=== PATIENT | male | born 1965 | race Caucasian/White ===

== ENCOUNTER 2023-08-02 02:05 | Emergency (ER) | payer SELFPAY ==
[2023-08-02 02:08] VITALS: BP 141/102
[2023-08-02 02:40] VITALS: BMI 22.5
[2023-08-02 03:00] VITALS: BP 137/89
[2023-08-02] MEDS: AUGMENTIN 875 MG/125 MG 1 TABLET PO (04:12)
[2023-08-02 04:24] LABS: % Basophils 1.2 % (0-2); % Eosinophils 0.8 % (0-6); % Immature Granulocytes 0.3 % (0-0.5); % Lymphocytes 28.8 % (20.5-51.1); % Monocytes 9.5 % (1.7-9.3); % Neutrophils 59.4 % (42.2-75.2); Absolute Basophils 0.1 10^3/uL (0-0.2); Absolute Eosinophils 0.1 10^3/uL (0-0.7); Absolute Lymphocytes 2.1 10^3/uL (1.2-3.4); Absolute Monocytes 0.7 10^3/uL (0.1-0.6); Absolute Neutrophils 4.3 10^3/uL (1.4-6.5); Hematocrit 41.4 % (39.0-52.0); Hemoglobin 15.1 g/dL (13.0-18.0); Mean Corp Hgb Conc. 36.5 g/dL (33.0-37.0); Mean Corpuscular Hgb 35.1 pg (27.0-31.0); Mean Corpuscular Volume 96.3 fL (80.0-94.0); Mean Platelet Volume 9.6 fL (7.4-10.4); Nucleated Red Blood Cells % 0 % (-); Platelet Count 239 10^3/uL (130-400); Red Cell Dist. Width 12.2 % (11.5-14.5); White Blood Cell Count 7.3 10^3/uL (4.8-10.8)
--- NOTE | 2023-08-02 04:27 | ED.SKININJ ---
HPI-Injury
General
Chief Complaint: Bite
Source: patient, previous hospital records (Previous ED visit November 2020 with complaints of chest pain, bilateral leg pain, cardiology consult during that ED visit. Patient offered admission but he declined.) and other (Limited records obtained via
telephone conversation with nursing supervisory civil engineer at [facility] regarding recent hospitalization there last week.)
Exam Limitations: none
Time Seen by Provider: 08/02/23 02:38
Nursing documentation reviewed up to this point in time: agreed with
Travel History
Have you had any contact with someone who has COVID-19?: No
Do you have any symptoms of coronavirus? Fever > 100 degrees, chills, cough, shortness of breath, sore throat, loss of taste or smell, muscle aches, or headache?: No
History of Present Illness-Injury
Initial Injury comments:
This is a 58-year-old gentleman who has longstanding history of daily alcohol use, history of coronary artery disease status post CABG 2 years ago, history of peripheral vascular disease status post right femoropopliteal bypass 1 year ago along with
history of left lower leg arterial stent 2 to 3 years ago.
He admits to chronic bilateral leg pain that has been ongoing for a number of years, pain worsens with ambulation generally able to walk approximately 50 yards and then needs to stop due to bilateral leg pain. He does admit to having 'good days and
bad days' but overall pain has been persistent for a number of years.
He follows with cardiology as well as vascular surgery at [facility] but admits to labs and follow-up more recently as he lost his healthcare coverage 3 to 4 months ago.
With worsening bilateral leg pain he presented to [facility] and was admitted for approximately 5 to 6 days last week being discharged on July 27.
During that hospitalization he underwent CT angiogram of the lower extremities, arterial ultrasound of lower extremities, echocardiogram. He was found to have acute occlusion of left femoral artery with distal reconstitution and was also noted to
have chronic right SFA occlusion with reconstitution distally along with patent femoral and popliteal bypass. Initially treated with IV heparin he was transition to low-dose aspirin and Plavix.
During that hospitalization he was evaluated by cardiology as well as neurosurgery and vascular surgery.
He was provided paperwork to help him obtain healthcare coverage. He has this paperwork at home but has not filed it as yet.
He was discharged on the with a prescription for low-dose aspirin, atorvastatin, Wellbutrin, Plavix, Cymbalta, folic acid, gabapentin, Toprol XL, multivitamin, thiamine and was also prescribed oxycodone IR 5 mg #15--4-day prescription.
Patient admits to moderate improvement in pain with oxycodone but pain has returned when oxycodone ran out.
He admits that he has not attempted to reach out to his primary care physician nor any of the specialists due to lack of healthcare coverage.
He denies chest pain, denies coughing or shortness of breath, denies fever nor chills. He does admit to mild chronic low back pain but denies increase in low back pain. No difficulty moving his bowels or bladder. He denies weakness nor numbness.
He plan to come to [facility] due to recurrent bilateral lower extremity pain and while he was lying in bed with his roommates dog, he states the dog suddenly became startled and inadvertently bit him on the right cheek. This happened
around 9 PM tonight. He admits to intermittent oozing of blood from right cheek bite wound, mild local pain but denies numbness, no dental injury.
Patient states he is up-to-date with Tdap having received this within the past year or 2.
The dog is reportedly up-to-date with immunizations including rabies vaccine.
Past History
Past History
ED Past Medical History: CAD, HTN, Hypercholesterolemia, Psychiatric and Other (Peripheral vascular disease, chronic bilateral leg pain/peripheral neuropathy, lumbar disc disease)
ED Past Surgical History: Cardiac (CABG 2021) and Other (Right femoropopliteal bypass, left lower extremity arterial stent)
Social History
Tobacco: Smoker
Alcohol: Daily
Drug: None
Personal: Single
Living: with roommate
Employment: Not employed
Family History
Family History: Other (Noncontributory)
Phy Exam
Physical Exam
Physical Exam:
GENERAL: 58-year-old gentleman appears somewhat older than stated age, bright and alert, easily communicative, pleasant, appears in no acute distress. Moderate odor of alcohol to the patient's breath.
EYE: pupils equal and reactive. anicteric
NECK: Supple, nontender, no meningismus, no significant adenopathy.
ENT: posterior pharynx is clear, oral mucosa is moist. TM clear b/l, nares patent. The right cheek has 3 very superficial minute abrasions along with a 2 cm superficial laceration just lateral to these abrasions. This laceration is superficial
dermal in depth. No active bleeding. There is minimal local tenderness to palpation. No erythema. No oozing. No hematoma. Teeth are intact. Full mandible range of motion without difficulty nor pain.
CARDIAC: Regular rate and rhythm. no murmur.
LUNGS: Clear breath sounds bilaterally, no acute respiratory distress, no wheezes/rales/rhonchi
ABDOMEN: Soft, nondistended, without focal tenderness, normoactive BS.
BACK: No midline bony tenderness. Straight leg raising is negative bilaterally.
NEUROLOGICAL: Alert and oriented x3, no focal neuro deficits. Gait is harris and steady.
SKIN: Warm and dry, normal color, skin intact. No rash.
MUSCULOSKELETAL: There is very minimal erythema to bilateral feet left greater than right foot both feet are warm to touch with palpable dorsalis pedis pulses bilaterally. Rapid distal capillary refill bilaterally. No C/C/E. peripheral pulses are
full and equal b/l. No appreciable tenderness to bilateral lower extremities. Full range of motion without difficulty.
PSYCH: Normal and appropriate interaction.
Course
Orders/Labs/Results
Orders:
Orders
08/02/23 03:59
Amoxicillin 875 mg/Clav 125 mg [Augmentin 875 mg/125 mg] 1 tablet PO NOW STA
08/02/23 04:12
Alcohol Urgent
Complete Blood Count/With Diff Urgent
Comprehensive Metabolic Panel Urgent
Lactic Acid Urgent
08/02/23 04:26
Gabapentin [Neurontin] 300 mg PO NOW STA
Oxycodone/Acetaminophen [Percocet 5/325] 1 tablet PO NOW STA
Abnormal Lab Results
08/02/23
04:12
RBC 4.30 L 10^6/uL
(4.70-6.10)
MCV 96.3 H fL
(80.0-94.0)
MCH 35.1 H pg
(27.0-31.0)
Absolute Monos (auto) 0.7 H 10^3/uL
(0.1-0.6)
Monocytes % 9.5 H %
(1.7-9.3)
Chloride 109 H mmol/L
(98-107)
Glucose 104 H mg/dl
(70-99)
08/02/23 04:12
08/02/23 04:12
Vital Signs
Initial and Last Documented VS:
Initial Vital Signs
Temp Pulse Resp BP Pulse Ox
98 F 124 24 141/102 98
08/02/23 02:08 08/02/23 02:08 08/02/23 02:08 08/02/23 02:08 08/02/23 02:08
Last Documented Vital Signs
Temp Pulse Resp BP Pulse Ox
98 F 104 18 137/89 98
08/02/23 02:08 08/02/23 03:00 08/02/23 03:00 08/02/23 03:00 08/02/23 02:08
MDM/Problems Addressed
Differential Diagnosis Includes:
Patient presents with longstanding history of bilateral leg pain, ongoing for many years with recent hospitalization for acute occlusive thrombus left femoral artery. Treated with IV heparin and discharged on aspirin and Plavix. He did not require
intervention.
He presents with persistent bilateral lower extremity pain that appears peripheral claudication in nature, worse with ambulation, improves with rest.
There also seems to be a neuropathic component to his leg pain, has history of chronic low back pain as well as chronic alcohol abuse. Recent evaluation with neurosurgeon during hospitalization with reported no specific recommendations other than
resumption of gabapentin.
Follow-up has been difficult for patient due to lapse in healthcare coverage.
He has been provided with paperwork to obtain medical assistance but admits that he has yet to file this paperwork.
Overall appears comfortable. Bilateral lower extremities are warm with palpable dorsalis pedis pulses bilaterally. Rapid capillary refill. There is no evidence of acute arterial ischemia. He does have minimal redness to toes of the left foot but
no definitive evidence of cellulitis. He has not had a fever.
Will check labs as well as lactic acid.
Patient requesting pain medication and although was prescribed a short course of oxycodone upon discharge last week we did discuss the hazards of narcotic pain medications along with daily alcohol consumption.
If labs are unremarkable I have agreed to write a small prescription for Percocet but patient has been cautioned that further prescriptions will not be provided by this ED.
He will ultimately require follow-up with his PCP as well as vascular surgeon and central office trouble shooter.
As far as the dog bite wound. Patient has a superficial laceration right cheek that does not require surgical repair. Wound has been thoroughly irrigated with normal saline solution. Will start a 1 week course of Augmentin for infection
prevention and wound will be dressed with bacitracin and a bandage.
Chronic conditions affecting care: HTN, CAD, PVD, Neurological disorder and Psychiatric illness
*Critical Care Note
Total Time (30-74mins, 75-104mins- exclusive of procedures): Not Applicable
Patient Management
Social determinants of health affecting care: Financial situation and Poor outpatient follow-up
ED Attending Note
-
Portions of this chart may have been created with voice recognition software.� Occasional wrong word or��sound alike� substitutions may have occurred due to the inherent limitations of voice recognition software.
Discharge Plan
Departure
Patient Disposition: Home (Routine Discharge)
Date of Disposition: 08/02/23
Time of Disposition: 05:06
Patient with high blood pressure during this ER visit?: No
Condition: Good
Discharge Problem:
acute on chronic b/l leg pain, chronic arterial peripheral vascular dis, Neuropathy involving both lower extremities, dog bite wound right face
Instructions: Animal Bites (DC), Peripheral Vascular (Arterial) Disease (DC), Peripheral Neuropathy (DC)
Prescriptions:
New
oxycodone-acetaminophen [Percocet] 5-325 mg Tablet
1 tab PO TIDPRN PRN (Reason: pain) Qty: 10 0RF
amoxicillin-pot clavulanate 875-125 mg tablet
1 tab PO BID Qty: 14 0RF
No Action
aspirin 81 MG tablet,delayed release (DR/EC)
81 mg PO DAILY
metoprolol succinate 50 MG tablet extended release 24 hr
50 mg PO BID Qty: 60 11RF
isosorbide mononitrate 30 MG tablet extended release 24 hr
30 mg PO DAILY Qty: 30 11RF
Referrals:
Kyra Bragg CRNP [Family Provider] - Call in 1-3 days for appt
Activity Restrictions/Additional Instructions:
I encourage you to follow-up with your vascular surgeon, central office trouble shooter as well as your primary care physician.
Continue current medications as prescribed upon discharge at [facility] last week.
Keep bite wound clean and apply bacitracin/antibiotic ointment once daily.
You have been prescribed Augmentin which is an antibiotic to be taken twice daily over the next week to help prevent infection from bite wound.
You have also been prescribed a few Percocet for leg pain. All further pain medication prescriptions must be provided by your primary care physician versus specialists.
Interventions
Interventions:
*Risk Screen - Suicide Last Done: 08/02/23 02:40
*General Assessment Last Done: 08/02/23 02:40
*Neglect/Abuse Screening Last Done: 08/02/23 02:40
ED- Fall Risk Assessment Last Done: 08/02/23 02:42
*ED COVID-19 Vaccine History Last Done: 08/02/23 02:40
ED-Musculoskeletal Assessment Last Done: 08/02/23 02:42
ED-Peripheral Vascular Assessment Last Done: 08/02/23 02:42
ED-Skin Assessment Last Done: 08/02/23 02:42
[2023-08-02] MEDS: NEURONTIN 300 MG PO (04:32)
[2023-08-02] MEDS: PERCOCET 5/325 1 TABLET PO (04:32)
[2023-08-02 04:40] LABS: Lactic Acid 1.4 mmol/L (0.7-2.0)
[2023-08-02 04:42] LABS: ALT (SGPT) 44 U/L (0-50); AST (SGOT) 44 U/L (17-59); Albumin 4.5 g/dl (3.5-5.0); Alcohol 233 mg/dl; Alkaline Phosphatase 63 U/L (38-126); Blood Urea Nitrogen 13 mg/dl (9-20); Calcium 9.1 mg/dl (8.4-10.2); Carbon Dioxide 25 mmol/L (22-30); Chloride 109 mmol/L (98-107); Estimated Creatinine Clearance 86 ml/min; Glucose 104 mg/dl (70-99); Potassium 3.8 mmol/L (3.5-5.1); Sodium 144 mmol/L (135-145); Total Bilirubin 0.4 mg/dl (0.2-1.3); Total Protein 7.3 g/dl (6.3-8.2); eGFR > 60.00
[2023-08-02 05:52] VITALS: BP 140/87
== END 2023-08-02 05:54 | disposition home or self-care (01) ==
LOC: EMR 02:05
PROVIDERS: EMERGENCY PHYSICIAN Emergency Medicine; FAMILY PHYSICIAN Nurse Practitioner Primary Care
DX: S01.411A Laceration without foreign body of right cheek and temporomandibular area, initial encounter (principal); W54.0XXA Bitten by dog, initial encounter; G62.9 Polyneuropathy, unspecified; M79.605 Pain in left leg; M79.604 Pain in right leg; I73.9 Peripheral vascular disease, unspecified; I10 Essential (primary) hypertension; I25.10 Atherosclerotic heart disease of native coronary artery without angina pectoris; F10.10 Alcohol abuse, uncomplicated; M54.50 Low back pain, unspecified; E78.00 Pure hypercholesterolemia, unspecified; G89.29 Other chronic pain; F17.200 Nicotine dependence, unspecified, uncomplicated; Z95.1 Presence of aortocoronary bypass graft; Z95.5 Presence of coronary angioplasty implant and graft; Z79.02 Long term (current) use of antithrombotics/antiplatelets; Z79.82 Long term (current) use of aspirin
CPT/HCPCS: 99283; 80053; 82077; 83605; 85025

== ENCOUNTER 2023-12-25 10:34 | Inpatient (IN) | payer OTHER, SELFPAY ==
[2023-12-25] VITALS (16 sets, daily range): BP systolic 89–152; BP diastolic 65–93; BMI 22.7; BMI 22.8
--- NOTE | 2023-12-25 07:12 | EDRN ---
Dr. Hernandez currently at the pts bedside speaking with the pt and the pts sister
--- NOTE | 2023-12-25 07:20 | ED.GENMED ---
History of Present Illness
General
Chief Complaint: Musculo-Skeletal Complaint
Source: patient and family
Exam Limitations: none
Time Seen by Provider: 12/25/23 06:56
Travel History
Have you had any contact with someone who has COVID-19?: Yes
Comment: spouse
Do you have any symptoms of coronavirus? Fever > 100 degrees, chills, cough, shortness of breath, sore throat, loss of taste or smell, muscle aches, or headache?: No
History of Present Illness
History of Present Illness:
58-year-old male who presents with a left leg injury. 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 He went to get more would and fell down into a ditch and injured his leg. Patient states he had to crawl back into the
house. Today he had to crawl to the car. Patient states he cannot bear weight on the leg. No head injury. No neck pain. No back pain. No numbness or tingling. He does have long history of vascular disease. He does continue to smoke.
Past History
Past History
ED Past Medical History: CAD, HTN, Hypercholesterolemia, Psychiatric and Other (Peripheral vascular disease, chronic bilateral leg pain/peripheral neuropathy, lumbar disc disease)
ED Past Surgical History: Cardiac (CABG 2021) and Other (Right femoropopliteal bypass, left lower extremity arterial stent)
Social History
Tobacco: Smoker
Alcohol: Daily
Drug: None
Personal: Single
Living: with roommate
Employment: Not employed
Family History
Family History: Other (Noncontributory)
Phy Exam
Physical Exam
Physical Exam:
CONSTITUTIONAL Vital signs reviewed, Patient alert and oriented to person, place and time. Well-appearing
HEAD atraumatic, normocephalic.
EYES eyelids normal to inspection, Extraocular muscles intact, Conjunctiva normal, Sclera normal.
NECK normal range of motion, Trachea midline, no jugular venous distention.
RESP no respiratory distress
BACK No obvious deformities
UPPER EXTREMITY Gross Range of motion normal, gross motor strength normal
LOWER EXTREMITY swelling noted to the left lower extremity with deformity. Chronic venous stasis changes to bilateral lower extremities. Does have distal perfusion. Moderate tenderness and unable to range the ankle or knee due to pain
NEURO Speech normal, No focal motor deficits include, Mary coma scale 15, Memory normal, Cranial Nerves intact to screening exam.
SKIN Skin warm, dry, and normal in color.
PSYCHIATRIC Patient oriented to person place and time, Normal affect.
Course
Orders/Labs/Results
Orders:
Orders
12/25/23 06:46
CR Leg Tibia/fibula Left 2 Vw Urgent
Comment:
Reason For Exam: injury
12/25/23 07:20
HYDROmorphone [Dilaudid] 1 mg IV NOW STA
12/25/23 07:24
Complete Blood Count/With Diff Urgent
Comprehensive Metabolic Panel Urgent
Vital Signs
Initial and Last Documented VS:
Initial Vital Signs
Temp Pulse Resp BP Pulse Ox
98 F 74 16 116/88 95
12/25/23 06:35 12/25/23 06:35 12/25/23 06:35 12/25/23 06:35 12/25/23 06:35
Last Documented Vital Signs
Temp Pulse Resp BP Pulse Ox
98 F 74 16 116/88 95
12/25/23 06:35 12/25/23 06:35 12/25/23 06:35 12/25/23 06:35 12/25/23 06:35
MDM/Problems Addressed
MDM/Problems Addressed:
Acute displaced distal tibial fracture, proximal fibula fracture, distal fibula fracture, alcohol abuse, tobacco abuse
*Radiology
Radiology exam reviewed: preliminary read by ED provider (Displaced tibial fracture, proximal and distal fibular fracture)
*Pulse Oximetry
Patient hypoxic: no
*Critical Care Note
Total Time (30-74mins, 75-104mins- exclusive of procedures): 30 minutes
Data Reviewed
Source: patient and family
Further Testing Considered But Not Given:
Consider CT of the head but patient did not hit his head and no complaints.
Patient Management
Discussion with other providers: Hospitalist and Physician Asst (Discussed with orthopedics)
Escalation/DeEscalation of care consider admission/obs:
Case discussed with orthopedics who likely will need fracture repair today. Admit. pain control
ED Attending Note
-
Portions of this chart may have been created with voice recognition software.� Occasional wrong word or��sound alike� substitutions may have occurred due to the inherent limitations of voice recognition software.
Discharge Plan
Departure
Patient Disposition: Admit
Date of Disposition: 12/25/23
Time of Disposition: 07:43
Admit to: Med/Surg
Presentation/result/management discussed w/ accepting MD/DO: Hospitalist
Discharge Problem:
displaced tibial fracture, Closed fibular fracture
Prescriptions:
No Action
aspirin 81 MG tablet,delayed release (DR/EC)
81 mg PO DAILY
metoprolol succinate 50 MG tablet extended release 24 hr
50 mg PO BID Qty: 60 11RF
isosorbide mononitrate 30 MG tablet extended release 24 hr
30 mg PO DAILY Qty: 30 11RF
Referrals:
Kyra Bragg CRNP [Family Provider] -
Interventions
Interventions:
*Risk Screen - Suicide Last Done: 12/25/23 06:35
*General Assessment Last Done: 12/25/23 06:35
*Neglect/Abuse Screening Last Done: 12/25/23 06:35
ED- Fall Risk Assessment Last Done: 12/25/23 06:56
*ED COVID-19 Vaccine History Last Done: 12/25/23 06:56
ED-Musculoskeletal Assessment Last Done: 12/25/23 06:56
Discharge Date and Time
Print Language: TAJIK
[2023-12-25] MEDS: DILAUDID 1 MG IV ×2 (07:26→08:16)
[2023-12-25 07:35] LABS: % Basophils 0.5 % (0-2); % Eosinophils 0.1 % (0-6); % Immature Granulocytes 0.5 % (0-0.5); % Monocytes 4.2 % (1.7-9.3); % Neutrophils 84.7 % (42.2-75.2); Absolute Lymphocytes 0.8 10^3/uL (1.2-3.4); Absolute Monocytes 0.3 10^3/uL (0.1-0.6); Absolute Neutrophils 6.8 10^3/uL (1.4-6.5); Hematocrit 40.6 % (39.0-52.0); Hemoglobin 14.8 g/dL (13.0-18.0); Mean Corp Hgb Conc. 36.5 g/dL (33.0-37.0); Mean Corpuscular Hgb 33.7 pg (27.0-31.0); Mean Corpuscular Volume 92.5 fL (80.0-94.0); Mean Platelet Volume 9.4 fL (7.4-10.4); Nucleated Red Blood Cells % 0 % (-); Platelet Count 230 10^3/uL (130-400); Red Blood Cell Count 4.39 10^6/uL (4.70-6.10); Red Cell Dist. Width 11.8 % (11.5-14.5); White Blood Cell Count 8.1 10^3/uL (4.8-10.8)
[2023-12-25 07:49] LABS: ALT (SGPT) 74 U/L (0-50); AST (SGOT) 67 U/L (17-59); Albumin 4.4 g/dl (3.5-5.0); Alkaline Phosphatase 72 U/L (38-126); Blood Urea Nitrogen 15 mg/dl (9-20); Calcium 9.2 mg/dl (8.4-10.2); Carbon Dioxide 22 mmol/L (22-30); Chloride 101 mmol/L (98-107); Estimated Creatinine Clearance 83 ml/min; Glucose 146 mg/dl (70-99); Potassium 4.2 mmol/L (3.5-5.1); Sodium 135 mmol/L (135-145); Total Bilirubin 0.4 mg/dl (0.2-1.3); Total Protein 7.1 g/dl (6.3-8.2); eGFR > 60.00
[2023-12-25] MEDS: NSS 1000 IV ×3 (08:17→20:52)
--- NOTE | 2023-12-25 09:23 | EDRN ---
left leg posterior long leg splint placed by this RN and PCT Marjorie, splint was checked and assessed and approved by Dr. Hernandez
--- NOTE | 2023-12-25 10:09 | HPS.HSE ---
Family Physician
-
Family Physician: SUN Tolliver
Chief Complaint
-
Left leg pain
History of Present Illness
58-year-old male alcoholic, was drinking last night and fell into a trench about 1-1/2 feet deep. Injured his left leg. Came into the hospital today for evaluation.
Found to have a left tibial/fibular fracture and we were asked admit him to the hospital.
Medical History
Past Medical History
Past Medical History: Reports Other
Additional Past Medical History:
CAD
PAD
Alcoholism
Essential hypertension
Hyperlipidemia
Peripheral neuropathy
Past Surgical History: Reports Other
Additional Past Surgical History:
CABG
Left thumb surgery
Right lower extremity femoropopliteal bypass
Left lower extremity stenting
Social History
Tobacco: Smoker
Alcohol: Daily
Personal: Single
Family History
Family History: Not pertinent
Allergies / Home Medications
Allergies reflects when Allergies were last updated in [facility].
Home Medications with original date entered in [facility]
Allergy/Medication List:
Allergies
Allergy/AdvReac Type Severity Reaction Status Date / Time
No Known Allergies Allergy Verified 08/02/23 02:13
Home Medications
aspirin 81 mg tablet,delayed release 81 mg PO DAILY 12/03/20
isosorbide mononitrate 30 mg tablet,extended release 24 hr 30 mg PO DAILY Blood pressure #30 tabs 12/03/20
metoprolol succinate 50 mg tablet,extended release 24 hr 50 mg PO BID Blood pressure #60 tabs 12/03/20
Review of Systems
-
History Source: Patient
A 12 point ROS was completed and negative except as noted: Yes
Musculoskeletal: Reports Other (Left lower extremity pain)
Physical Exam
Vital Signs
Vital Signs
Temp Pulse Resp BP Pulse Ox
98.2 F 75 16 96/70 97
12/25/23 08:04 12/25/23 08:04 12/25/23 08:04 12/25/23 09:13 12/25/23 09:15
Physical Exam
General: Well Developed, Well Nourished, No Apparent Distress and Comfortable
HEENT: NormoCephalic, Anicteric and Moist mucous membranes
Respiratory: Clear
Cardiac: S1/S2 and Regular Rhythm
GI: Soft, Non Tender and Non Distended
Genito-urinary: Deferred by me
Musculoskeletal: No Clubbing, No Cyanosis and No Edema
Skin: Warm and Dry
Neuro: AO x 3
Hematologic/Lymphatic: No Lymphadenopathy
Psych: Calm
Laboratory Results
-
12/25/23 07:24
12/25/23 07:24
Laboratory Results
Total Bilirubin 0.4 mg/dl (0.2-1.3) 12/25/23 07:24
AST 67 U/L (17-59) H 12/25/23 07:24
ALT 74 U/L (0-50) H 12/25/23 07:24
Alkaline Phosphatase 72 U/L (38-126) 12/25/23 07:24
Impression/Plan
-
Acute traumatic left fibular/tubular fracture - due to fall and underlying osteoporosis. Admit to telemetry. Consult orthopedics. N.p.o. after midnight for surgical repair. Discussed with Dr. Jackson.
Check preoperative EKG.
Severe alcohol use disorder -Daily drinker. Drinks about 8 beers and 2 glasses of wine per day. Last drink was yesterday. High risk for alcohol withdrawal syndrome. Start phenobarbital and lorazepam as needed. Thiamine and folic acid. Follow
alcohol withdrawal protocol.
Osteoporosis -likely due to underlying alcoholism, tobacco dependence. Discussed with patient and sister to seek treatment as outpatient. Speak with primary care doctor. Highly recommend alcohol and tobacco cessation.
Hyperglycemia -glucose 146 this morning. Rule out diabetes. Check hemoglobin A1c.
CAD/CABG
PAD
Essential hypertension -currently hypotensive in the emergency room, likely due to hypovolemia. IV fluids ordered.
Hyperlipidemia
Peripheral neuropathy
Full code
Updated sister at the bedside.
--- NOTE | 2023-12-25 11:08 | EDRN ---
the pts sister is going home to bring the pts medication list in, the pt is unsure of prescription medications that he takes every day
--- NOTE | 2023-12-25 12:29 | EDRN ---
this RN called the receiving nurse and gave verbal report, paper report was also tubed up to the receiving unit
[2023-12-25 12:40] LABS: Glycohemoglobin (HgbA1c) 5.7 % (4.0-5.6)
[2023-12-25 13:21] LABS: INR 1.03; PT 13.4 Sec (11.4-14.6)
[2023-12-25 13:22] LABS: APTT 25.7 Sec (23.4-35.0)
[2023-12-25 13:26] LABS: Alcohol 13 mg/dl; GGTP 49 U/L (15-73); Magnesium 2.1 mg/dl (1.6-2.3); Phosphorus 3.9 mg/dl (2.5-4.5)
--- NOTE | 2023-12-25 13:27 | CON.ORTHO ---
Consultation
-
Date/Time Consultation Requested: 12/25/2023 0717
Date/Time Consultation Performed: 12/25/2023 1200
Requesting Provider: Wong Hernandez
Performing Provider: Diego Jackson
Reason for Consultation: Left leg injury
Consultation - Orthopedics
History
Orthopedic Surgery Note
CC: Left tibia and fibula fracture
HPI: 58-year-old male presents for evaluation of a left leg injury sustained yesterday. He was gathering firewood outside his home and stepped into a trench while it was dark outside. He felt sudden onset pain in his leg with inability to
weight-bear. He called back to his home and was brought to the emergency department. He denies numbness and tingling in the left foot. He denies pain in the other extremities. No head trauma. He reports smoking daily as well as consuming
alcohol daily.
PMH/PSH: CAD sp CABG, HL, PVD with h/o bypass, lumbar disk disease
Medications: reviewed. plavix
Family History: Family history was reviewed. Noncontributory
Social history: Active smoker, daily etoh
Exam
General appearance: Pleasant. No acute distress.
Head: Normocephalic/atraumatic
Nose: No lesions or discharge.
Skin: No obvious rashes or open wounds
Lungs: No audible wheezing, no cough or sputum production
Musculoskeletal:
LLE:
Long leg splint in place
Toes WWP
Fires EHL/FHL without pain
No pain with passive stretch of toes and ankle in dorsiflexion
Imaging:
Left tib-fib x-rays performed in the emergency department 12/25/2023 were reviewed by me. These show a spiral fracture of the midshaft of the tibia. There is displacement about 75% of the cortical width. There is a fracture of the distal fibula at
the level of the syndesmosis without signs of medial clear space widening. There is an oblique fracture of the proximal fibula as well.
Assessment and plan: 58-year-old male with a history of smoking presents after sustaining a left displaced tibia shaft fracture after a fall last night. No signs of compartment syndrome. I discussed treatment options with the patient including
operative and nonoperative treatment. We discussed that given the degree of displacement and the recovery process associated with nonoperative treatment a long-leg cast, shared decision was to proceed with left tibia shaft fracture ORIF with
intramedullary latasha. We discussed that the left distal fibula fracture be assessed at the time of surgery for stability and displacement once the tibia is out to length. Will also assess the soft tissue around the distal fibula. If necessary we
will also surgically fix the left distal fibula fracture with plate and screws. We discussed that he will be touchdown weightbearing for about 4 weeks. He will be placed in a cam walker. We discussed elevation and ice between now and surgery to
help reduce swelling. We discussed risks of surgery including possible infection, nonunion, hardware complication, DVT, need for further surgery, anterior knee pain. All questions were answered. We discussed the need for smoking cessation to help
reduce the risk of nonunion.
Plan for ORIF tomorrow 12/26/2023
NPO after midnight
Smoking cessation
Strict elevation and ice
q4 hours neurovascular checks
NWB LLE
Diego Jackson MD
> 75 minutes was spent reviewing the clinical information, evaluating the patient, and formulating clinical plan.
Allergies / Home Medications
Allergy/AdvReac Type Severity Reaction Status Date / Time
No Known Allergies Allergy Verified 08/02/23 02:13
�Medication �Instructions �Recorded
aspirin 81 mg tablet,delayed 81 mg PO DAILY 12/25/23
release
atorvastatin 40 mg tablet 40 mg PO DAILY 12/25/23
clopidogrel 75 mg tablet 75 mg PO DAILY 12/25/23
duloxetine 60 mg capsule,delayed 60 mg PO DAILY 12/25/23
release
gabapentin 800 mg tablet 1,600 mg PO DAILY 12/25/23
lorazepam 0.5 mg tablet 0.5 mg PO DAILY PRN anxiety 12/25/23
losartan 25 mg tablet 25 mg PO DAILY 12/25/23
magnesium oxide 400 mg (241.3 mg 400 mg PO DAILY 12/25/23
magnesium) tablet
metoprolol succinate 25 mg 50 mg PO DAILY 12/25/23
tablet,extended release 24 hr
Vital Signs / Lab Results
Temp Pulse Resp BP Pulse Ox
98 F 76 20 152/93 96
12/25/23 13:09 12/25/23 13:09 12/25/23 13:09 12/25/23 13:09 12/25/23 13:09
12/25/23 07:24
12/25/23 07:24
[2023-12-25] MEDS: NSS 500 IV (13:42)
[2023-12-25] MEDS: CYMBALTA DELAYED RELEASE 60 MG PO (13:44)
[2023-12-25] MEDS: LIPITOR 40 MG PO (13:44)
[2023-12-25] MEDS: DILAUDID 0.5 MG IV ×3 (13:45→22:53)
--- NOTE | 2023-12-25 13:54 | PTCARENOTE ---
Received patient awake and alert to floor at 1300, accompanied by sister . Dilaudid given for pain.
[2023-12-25] MEDS: PHENOBARBITAL 104 MG IV (14:04)
[2023-12-25] MEDS: NICODERM TRANSDERMAL 14 MG TRANSDERM (15:12)
[2023-12-25] MEDS: THIAMINE INJECTION 200 MG IV ×2 (15:14→22:52)
[2023-12-25] MEDS: HEPARIN 5000 UNITS SC (15:15)
[2023-12-25] MEDS: LOPRESSOR 12.5 MG PO ×2 (17:00→22:52)
[2023-12-25] MEDS: NEURONTIN 800 MG PO (20:35)
[2023-12-25] MEDS: PHENOBARBITAL 97.5 MG IV (20:38)
[2023-12-25 20:54] LABS: Amphetamines Negative (Negative); Barbiturates Positive (Negative); Benzodiazepines Negative (Negative); Buprenorphine Negative (Negative); Cocaine Negative (Negative); Marijuana Positive (Negative); Methadone Negative (Negative); Methamphetamines Negative (Negative); Opiates Positive (Negative); Phencyclidine Negative (Negative); Tricyclic Antidepressants Negative (Negative)
[2023-12-25 21:09] LABS: Fentanyl, Urine Negative (Negative)
[2023-12-26] VITALS (23 sets, daily range): BP systolic 75–128; BP diastolic 45–98
[2023-12-26 02:11] LABS: Urine Albumin Negative (Neg - Trace); Urine Bilirubin Negative (Negative); Urine Character Slightly Cloudy (Clear); Urine Color Yellow; Urine Glucose Negative (Negative); Urine Ketone Negative (Negative); Urine Leukocyte Negative (Negative); Urine Nitrite Negative (Negative); Urine Occult Blood Negative (Negative); Urine Urobilinogen Negative (Neg - 1+)
[2023-12-26] MEDS: DILAUDID 0.5 MG IV ×4 (03:12→22:09)
[2023-12-26] MEDS: TYLENOL 650 MG PO (03:54)
[2023-12-26] MEDS: LOPRESSOR 12.5 MG PO ×2 (05:43→17:13)
[2023-12-26 06:29] LABS: Hematocrit 36.9 % (39.0-52.0); Hemoglobin 13.2 g/dL (13.0-18.0)
[2023-12-26 07:11] LABS: ALT (SGPT) 53 U/L (0-50); AST (SGOT) 43 U/L (17-59); Albumin 3.5 g/dl (3.5-5.0); Alkaline Phosphatase 78 U/L (38-126); Blood Urea Nitrogen 10 mg/dl (9-20); Calcium 8.3 mg/dl (8.4-10.2); Carbon Dioxide 23 mmol/L (22-30); Chloride 102 mmol/L (98-107); Estimated Creatinine Clearance 99 ml/min; Glucose 105 mg/dl (70-99); Potassium 3.7 mmol/L (3.5-5.1); Sodium 132 mmol/L (135-145); Total Bilirubin 0.8 mg/dl (0.2-1.3); eGFR > 60.00
--- NOTE | 2023-12-26 07:23 | W.PN.HOSP.TC ---
Addendum entered and electronically signed by Vasyl Marion DO 12/26/23 15:07:
I spoke with orthopedic service, Dr. Jackson.
He recommends cefazolin for 24 hours for perioperative infection prophylaxis followed by Keflex 500 mg twice daily for 7 days due to patient's known history of heavy smoking and high risk for infection.
Original Note:
Today's Communication/Plan
-
OR today
Assessment / Plan
Assessment / Plan
Gen-AAOx3, NAD
HEENT-NC, AT, anicteric, clear oral mm
Neck-supple
CV-reg, no M, +S1/S2
Lungs-clear B/L
Abd-soft, NT, ND
Ext-no edema
Musculoskeletal-no cyanosis, clubbing, left lower extremity splint
Skin-warm and dry
Neuro-grossly non-focal
Psych-calm, cooperative
Acute traumatic left fibular/tubular fracture - due to fall and underlying osteoporosis. Preoperative EKG reviewed. Appears to be at acceptable risk for orthopedic surgery today. Currently NPO. Continue analgesics. Orthopedics requested holding
subcutaneous heparin preoperatively.
Severe alcohol use disorder -Daily drinker. Drinks about 8 beers and 2 glasses of wine per day. Last drink was 12/23. High risk for alcohol withdrawal syndrome. Continue phenobarbital taper and lorazepam as needed. Thiamine and folic acid.
Follow alcohol withdrawal protocol.
Hyponatremia -132. Check serum osmolarity.
Osteoporosis -likely due to underlying alcoholism, tobacco dependence. Discussed with patient and sister to seek treatment as outpatient. Speak with primary care doctor. Highly recommend alcohol and tobacco cessation.
Hyperglycemia - Hemoglobin A1c 5.7% consistent with impaired fasting glucose.
CAD/CABG -stable. Denies exertional chest pain or shortness of breath.
PAD -with previous right lower extremity femoropopliteal bypass, left lower extremity stenting. Recommend outpatient follow-up with vascular surgery as he still gets claudication.
Essential hypertension -stable.
Hyperlipidemia -on atorvastatin.
Peripheral neuropathy
Full code
Anticipated Discharge: > 48 hours
Subjective/Interval History
-
Date of Service: December 26, 2023
Patient seen and examined. Complaining of left leg pain.
Objective Data
-
Labs:
Laboratory Results
12/26/23
05:36
Hgb 13.2
Hct 36.9 L
Sodium 132 L
Potassium 3.7
Chloride 102
Carbon Dioxide 23
BUN 10
Creatinine 0.7
Glucose 105 H
Calcium 8.3 L
Total Bilirubin 0.8
AST 43
ALT 53 H
Alkaline Phosphatase 78
Vital Signs:
Vital Signs
Temp Pulse Resp BP Pulse Ox
98.3 F 91 18 127/77 100
12/26/23 03:06 12/26/23 05:43 12/26/23 03:06 12/26/23 05:43 12/26/23 03:06
I&O
12/25/23 12/26/23 12/27/23
06:59 06:59 06:59
Intake Total 2039 / 2039
Output Total 1200 / 1200
Balance 840 / 840
Review of Systems
-
History Source: Patient
All other systems: Reviewed and negative
--- NOTE | 2023-12-26 07:32 | W.PN.UPDATE ---
Update Note
Progress Note Update
Plan to proceed to the OR today for left tibial shaft fracture ORIF with intramedullary latasha with possible left distal fibula fracture ORIF under the direction of Dr. Jackson. The patient has been medically cleared to proceed with surgery. Consent
obtained and placed in patient's chart. Patient to remain NPO. Hemoglobin 13.2 this morning.
[2023-12-26] MEDS: NICODERM TRANSDERMAL 14 MG TRANSDERM (07:45)
[2023-12-26] MEDS: CYMBALTA DELAYED RELEASE 60 MG PO (07:47)
[2023-12-26] MEDS: ASPIR LOW (ENTERIC COATED) 81 MG PO (07:47)
[2023-12-26] MEDS: MAG-TAB SR 84 MG PO (07:47)
[2023-12-26] MEDS: FOLVITE 1 MG PO (07:47)
[2023-12-26] MEDS: LIPITOR 40 MG PO (07:47)
[2023-12-26] MEDS: NEURONTIN 800 MG PO ×2 (07:47→20:12)
[2023-12-26] MEDS: THIAMINE INJECTION 200 MG IV ×2 (07:48→15:17)
[2023-12-26] MEDS: PHENOBARBITAL 97.5 MG IV ×3 (07:48→22:03)
[2023-12-26 09:05] LABS: Osmolality Serum 276 mOsm/kg (275-300)
[2023-12-26] MEDS: LOPRESSOR PO (13:18)
--- NOTE | 2023-12-26 14:59 | OR.RPT ---
Operative Report
Operative Report
Orthopedic Surgery Operative Note
Date of Operation: 12/26/2023
Preoperative Diagnosis: Left displaced tibia shaft fracture and distal fibula fracture
Postoperative Diagnosis: Same
Operation Performed: Left tibia shaft fracture open reduction and internal fixation with intramedullary nail
Surgeon: Victor Manuel Jackson MD
Assistants: Tony Canseco PA-C who helped with retraction and positioning
Anesthesia: General
Complications: None
Estimated Blood Loss: 100mL
Implants:
[place] T2 tibial nail, 10mm x 315mm
5.0mm proximal and distal interlocking screws
Tourniquet Time: NA
Indications for Procedure:
58M with h/o smoking and etoh abuse who presented to the ED with left calf pain status post fall. Xrays showed a displaced tibia shaft fracture and proximal fibula fracture. He also had distal fibula fracture. We reviewed the natural history of the
problem and discussed the risks, benefits and alternatives of surgical and nonoperative treatment options. Shared decision was to proceed with surgical treatment. The patient understood the risks including, but not limited to, bleeding, infection,
failure to relieve pain, more pain than preop, damage to blood vessels and nerves, need for reoperation, mechanical failure of the implants, wound healing problems, stiffness, instability, blood clot, pulmonary embolism, myocardial infarction,
pneumonia, arrhythmia, CVA and . The patient accepted these risks and wished to proceed with surgery. All questions were answered and informed consent was obtained. He was advised that smoking can delay bone healing and increase risk of
nonunion.
Procedure in General:
The patient was identified in the preoperative holding area. The left limb was identified as the operative site and marked for safety. The patient was brought to the operating room and transferred to the operative table. General anesthesia was
performed. Ancef was administered prior to incision. All bony prominences were well padded. A bump was placed under the ipsilateral hip. The operative limb was prepped and draped in the usual sterile fashion.
The incision was marked 2 fingerbreadths above the superior aspect of the patella about 4 cm in length. The skin was incised and dissection was carried down to the quadriceps tendon. This was split in line with its fibers. The intra-articular
elastic guide was inserted into the joint with care to subluxate the patella medially or laterally to avoid iatrogenic injury. A guidepin was used to find the starting point on the medial aspect of the lateral tibial eminence in line with the
lateral cortex as well as the anterior cortex. Fluoroscopy was used to ensure no intra-articular penetration or disruption of the tibial tubercle. Guidewire was advanced and the opening reamer was used over the wire. Attention was turned to the
fracture. With a combination of traction and manipulation and point to point reduction clamp, the fracture was anatomically reduced. With the fracture reduced, ball-tipped guidewire was passed to the center of the distal tibia. The tibia was
sequentially reamed up to a 11 which had good cortical chatter. A 10mm diameter nail with 315mm length was selected. This was assembled the back table and passed down the diaphysis. Once in place, proximal interlocking screws were placed medial
to lateral through the jig. Distal interlocking screws were placed medial to lateral using perfect [place] technique. Final fluoroscopy shots confirmed anatomic reduction and appropriate screw length and hardware position. The ankle was stressed.
The fibula fracture had reduced once the tibia was reduced. The soft tissue around the ankle was quite edematous and tight. Given the stability of the ankle joint, the reduction of the distal fibula fracture with appropriate reduction of the tibia
shaft, given the soft tissue envelope and the patient's smoking and etoh history, decision was made not to ORIF the distal fibula. Instruments were available to do so.
The wound was irrigated copiously with saline. The deep tissue was closed with 0 PDS in running fashion about the knee. Skin was closed with 2-0 vicryl and 3-0 nylon in mattress pattern. Sterile dressings were applied. CAM boot was applied.
The patient awoke from anesthesia without any difficulties. The sponge and instrument counts were correct at the end of the case. I was present and participated in the entire procedure.
Post Operative Plan:
- Pain control
- PT/OT
- DVT prophylaxis: ASA 81mg daily x4 weeks
- WB Status: Touch down weight bearing LLE
- Compartment checks x24 hours
- The patient will follow up in 2 weeks for a xray check and wound check
Diego Jackson MD
[2023-12-26] MEDS: NSS 1000 IV (15:21)
--- NOTE | 2023-12-26 16:07 | PTCARENOTE ---
Received patient from OR awake alert and oriented. Left lower extremity with aquacel dressing on top of left thigh, small gauze bandage with tegaderm covering left knee. CAM boot intact to left lower leg. Patient denies pain states it is a 'little
achy' . Having lunch at present .
--- NOTE | 2023-12-26 16:19 | CM ---
construction engineering manager reviewed patient's chart and met with patient and patient states he lives with his mother and sister in a 2 story home, on 1st floor, patient was independent with adl's and ambulation. construction engineering manager was asked to offer patient
information, treatment and support for alcohol use but patient declined. Patient has a prescription plan and patient uses [facility] pharmacy.
Plan; Patient needs PT/OT evaluations and recommendations to assist with discharge planning for patient.
[2023-12-26] MEDS: ROXICODONE 10 MG PO (20:11)
[2023-12-26] MEDS: SENOKOT 17.1999999999999993 MG PO (20:12)
[2023-12-26] MEDS: COLACE 100 MG PO (20:12)
[2023-12-26] MEDS: ANCEF 5 IV (22:03)
[2023-12-27] VITALS (7 sets, daily range): BP systolic 94–122; BP diastolic 57–72; PULSE 83; O2SAT 98
[2023-12-27] MEDS: ANCEF 5 IV (03:33)
[2023-12-27] MEDS: NSS 1000 IV ×2 (03:33→15:47)
[2023-12-27] MEDS: DILAUDID 0.5 MG IV ×3 (03:34→20:05)
[2023-12-27] MEDS: LOPRESSOR 12.5 MG PO ×4 (05:26→23:00)
[2023-12-27 07:02] LABS: Hematocrit 30.1 % (39.0-52.0); Hemoglobin 10.7 g/dL (13.0-18.0)
[2023-12-27 07:57] LABS: ALT (SGPT) 31 U/L (0-50); AST (SGOT) 29 U/L (17-59); Alkaline Phosphatase 68 U/L (38-126); Blood Urea Nitrogen 13 mg/dl (9-20); Calcium 7.7 mg/dl (8.4-10.2); Carbon Dioxide 24 mmol/L (22-30); Chloride 101 mmol/L (98-107); Estimated Creatinine Clearance 77 ml/min; Glucose 110 mg/dl (70-99); Potassium 4.4 mmol/L (3.5-5.1); Sodium 131 mmol/L (135-145); Total Bilirubin 0.6 mg/dl (0.2-1.3); Total Protein 5.3 g/dl (6.3-8.2); eGFR > 60.00
--- NOTE | 2023-12-27 09:03 | W.PN.ORTHO ---
Today's Communication / Plan
-
58 yo M POD1 left tibia IM nail under the direction of Dr. Jackson
--TDWB to LLE. We appreciate the assistance of PT/OT.
--ASA 81 mg daily. Resume Plavix today.
--Pain control per primary. Ice and elevation for pain and edema control.
--Compartment checks x24 hours.
--Hgb 10.7 this AM. Continue to monitor.
--Maintain surgical dressings until 2 weeks post-op. OK to reinforce or change as needed.
--The patient will follow up in 2 weeks for a xray check and wound check.
--Case management consult for discharge planning.
Assessment
.
Distal Motor Intact: Yes
Dressing:
Clean, dry and intact.
Plan
.
Surgery / Date: L tibia IM nail, Renetta, 12/25
DVT Prophylaxis: Aspirin and Other (Plavix)
Activity:
Out of bed.
PT/OT
Subjective
.
.:
Mr. Guerrero is POD1 following his left tibia IM nail performed by Dr. Jackson. He is resting comfortably in bed this morning, and reports his symptoms are well controlled at present.
Vital Signs and Labs
.
Vital Signs and Labs:
Lab Results
12/27/23 06:12
12/27/23 06:12
Temp Pulse Resp BP Pulse Ox
99.0 F 83 16 104/62 99
12/27/23 08:00 12/27/23 08:00 12/27/23 08:00 12/27/23 08:00 12/27/23 08:00
PT 13.4 Sec (11.4-14.6) 12/25/23 13:01
INR 1.03 12/25/23 13:01
Physical Exam
-
Directed exam of the left lower extremity reveals surgical dressings in place. Bloody drainage on gauze/tegaderm dressing distally, otherwise clean, dry and intact. Generalized edema throughout the left lower extremity, but compartments soft and
nontender to touch. Patient able to wiggle toes, plantar and dorsiflex ankle. Neurovascularly intact distally.
--- NOTE | 2023-12-27 09:39 | W.PN.HOSP.TC ---
Today's Communication/Plan
-
PT/OT
Monitor for Alcohol withdrawal
Assessment / Plan
Assessment / Plan
Gen-AAOx3, NAD
HEENT-NC, AT, anicteric, clear oral mm
Neck-supple
CV-reg, no M, +S1/S2
Lungs-clear B/L
Abd-soft, NT, ND
Ext-no edema
Musculoskeletal-no cyanosis, clubbing, left lower extremity splint
Skin-warm and dry
Neuro-grossly non-focal
Psych-calm, cooperative
58-year-old male here with fall and left tib-fib fracture. Orthopedic surgery repaired on Wednesday. Multiple stable medical issues including alcoholism, CAD, PAD, hypertension, neuropathy.
Acute traumatic left fibular/tubular fracture status post left tibia shaft fracture open reduction and internal fixation with intramedullary nail
- due to fall and underlying osteoporosis.
- TDWB to LLE
- PT/OT
- ASA 81 mg daily. Resume Plavix today.
- Pain control per primary. Ice and elevation for pain and edema control.
- Compartment checks x24 hours.
- Continue to monitor Hgb
- Maintain surgical dressings until 2 weeks post-op. OK to reinforce or change as needed.
- The patient will follow up with orthopedics in 2 weeks for a xray check and wound check.
- Case management consult for discharge planning.
Severe alcohol use disorder -Daily drinker. Drinks about 8 beers and 2 glasses of wine per day. Last drink was 12/24/23 evening. High risk for alcohol withdrawal syndrome. Continue phenobarbital taper and lorazepam as needed. Thiamine and folic
acid. Follow alcohol withdrawal protocol.
Hyponatremia -132. Check urine osm and urine sodium, and serum osm.
Osteoporosis -likely due to underlying alcoholism, tobacco dependence. Discussed with patient and sister to seek treatment as outpatient. Speak with primary care doctor. Highly recommend alcohol and tobacco cessation.
Hyperglycemia - Hemoglobin A1c 5.7% consistent with impaired fasting glucose.
CAD/CABG -stable. Denies exertional chest pain or shortness of breath.
PAD -with previous right lower extremity femoropopliteal bypass, left lower extremity stenting. Recommend outpatient follow-up with vascular surgery as he still gets claudication.
Essential hypertension -stable.
Hyperlipidemia -on atorvastatin.
Peripheral neuropathy
Full code
Anticipated Discharge: 24 - 48 hours
Subjective/Interval History
-
Date of Service: December 27, 2023
Patient was seen and examined. No new symptoms or complaints except pain in his leg where he sustained trauma recently.
Objective Data
-
Labs:
Laboratory Results
12/27/23
06:12
Hgb 10.7 L
Hct 30.1 L
Sodium 131 L
Potassium 4.4
Chloride 101
Carbon Dioxide 24
BUN 13
Creatinine 0.9
Glucose 110 H
Calcium 7.7 L
Total Bilirubin 0.6
AST 29
ALT 31
Alkaline Phosphatase 68
Vital Signs:
Vital Signs
Temp Pulse Resp BP Pulse Ox
99.0 F 83 16 104/62 99
12/27/23 08:00 12/27/23 08:00 12/27/23 08:00 12/27/23 08:00 12/27/23 08:00
I&O
12/26/23 12/27/23 12/28/23
06:59 06:59 06:59
Intake Total 2040 / 2040 3105 / 3105
Output Total 1200 / 1200 1300 / 1300
Balance 840 / 840 1805 / 1805
[2023-12-27] MEDS: ROXICODONE 10 MG PO ×3 (09:43→22:33)
[2023-12-27] MEDS: NEURONTIN 800 MG PO ×2 (09:44→20:05)
[2023-12-27] MEDS: COLACE 100 MG PO ×2 (09:44→20:05)
[2023-12-27] MEDS: MAG-TAB SR 84 MG PO (09:45)
[2023-12-27] MEDS: CYMBALTA DELAYED RELEASE 60 MG PO (09:45)
[2023-12-27] MEDS: ASPIR LOW (ENTERIC COATED) 81 MG PO (09:45)
[2023-12-27] MEDS: SENOKOT 17.1999999999999993 MG PO ×2 (09:45→20:05)
[2023-12-27] MEDS: PLAVIX 75 MG PO (09:45)
[2023-12-27] MEDS: THIAMINE INJECTION 200 MG IV ×4 (09:46→23:01)
[2023-12-27] MEDS: LIPITOR 40 MG PO (09:46)
[2023-12-27] MEDS: FOLVITE 1 MG PO (09:46)
[2023-12-27] MEDS: PHENOBARBITAL 97.5 MG IV ×2 (09:47→15:48)
[2023-12-27] MEDS: NICODERM TRANSDERMAL 14 MG TRANSDERM (09:47)
--- NOTE | 2023-12-27 10:54 | CM ---
financial reporting manager met with patient this am and reviewed possible discharge options. financial reporting manager is waiting on PT/OT evaluations. Patient is agreeable to referrals to [facility], [facility] and [facility] if skilled rehab is recommended.
Plan; Possible skilled placement.
[2023-12-27] MEDS: LOPRESSOR PO (17:04)
[2023-12-27] MEDS: KEFLEX 500 MG PO (20:05)
[2023-12-27 20:57] LABS: Osmolality Serum 275 mOsm/kg (275-300)
[2023-12-27 22:13] LABS: Urine Sodium 142 mmol/L (30-90)
[2023-12-27 22:20] LABS: Osmolality Urine 544 mOsm/kg (300-900)
[2023-12-27] MEDS: LUMINAL 64.7999999999999972 MG PO (23:00)
[2023-12-28] VITALS (7 sets, daily range): BP systolic 124–145; BP diastolic 70–84; PULSE 100; O2SAT 97
[2023-12-28] MEDS: DILAUDID 0.5 MG IV
[2023-12-28] MEDS: ATIVAN 1 MG IV (00:47)
[2023-12-28] MEDS: ROXICODONE 5 MG PO ×3 (00:52→17:36)
[2023-12-28] MEDS: TYLENOL 650 MG PO (00:52)
--- NOTE | 2023-12-28 01:23 | PTCARENOTE ---
Patient c/o pain to L lower leg since beginning of shift, yet in no obvious distress. Given IV Dilaudid at 2005, patient able to fall asleep until awoken for 11pm vital signs. At this time patient states 10/10 pain. Dilaudid given again at 0000.
Patient continues to c/o excruciating pain, stating 'something must be wrong'. Pt diaphoretic, restless, thrashing in bed gripping L leg due to pain. MSAS 7. LATHE TENDER Lizeth Westfall notified. IV Ativan given as well as 5mg PO Oxy. When back to check on
patient a few minutes later, pt sitting on side of bed much calmer. Pt states pain now at a 5/10 and that he feels better. Pt states he thinks he may have had a panic attack but that he felt like he was going to . Presently, patient laying in bed
calmly, updated on use of PRN Ativan and pain meds for any further pain or withdraw symptoms.
[2023-12-28] MEDS: LOPRESSOR 12.5 MG PO ×4 (05:24→23:25)
--- NOTE | 2023-12-28 06:56 | W.PN.UPDATE ---
Update Note
Progress Note Update
Patient found sitting on the floor. I interviewed him at the bedside after he was returned to bed. He tried to stand up and he was unable to bear weight on L leg. He denies head trauma but did 'hit' his back but at this point he is comfortable. Left
leg looks stable. Encouraged him to call for assistance.
--- NOTE | 2023-12-28 07:52 | W.PN.ORTHO ---
Today's Communication / Plan
-
58 yo M POD2 left tibia IM nail under the direction of Dr. Jackson
--TDWB to LLE. We appreciate the assistance of PT/OT. Ambulate with assistance of a walker.
--ASA 81mg and Plavix have been resumed.
--Keflex 500mg BID x7 days postop.
--Pain control per primary. Ice and elevation for pain and edema control.
--Hgb pending this AM. Continue to monitor.
--Maintain surgical dressings until 2 weeks post-op. OK to reinforce or change as needed.
--The patient will follow up in 2 weeks for a xray check and wound check.
--Case management consult for discharge planning.
--Patient is orthopedically stable postoperatively. Orthopedics will sign off for now. Please reach out with any questions or concerns.
Assessment
.
Distal Motor Intact: Yes
Dressing:
Clean, dry and intact.
Plan
.
Surgery / Date: L tibia IM nail, Renetta, 12/25
DVT Prophylaxis: Aspirin and Other (Plavix)
Activity:
Out of bed.
PT/OT
Subjective
.
.:
Patient sitting up comfortably in bed this morning. He reports that his pain is well controlled. He states that he was able to get up to go to the bathroom yesterday with the assistance of a walker
Vital Signs and Labs
.
Vital Signs and Labs:
Temp Pulse Resp BP Pulse Ox
97.5 F 79 17 126/70 95
12/28/23 07:37 12/28/23 07:37 12/28/23 07:37 12/28/23 07:37 12/28/23 07:37
PT 13.4 Sec (11.4-14.6) 12/25/23 13:01
INR 1.03 12/25/23 13:01
Physical Exam
-
Directed exam of the left lower extremity reveals surgical dressings in place. Bloody drainage on gauze/tegaderm dressing distally, otherwise clean, dry and intact. Generalized edema throughout the left lower extremity, but compartments soft and
nontender to touch. Patient able to wiggle toes, plantar and dorsiflex ankle. Neurovascularly intact distally.
[2023-12-28] MEDS: MIRALAX 17 GRAMS PO (08:25)
[2023-12-28] MEDS: NICODERM TRANSDERMAL 14 MG TRANSDERM (08:25)
[2023-12-28] MEDS: KEFLEX 500 MG PO ×2 (08:25→19:53)
[2023-12-28] MEDS: COLACE 100 MG PO ×2 (08:26→19:53)
[2023-12-28] MEDS: FOLVITE 1 MG PO (08:26)
[2023-12-28] MEDS: LUMINAL 64.7999999999999972 MG PO ×3 (08:26→21:56)
[2023-12-28] MEDS: LIPITOR 40 MG PO (08:26)
[2023-12-28] MEDS: MAG-TAB SR 84 MG PO (08:26)
[2023-12-28] MEDS: CYMBALTA DELAYED RELEASE 60 MG PO (08:26)
[2023-12-28] MEDS: NEURONTIN 800 MG PO ×2 (08:26→19:52)
[2023-12-28] MEDS: PLAVIX 75 MG PO (08:26)
[2023-12-28] MEDS: SENOKOT 17.1999999999999993 MG PO ×2 (08:26→19:53)
[2023-12-28] MEDS: ASPIR LOW (ENTERIC COATED) 81 MG PO (08:26)
[2023-12-28] MEDS: THIAMINE INJECTION 200 MG IV (08:27)
[2023-12-28 08:51] LABS: % Basophils 0.8 % (0-2); % Eosinophils 1.3 % (0-6); % Immature Granulocytes 0.2 % (0-0.5); % Lymphocytes 27.3 % (20.5-51.1); % Monocytes 4.8 % (1.7-9.3); % Neutrophils 65.6 % (42.2-75.2); Absolute Basophils 0.1 10^3/uL (0-0.2); Absolute Eosinophils 0.1 10^3/uL (0-0.7); Absolute Lymphocytes 1.7 10^3/uL (1.2-3.4); Absolute Monocytes 0.3 10^3/uL (0.1-0.6); Absolute Neutrophils 4.1 10^3/uL (1.4-6.5); Hematocrit 30.2 % (39.0-52.0); Hemoglobin 10.3 g/dL (13.0-18.0); Mean Corp Hgb Conc. 34.1 g/dL (33.0-37.0); Mean Corpuscular Hgb 33.3 pg (27.0-31.0); Mean Corpuscular Volume 97.7 fL (80.0-94.0); Nucleated Red Blood Cells % 0 % (-); Red Blood Cell Count 3.09 10^6/uL (4.70-6.10); Red Cell Dist. Width 11.9 % (11.5-14.5); White Blood Cell Count 6.2 10^3/uL (4.8-10.8)
--- NOTE | 2023-12-28 09:25 | PN.CDI ---
CDI
- -
CDI:
Physician Documentation Request
Admit Date: 12/25/23 10:34
Dear Doctor Kendrick,
Please review the following and provide your response in the progress notes.
Clinical Indicators:
12/25 Operation Performed:
#Left tibia shaft fracture open reduction and internal fixation with intramedullary nail
#Estimated Blood Loss: 100mL
Laboratory Tests
12/25/23 12/26/23 12/27/23
07:24 05:36 06:12
Hgb 14.8 13.2 10.7 L
12/28/23
08:37
Hgb 10.3 L
Based on the above, please clarify, in the progress note, which of the following is the most likely condition evaluated , monitored and/or treated?
Acute blood loss anemia
Other(please specify)
Use of terms such as suspected, likely, concern for, or probable (associated with a specific diagnosis that is being evaluated, monitored, or treated as if it exists) are acceptable and can be coded in the inpatient setting, when documented at the
time of discharge.
Thank you,
Kayla Hill RN BSN CCDS
CDI Specialist
please contact via tiger text
Please use your independent medical judgment in providing your response.
--- NOTE | 2023-12-28 09:31 | PN.CDI ---
CDI
- -
CDI:
Physician Documentation Request
Admit Date: 12/25/23 10:34
Dear Doctor Kendrick,
Please review the following and provide your response in the progress notes.
Clinical Indicators:
PN, 12/26
#Monitor for Alcohol withdrawal
#Severe alcohol use disorder -Daily drinker.
#...Drinks about 8 beers and 2 glasses of wine per day. Last drink was 12/24/23 evening.
#High risk for alcohol withdrawal syndrome.
#...Continue phenobarbital taper and lorazepam as needed.
12/28/23 01:23 - Patient Care Note
#Patient c/o pain to L lower leg since beginning of shift, yet in no obvious distress.
#Given IV Dilaudid at 2005, patient able to fall asleep until awoken for 11pm vital signs.
#At this time patient states 10/10 pain. Dilaudid given again at 0000.
#Patient continues to c/o excruciating pain, stating 'something must be wrong'.
#Pt diaphoretic, restless, thrashing in bed gripping L leg due to pain. MSAS 7.
#MANAGER RN Lizeth Westfall notified. IV Ativan given as well as 5mg PO Oxy.
#Pt states he thinks he may have had a panic attack but that he felt like he was going to . #Presently, patient laying in bed calmly,
#...updated on use of PRN Ativan and pain meds for any further pain or withdraw symptoms.
Please provide further specificity as outlined below:
Alcohol use disorder with withdrawal
Alcohol dependence with withdrawal
Other(please specify)
Use of terms such as suspected, likely, concern for, or probable (associated with a specific diagnosis that is being evaluated, monitored, or treated as if it exists) are acceptable and can be coded in the inpatient setting, when documented at the
time of discharge.
Thank you,
Kayla Hill RN BSN CCDS
CDI Specialist
please contact via tiger text
Please use your independent medical judgment in providing your response.
[2023-12-28 10:01] LABS: ALT (SGPT) 25 U/L (0-50); AST (SGOT) 30 U/L (17-59); Alkaline Phosphatase 58 U/L (38-126); Blood Urea Nitrogen 11 mg/dl (9-20); Calcium 7.9 mg/dl (8.4-10.2); Carbon Dioxide 27 mmol/L (22-30); Chloride 101 mmol/L (98-107); Estimated Creatinine Clearance 77 ml/min; Glucose 136 mg/dl (70-99); Magnesium 1.7 mg/dl (1.6-2.3); Potassium 4.2 mmol/L (3.5-5.1); Sodium 131 mmol/L (135-145); Total Bilirubin 0.7 mg/dl (0.2-1.3); Total Protein 5.4 g/dl (6.3-8.2); eGFR > 60.00
--- NOTE | 2023-12-28 10:04 | CM ---
Chart reviewed and patient has been seen by physical therapy and recommendation is for home with visiting nurses, visiting nurse options reviewed with patient and he has selected [facility], [facility] liaison contacted.
Plan; Home with [facility].
--- NOTE | 2023-12-28 14:34 | W.PN.HOSP.TC ---
Today's Communication/Plan
-
High risk for alcohol withdrawal
Continue phenobarb taper and MSAS protocol
Ortho recommendations appreciated
Assessment / Plan
Assessment / Plan
Gen-AAOx3, NAD
HEENT-NC, AT, anicteric, clear oral mm
Neck-supple
CV-reg, no M, +S1/S2
Lungs-clear B/L
Abd-soft, NT, ND
Ext-no edema
Musculoskeletal-no cyanosis, clubbing, left lower extremity splint
Skin-warm and dry
Neuro-grossly non-focal
Psych-calm, cooperative
58-year-old male here with fall and left tib-fib fracture. Orthopedic surgery repaired on Wednesday. Multiple stable medical issues including alcoholism, CAD, PAD, hypertension, neuropathy.
Acute traumatic left fibular/tubular fracture status post left tibia shaft fracture open reduction and internal fixation with intramedullary nail
- due to fall and underlying osteoporosis.
- TDWB to LLE
- PT/OT
- ASA 81 mg daily. Continue Plavix.
- Pain control per primary. Ice and elevation for pain and edema control.
- Continue to monitor Hgb
- Maintain surgical dressings until 2 weeks post-op. OK to reinforce or change as needed.
- The patient will follow up with orthopedics in 2 weeks for a xray check and wound check.
- Case management consult for discharge planning.
Alcohol use disorder with withdrawal
Severe alcohol use disorder -Daily drinker. Drinks about 8 beers and 2 glasses of wine per day. Last drink was 12/24/23 evening. High risk for alcohol withdrawal syndrome. Continue phenobarbital taper and lorazepam as needed. Thiamine and folic
acid. Follow alcohol withdrawal protocol. Still with high MSAS score. Need to continue monitoring for alcohol withdrawal.
Acute blood loss anemia likely secondary to trauma and surgery -- continue to monitor CBC
Hyponatremia -132. Check urine osm and urine sodium, and serum osm.
Osteoporosis -likely due to underlying alcoholism, tobacco dependence. Discussed with patient and sister to seek treatment as outpatient. Speak with primary care doctor. Highly recommend alcohol and tobacco cessation.
Hyperglycemia - Hemoglobin A1c 5.7% consistent with impaired fasting glucose.
CAD/CABG -stable. Denies exertional chest pain or shortness of breath.
PAD -with previous right lower extremity femoropopliteal bypass, left lower extremity stenting. Recommend outpatient follow-up with vascular surgery as he still gets claudication.
Essential hypertension -stable.
Hyperlipidemia -on atorvastatin.
Peripheral neuropathy
Full code
Anticipated Discharge: > 48 hours
Subjective/Interval History
-
Date of Service: December 28, 2023
Patient was seen and examined. Overnight, he said he ended up on the floor on his back, but did not hurt himself. He denied any trauma from going down to the floor.
Objective Data
-
Labs:
Laboratory Results
12/28/23
08:37
WBC 6.2
Hgb 10.3 L
Hct 30.2 L
Plt Count
Sodium 131 L
Potassium 4.2
Chloride 101
Carbon Dioxide 27
BUN 11
Creatinine 0.9
Glucose 136 H
Calcium 7.9 L
Total Bilirubin 0.7
AST 30
ALT 25
Alkaline Phosphatase 58
Vital Signs:
Vital Signs
Temp Pulse Resp BP Pulse Ox
98.1 F 100 18 124/80 95
12/28/23 11:24 12/28/23 11:34 12/28/23 11:24 12/28/23 11:34 12/28/23 11:24
I&O
12/27/23 12/28/23 12/29/23
06:59 06:59 06:59
Intake Total 3105 / 3105 1100 / 1100
Output Total 1300 / 1300 625 / 625
Balance 1805 / 1805 475 / 475
[2023-12-28] MEDS: VITAMIN B1 100 MG PO (19:53)
[2023-12-29] MEDS: ROXICODONE 5 MG PO ×2 (02:45→07:56)
[2023-12-29 03:05] VITALS: BP 148/83
--- NOTE | 2023-12-29 03:49 | DOWNTIME ---
There was a [employer] Client Clam Treader Downtime on 12/29/2023 from 0100 to 12/29/2023 at 0337. Downtime documentation of patient's care, including medication administrations, has been reconciled in the electronic record per guidelines. Refer to the
patient's paper chart under the miscellaneous tab to see printed paper medication records and downtime forms.
[2023-12-29] MEDS: LOPRESSOR 12.5 MG PO ×4 (05:57→23:12)
[2023-12-29 07:19] LABS: % Basophils 0.7 % (0-2); % Eosinophils 1.2 % (0-6); % Immature Granulocytes 0.5 % (0-0.5); % Lymphocytes 24.7 % (20.5-51.1); % Monocytes 9.6 % (1.7-9.3); % Neutrophils 63.3 % (42.2-75.2); Absolute Eosinophils 0.1 10^3/uL (0-0.7); Absolute Lymphocytes 1.4 10^3/uL (1.2-3.4); Absolute Monocytes 0.6 10^3/uL (0.1-0.6); Absolute Neutrophils 3.7 10^3/uL (1.4-6.5); Hematocrit 31.1 % (39.0-52.0); Hemoglobin 10.9 g/dL (13.0-18.0); Mean Corpuscular Hgb 33.4 pg (27.0-31.0); Mean Corpuscular Volume 95.4 fL (80.0-94.0); Nucleated Red Blood Cells % 0 % (-); Red Blood Cell Count 3.26 10^6/uL (4.70-6.10); Red Cell Dist. Width 11.6 % (11.5-14.5); White Blood Cell Count 5.8 10^3/uL (4.8-10.8)
[2023-12-29 07:26] VITALS: BP 118/66
[2023-12-29] MEDS: SENOKOT 17.1999999999999993 MG PO ×2 (07:54→21:07)
[2023-12-29] MEDS: MIRALAX 17 GRAMS PO (07:54)
[2023-12-29] MEDS: FOLVITE 1 MG PO (07:55)
[2023-12-29] MEDS: COLACE 100 MG PO ×2 (07:55→21:07)
[2023-12-29] MEDS: CYMBALTA DELAYED RELEASE 60 MG PO (07:55)
[2023-12-29] MEDS: LIPITOR 40 MG PO (07:55)
[2023-12-29] MEDS: NICODERM TRANSDERMAL 14 MG TRANSDERM (07:55)
[2023-12-29] MEDS: MAG-TAB SR 84 MG PO (07:56)
[2023-12-29] MEDS: KEFLEX 500 MG PO ×2 (07:56→21:08)
[2023-12-29] MEDS: PLAVIX 75 MG PO (07:56)
[2023-12-29] MEDS: ASPIR LOW (ENTERIC COATED) 81 MG PO (07:57)
[2023-12-29] MEDS: VITAMIN B1 100 MG PO ×2 (07:57→21:07)
[2023-12-29] MEDS: LUMINAL 64.7999999999999972 MG PO (07:58)
[2023-12-29] MEDS: NEURONTIN 800 MG PO ×2 (07:58→21:08)
[2023-12-29 08:05] LABS: Mean Platelet Volume 10.3 fL (7.4-10.4); Platelet Count 164 10^3/uL (130-400)
[2023-12-29 08:07] LABS: ALT (SGPT) 24 U/L (0-50); AST (SGOT) 26 U/L (17-59); Albumin 3.4 g/dl (3.5-5.0); Alkaline Phosphatase 67 U/L (38-126); Blood Urea Nitrogen 11 mg/dl (9-20); Calcium 8.6 mg/dl (8.4-10.2); Carbon Dioxide 28 mmol/L (22-30); Chloride 97 mmol/L (98-107); Estimated Creatinine Clearance 77 ml/min; Glucose 91 mg/dl (70-99); Magnesium 1.7 mg/dl (1.6-2.3); Potassium 4.1 mmol/L (3.5-5.1); Sodium 132 mmol/L (135-145); Total Bilirubin 0.8 mg/dl (0.2-1.3); Total Protein 5.9 g/dl (6.3-8.2); eGFR > 60.00
[2023-12-29 11:32] VITALS: BP 124/76
[2023-12-29] MEDS: ROXICODONE 10 MG PO ×3 (12:13→21:15)
--- NOTE | 2023-12-29 12:38 | CM ---
Home with sister and mother, and [facility]
Plan; Home with [facility].
--- NOTE | 2023-12-29 12:51 | VNURNOTE ---
Home Health Liaison met with patient at 1130 to discuss [facility] nurse/therapy, visits, schedule and homebound status. Patient is agreeable and understands that visits at home will be 2-3 x per week to assess and teach medical management.
[facility] brochure provided with contact information. Patient is aware that [facility] will contact him for start of care in 1-2 days after discharge from .
[facility] referral completed in [facility].
--- NOTE | 2023-12-29 15:10 | WOUNDNOTE ---
WOC RN NOTE: Reviewed chart. Per ortho note, patient needs to keep surgical dressings in place for [address] Marks and suggested f/u with ortho for discharge instructions. TT [facility] liaison Jennifer Parra to give update on plan for
discharge instructions.
[2023-12-29 15:36] VITALS: BP 131/75
--- NOTE | 2023-12-29 15:49 | W.PN.HOSP.TC ---
Today's Communication/Plan
-
Complete phenobarb taper through tomorrow
Assessment / Plan
Assessment / Plan
Gen-AAOx3, NAD
HEENT-NC, AT, anicteric, clear oral mm
Neck-supple
CV-reg, no M, +S1/S2
Lungs-clear B/L
Abd-soft, NT, ND
Ext-no edema
Musculoskeletal-no cyanosis, clubbing, left lower extremity surgical wounds with bandages
Skin-warm and dry
Neuro-grossly non-focal
Psych-calm, cooperative
58-year-old male here with fall and left tib-fib fracture. Orthopedic surgery repaired on Wednesday. Multiple stable medical issues including alcoholism, CAD, PAD, hypertension, neuropathy.
Acute traumatic left fibular/tubular fracture status post left tibia shaft fracture open reduction and internal fixation with intramedullary nail
- due to fall and underlying osteoporosis.
- TDWB to LLE
- PT/OT
- ASA 81 mg daily. Continue Plavix.
- Pain control per primary. Ice and elevation for pain and edema control.
- Continue to monitor Hgb
- Maintain surgical dressings until 2 weeks post-op. OK to reinforce or change as needed.
- The patient will follow up with orthopedics in 2 weeks for a xray check and wound check.
- Case management consult for discharge planning.
Alcohol use disorder with withdrawal
Severe alcohol use disorder -Daily drinker. Drinks about 8 beers and 2 glasses of wine per day. Last drink was 12/24/23 evening. High risk for alcohol withdrawal syndrome. Continue phenobarbital taper and lorazepam as needed. Thiamine and folic
acid. Follow alcohol withdrawal protocol -- phenobarb taper to complete by tomorrow
Acute blood loss anemia likely secondary to trauma and surgery -- continue to monitor CBC
Hyponatremia -132. Check urine osm and urine sodium, and serum osm.
Osteoporosis -likely due to underlying alcoholism, tobacco dependence. Discussed with patient and sister to seek treatment as outpatient. Speak with primary care doctor. Highly recommend alcohol and tobacco cessation.
Hyperglycemia - Hemoglobin A1c 5.7% consistent with impaired fasting glucose.
CAD/CABG -stable. Denies exertional chest pain or shortness of breath.
PAD -with previous right lower extremity femoropopliteal bypass, left lower extremity stenting. Recommend outpatient follow-up with vascular surgery as he still gets claudication.
Essential hypertension -stable.
Hyperlipidemia -on atorvastatin.
Peripheral neuropathy
Patient will need a script for a rolling walker
Full code
Anticipated Discharge: Within 24 hours
Subjective/Interval History
-
Date of Service: December 29, 2023
Patient was seen and examined. He denied any new symptoms or complaints.
Objective Data
-
Labs:
Laboratory Results
12/29/23
06:33
WBC 5.8
Hgb 10.9 L
Hct 31.1 L
Plt Count 164 D
Sodium 132 L
Potassium 4.1
Chloride 97 L
Carbon Dioxide 28
BUN 11
Creatinine 0.9
Glucose 91
Calcium 8.6
Total Bilirubin 0.8
AST 26
ALT 24
Alkaline Phosphatase 67
Vital Signs:
Vital Signs
Temp Pulse Resp BP Pulse Ox
97.6 F 89 20 131/75 95
12/29/23 15:36 12/29/23 15:36 12/29/23 15:36 12/29/23 15:36 12/29/23 15:36
I&O
12/28/23 12/29/23 12/30/23
06:59 06:59 06:59
Intake Total 1100 / 1100 1080 / 1080
Output Total 625 / 625 3025 / 3025
Balance 475 / 475 -1945 / -1945
[2023-12-29] MEDS: LUMINAL 32.3999999999999986 MG PO ×2 (17:11→21:09)
[2023-12-29 19:55] VITALS: BP 117/61
[2023-12-29 22:57] VITALS: BP 120/66
[2023-12-30] MEDS: ROXICODONE 10 MG PO ×3 (01:18→09:50)
[2023-12-30 02:56] VITALS: BP 114/71
[2023-12-30] MEDS: LOPRESSOR PO (05:56)
[2023-12-30 06:06] LABS: % Basophils 0.7 % (0-2); % Eosinophils 1.4 % (0-6); % Immature Granulocytes 0.4 % (0-0.5); % Lymphocytes 23.4 % (20.5-51.1); % Monocytes 12.8 % (1.7-9.3); % Neutrophils 61.3 % (42.2-75.2); Absolute Eosinophils 0.1 10^3/uL (0-0.7); Absolute Lymphocytes 1.3 10^3/uL (1.2-3.4); Absolute Monocytes 0.7 10^3/uL (0.1-0.6); Absolute Neutrophils 3.5 10^3/uL (1.4-6.5); Hematocrit 31.2 % (39.0-52.0); Hemoglobin 11.1 g/dL (13.0-18.0); Mean Corp Hgb Conc. 35.6 g/dL (33.0-37.0); Mean Corpuscular Volume 92.9 fL (80.0-94.0); Mean Platelet Volume 10.2 fL (7.4-10.4); Nucleated Red Blood Cells % 0 % (-); Platelet Count 201 10^3/uL (130-400); Red Blood Cell Count 3.36 10^6/uL (4.70-6.10); Red Cell Dist. Width 11.7 % (11.5-14.5); White Blood Cell Count 5.6 10^3/uL (4.8-10.8)
[2023-12-30 06:34] LABS: ALT (SGPT) 22 U/L (0-50); AST (SGOT) 23 U/L (17-59); Albumin 3.6 g/dl (3.5-5.0); Alkaline Phosphatase 68 U/L (38-126); Blood Urea Nitrogen 15 mg/dl (9-20); Calcium 9.2 mg/dl (8.4-10.2); Carbon Dioxide 25 mmol/L (22-30); Chloride 96 mmol/L (98-107); Estimated Creatinine Clearance 86 ml/min; Glucose 90 mg/dl (70-99); Magnesium 1.7 mg/dl (1.6-2.3); Potassium 4.2 mmol/L (3.5-5.1); Sodium 131 mmol/L (135-145); Total Bilirubin 0.7 mg/dl (0.2-1.3); Total Protein 6.1 g/dl (6.3-8.2); eGFR > 60.00
[2023-12-30] MEDS: NICODERM TRANSDERMAL 14 MG TRANSDERM (07:52)
[2023-12-30] MEDS: MIRALAX 17 GRAMS PO (07:52)
[2023-12-30] MEDS: ASPIR LOW (ENTERIC COATED) 81 MG PO (07:53)
[2023-12-30] MEDS: VITAMIN B1 100 MG PO (07:53)
[2023-12-30] MEDS: MAG-TAB SR 84 MG PO (07:53)
[2023-12-30] MEDS: COLACE 100 MG PO (07:53)
[2023-12-30] MEDS: SENOKOT 17.1999999999999993 MG PO (07:53)
[2023-12-30] MEDS: PLAVIX 75 MG PO (07:54)
[2023-12-30] MEDS: NEURONTIN 800 MG PO (07:54)
[2023-12-30] MEDS: KEFLEX 500 MG PO (07:54)
[2023-12-30] MEDS: LIPITOR 40 MG PO (07:55)
[2023-12-30] MEDS: FOLVITE 1 MG PO (07:55)
[2023-12-30] MEDS: LUMINAL 32.3999999999999986 MG PO ×2 (07:55→16:15)
[2023-12-30] MEDS: CYMBALTA DELAYED RELEASE 60 MG PO (07:56)
[2023-12-30 07:58] VITALS: BP 117/62
[2023-12-30] MEDS: LOPRESSOR 12.5 MG PO (11:25)
--- NOTE | 2023-12-30 11:28 | W.PN.HOSP.TC ---
Addendum entered and electronically signed by Sung Marks MD 12/30/23 12:31:
Discharge today only after patient gets his 4 pm Phenobarbital dose.
Original Note:
Today's Communication/Plan
-
Discharge today
Assessment / Plan
Assessment / Plan
Gen-AAOx3, NAD
HEENT-NC, AT, anicteric, clear oral mm
Neck-supple
CV-reg, no M, +S1/S2
Lungs-clear B/L
Abd-soft, NT, ND
Ext-no edema
Musculoskeletal-no cyanosis, clubbing, left lower extremity surgical wounds with bandages C/D/I
Skin-warm and dry
Neuro-grossly non-focal
Psych-calm, cooperative
58-year-old male here with fall and left tib-fib fracture. Orthopedic surgery repaired on Wednesday. Multiple stable medical issues including alcoholism, CAD, PAD, hypertension, neuropathy.
Acute traumatic left fibular/tubular fracture status post left tibia shaft fracture open reduction and internal fixation with intramedullary nail
- due to fall and underlying osteoporosis.
- TDWB to LLE
- PT/OT
- ASA 81 mg daily. Continue Plavix.
- Keflex 500mg BID x7 days postop (8 more doses left)
- Pain control per primary. Ice and elevation for pain and edema control.
- Continue to monitor Hgb
- Maintain surgical dressings until 2 weeks post-op. OK to reinforce or change as needed.
- The patient will follow up with orthopedics in 2 weeks for a xray check and wound check.
- Case management consult for discharge planning.
Alcohol use disorder with withdrawal
Severe alcohol use disorder -Daily drinker. Drinks about 8 beers and 2 glasses of wine per day. Last drink was 12/24/23 evening. High risk for alcohol withdrawal syndrome. Continue phenobarbital taper and lorazepam as needed. Thiamine and folic
acid. Follow alcohol withdrawal protocol -- will discharge with 2 more doses of Phenobarbital 32.4 mg (one to be taken at 10 pm tonight and next one to be taken tomorrow at 8 am; discussed this today with clinical pharmacist)
Acute blood loss anemia likely secondary to trauma and surgery -- continue to monitor CBC
Hyponatremia - 132. Urine osm 544 and urine sodium 142, and serum osm 275. Possible SIADH, should get further evaluation/workup outpatient, e.g. Thyroid Functions Tests. Nephrology follow-up outpatient. PO FR 40 ounces daily on discharge.
Osteoporosis - likely due to underlying alcoholism, tobacco dependence. Discussed with patient and sister to seek treatment as outpatient. Speak with primary care doctor. Highly recommend alcohol and tobacco cessation.
Hyperglycemia - Hemoglobin A1c 5.7% consistent with impaired fasting glucose.
CAD/CABG -stable. Denies exertional chest pain or shortness of breath.
Peripheral Artery Disease - with previous right lower extremity femoropopliteal bypass, left lower extremity stenting. Recommend outpatient follow-up with vascular surgery as he still gets claudication.
Essential hypertension -stable.
Hyperlipidemia -on atorvastatin.
Peripheral neuropathy
Patient will need a script for a rolling walker
Full code
More than 30 minutes spent in discharge including
Final examination of the patient
Summarizing hospital stay
Instructions for continuing care to all relevant caregivers
Preparation of discharge records, prescriptions, and referral forms
Total time spent (in minutes): 37
Anticipated Discharge: Today
Subjective/Interval History
-
Date of Service: December 30, 2023
Patient was seen and examined. He denied any new significant symptoms or complaints.
Objective Data
-
Labs:
Laboratory Results
12/30/23
05:19
WBC 5.6
Hgb 11.1 L
Hct 31.2 L
Plt Count 201 D
Sodium 131 L
Potassium 4.2
Chloride 96 L
Carbon Dioxide 25
BUN 15
Creatinine 0.8
Glucose 90
Calcium 9.2
Total Bilirubin 0.7
AST 23
ALT 22
Alkaline Phosphatase 68
Vital Signs:
Vital Signs
Temp Pulse Resp BP Pulse Ox
98.4 F 79 18 117/62 95
12/30/23 07:58 12/30/23 07:58 12/30/23 07:58 12/30/23 07:58 12/30/23 07:58
I&O
12/29/23 12/30/23 12/31/23
06:59 06:59 06:59
Intake Total 1080 / 1080 480 / 480
Output Total 3025 / 3025 300 / 300
Balance -1944 / -1944 180 / 180
[2023-12-30 11:51] VITALS: BP 125/80
--- NOTE | 2023-12-30 12:51 | CM ---
Addendum entered by Osiris Mclean 12/30/23 13:01:
[facility] will provide home health services for PT; liaison notified and acknowledged via tiger text
Original Note:
Case Management Consult completed: Met with patient at the bedside to discuss discharge plan; and offered Alcohol Counseling with [facility]. Patient refused; and stated that he has had discussions regarding alcohol counseling with a [employer] from
[facility]; and plan to follow up with them
PT provided patient with Rolling Walker. Attending will provide script as requested
Plan: Discharge to home today after 4 PM; sister will provide transport home
--- NOTE | 2023-12-30 13:27 | W.DS.TRANS ---
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
-
Discharge Instructions:
Discharge Diagnosis/Procedures Acute traumatic left fibular/tubular fracture
status post left tibia shaft fracture open
reduction and internal fixation with
intramedullary nail
Alcohol use disorder with withdrawal
Severe alcohol use disorder
Acute blood loss anemia likely secondary to
trauma and surgery
Hyponatremia
Osteoporosis
Hyperglycemia
CAD/CABG
Peripheral Artery Disease
Essential hypertension
Hyperlipidemia
Peripheral neuropathy
Diet As tolerated,Low Fat,Low Cholesterol,Diabetic,
Carb Controlled
Additional Diets Restrict PO fluids to 40 ounces daily due to
your hyponatremia
Activity Other activity
Additional Activity TDWB (Touch-Down Weight-Bearing) to LLE
Driving Restrictions Not until seen by your Dr
Blood Work Need re-check of CBC, CMP and Magnesium with
your primary care provider's office within 1
week.
Other Services VN
Instructions: Alcohol use - when is drinking a problem?
Alcohol withdrawal
Alcohol Use Disorder (DC)
Phenobarbital
Stand-Alone Forms:
Changes to Home Medications: Yes
Discharge Medications:
DC Medications w/original date entered in [facility] [employer]
aspirin 81 mg tablet,delayed release 81 mg PO DAILY 12/25/23
atorvastatin 40 mg tablet 40 mg PO DAILY 12/25/23
clopidogrel 75 mg tablet 75 mg PO DAILY 12/25/23
duloxetine 60 mg capsule,delayed release 60 mg PO DAILY 12/25/23
lorazepam 0.5 mg tablet 0.5 mg PO DAILY PRN anxiety 12/25/23
losartan 25 mg tablet 25 mg PO DAILY 12/25/23
magnesium oxide 400 mg (241.3 mg magnesium) tablet 400 mg PO DAILY 12/25/23
metoprolol succinate 25 mg tablet,extended release 24 hr 50 mg PO DAILY 12/25/23
cephalexin 500 mg capsule 500 mg PO BID #8 caps 12/30/23
docusate sodium 100 mg capsule 100 mg PO BID #60 caps 12/30/23
folic acid 1 mg tablet 1 mg PO DAILY #30 tabs 12/30/23
gabapentin 800 mg tablet 800 mg PO BID #0 tabs 12/30/23
nicotine 14 mg/24 hr daily transdermal patch 14 mg transdermal DAILY #28 ea 12/30/23
phenobarbital 32.4 mg tablet 32.4 mg PO DIRECTED #2 tabs 12/30/23
polyethylene glycol 3350 17 gram oral powder packet (HealthyLax) 17 g PO DAILY #30 ea 12/30/23
sennosides 8.6 mg tablet (Senna Laxative) 17.2 mg (2 x 8.6 mg) PO BID #30 tabs 12/30/23
thiamine HCl (vitamin B1) 100 mg tablet 100 mg PO BID #60 tabs 12/30/23
Home Medication Changes
Cephalexin, Folic Acid, Thiamine, Nicotine Patch, Phenobarbital, Docusate, HealthyLax and Senna Laxative are all new medications.
Gabapentin changed from 1600 mg daily to 800 mg BID.
Lorazepam 0.5 mg daily prn for anxiety held (to minimize risk of over-sedation while taking phenobarbital).
Losartan held until outpatient follow-up.
Pending Results: No
Total time spent discharging patient (in min): 37
[2023-12-30 15:41] VITALS: BP 111/68
[2023-12-30] MEDS: ROXICODONE 5 MG PO (16:15)
--- NOTE | 2024-01-02 12:01 | W.DCSUMMARY ---
Discharge Summary
Discharge Data
Date of Admission: 12/25/23
Date of Discharge: 12/30/23
Total time spent discharging patient (in min): 37
-
Pending Results: No
Hospital Course
58-year-old male with history of significant alcohol use, was drinking the night prior to presentation, fell into a trench about 1-1/2 feet deep and injured his left leg, when he came into the emergency room, he was found to have a left
tibial/fibular fracture. Patient was placed on alcohol withdrawal protocol and phenobarbital taper given high risk for alcohol withdrawal. Orthopedics was consulted and Dr. Jackson (orthopedic surgeon) recommended cefazolin for 24 hours for
perioperative infection prophylaxis followed by Keflex 500 mg twice daily for 7 days due to patient's known history of heavy smoking and high risk for infection. On 12/26/23, patient had a left tibia shaft fracture open reduction and internal
fixation with intramedullary nail for his left displaced tibia shaft fracture and distal fibula fracture. Case was discussed with orthopedics who recommended Aspirin and his Plavix for post-op DVT prophylaxis. Patient was doing well and was soon
stable for discharge.
Discharge Plan
-
Patient Disposition: Home with Home Care
Discharge Diagnosis/Procedures: Acute traumatic left fibular/tubular fracture status post left tibia shaft fracture open reduction and internal fixation with intramedullary nail
Alcohol use disorder with withdrawal
Severe alcohol use disorder
Acute blood loss anemia likely secondary to trauma and surgery
Hyponatremia
Osteoporosis
Hyperglycemia
CAD/CABG
Peripheral Artery Disease
Essential hypertension
Hyperlipidemia
Peripheral neuropathy
Condition: Good
Diet: As tolerated, Low Fat, Low Cholesterol and Diabetic, Carb Controlled
Additional Diets: Restrict PO fluids to 40 ounces daily due to your hyponatremia
Activity: Other activity
Additional Activity: TDWB (Touch-Down Weight-Bearing) to LLE
Driving Restrictions: Not until seen by your Dr
Blood Work: Need re-check of CBC, CMP and Magnesium with your primary care provider's office within 1 week.
Other Services: VN
Activity Restrictions/Additional Instructions:
TDWB (Touch-Down Weight-Bearing) to LLE. Ice and elevation for pain and edema control.
As per Dr. Victor Manuel Jackson (orthopedic surgeon): Your boot should stay on at all times except for getting dressed. The Aquacel and dressings above the boot should stay on but can get wet with soap and water. Maintain surgical dressings until 2 weeks
post-op. OK to reinforce or change as needed. Call Dr. Jackson's outpatient office with any questions about your dressing.
Follow-up with orthopedics Dr. Jackson in 2 weeks for an x-ray check and wound check.
Instructions: Alcohol use - when is drinking a problem?, Alcohol withdrawal, Alcohol Use Disorder (DC), Phenobarbital
Referrals:
Kyra Bragg CRNP [Family Provider] - in less than 1 week (Needs CBC, CMP and Magnesium check)
Daquan Emmanuel MD [Active] - in three to four weeks (Peripheral Artery Disease, claudication, previous right lower extremity femoro-popliteal bypass, left lower extremity stenting)
Victor Manuel Jackson MD [Active] - in two weeks (Hospital orthopedic surgery follow-up for incision check and X-rays)
Ana Laura Meyers MD [Active] - in one to two weeks (Hyponatremia -- hospital follow-up)
Additional Discharge Medication Instructions: Cephalexin, Folic Acid, Thiamine, Nicotine Patch, Phenobarbital, Docusate, HealthyLax and Senna Laxative are all new medications.
Gabapentin changed from 1600 mg daily to 800 mg BID.
Lorazepam 0.5 mg daily prn for anxiety held (to minimize risk of over-sedation while taking phenobarbital).
Losartan held until outpatient follow-up.
Prescriptions:
New
docusate sodium 100 mg Capsule
100 mg PO BID Qty: 60 0RF
folic acid 1 mg Tablet
1 mg PO DAILY Qty: 30 0RF
cephalexin 500 mg Capsule
500 mg PO BID Qty: 8 0RF
phenobarbital 32.4 mg Tablet
32.4 mg PO DIRECTED Qty: 2 0RF
Rx Instructions:
1st dose at 10 pm on 12/30/23, and 2nd dose at 8 am on 12/31/23.
polyethylene glycol 3350 [HealthyLax] 17 gram Powder In Packet
17 g PO DAILY Qty: 30 0RF
nicotine 14 mg/24 hr Patch 24 Hour
14 mg transdermal DAILY Qty: 28 0RF
sennosides [Senna Laxative] 8.6 mg Tablet
17.2 mg PO BID Qty: 30 0RF
thiamine HCl (vitamin B1) 100 mg Tablet
100 mg PO BID Qty: 60 0RF
Continued
atorvastatin 40 mg Tablet
40 mg PO DAILY
clopidogrel 75 mg Tablet
75 mg PO DAILY
aspirin 81 mg Tablet,Delayed Release (Dr/Ec)
81 mg PO DAILY
magnesium oxide 400 mg (241.3 mg magnesium) Tablet
400 mg PO DAILY
Patient Comments:
12/25/2023, prescribed for pt. to take 1 tab BID but pt. takes 1 tab Daily.
metoprolol succinate 25 mg Tablet Extended Release 24 Hr
50 mg PO DAILY
Patient Comments:
12/25/2023, prescribed for pt. to take 1 tab TID but pt. takes 2 tabs Daily.
duloxetine 60 mg capsule,delayed release(DR/EC)
60 mg PO DAILY
Changed
gabapentin 800 mg Tablet
800 mg PO BID Qty: 0 0RF
Patient Comments:
12/25/2023, prescribed for pt. to take 1 tab TID but pt. takes 2 tabs Daily.
Held
lorazepam 0.5 mg Tablet
0.5 mg PO DAILY PRN (Reason: anxiety)
Hold Instructions: Resume on 01/01/24.
losartan 25 mg Tablet
25 mg PO DAILY
Hold Instructions: Resume on 01/04/24. Review your medication list with your primary care provider and resume this medication when your primary care provider says it is okay to resume it.
Discharge Orders:
Discharge Patient (As Directed); Ordered 12/30/23
Ordered By: Sung Marks
Discharge Date and Time
Discharge Date/Time: 12/30/23 17:05
Print Language: ROMANSH
== END 2023-12-30 17:05 | disposition home health service (06) | DRG 493 ==
LOC: 4 WEST ACU 10:34
PROVIDERS: Student in an Organized Health Care Education/Training Program; ADMITTING PHYSICIAN Hospitalist; ATTENDING PHYSICIAN Hospitalist; CONSULT PHYSICIAN Orthopaedic Surgery; EMERGENCY PHYSICIAN Emergency Medicine; FAMILY PHYSICIAN Nurse Practitioner Primary Care
PROC: HZ2ZZZZ Detoxification Services for Substance Abuse Treatment (ICD-10-PCS; 2023-12-25)
PROC: 0QSH06Z Reposition Left Tibia with Intramedullary Internal Fixation Device, Open Approach (ICD-10-PCS; 2023-12-26)
DX: M80.062A Age-related osteoporosis with current pathological fracture, left lower leg, initial encounter for fracture (principal); D62 Acute posthemorrhagic anemia; E87.1 Hypo-osmolality and hyponatremia; F10.239 Alcohol dependence with withdrawal, unspecified; S82.301A Unspecified fracture of lower end of right tibia, initial encounter for closed fracture; S82.831A Other fracture of upper and lower end of right fibula, initial encounter for closed fracture; I73.9 Peripheral vascular disease, unspecified; I10 Essential (primary) hypertension; I95.9 Hypotension, unspecified; E78.5 Hyperlipidemia, unspecified; W19.XXXA Unspecified fall, initial encounter; G62.9 Polyneuropathy, unspecified; G89.29 Other chronic pain; I25.10 Atherosclerotic heart disease of native coronary artery without angina pectoris; F17.200 Nicotine dependence, unspecified, uncomplicated; M51.9 Unspecified thoracic, thoracolumbar and lumbosacral intervertebral disc disorder; R73.9 Hyperglycemia, unspecified; Z95.1 Presence of aortocoronary bypass graft; Z79.02 Long term (current) use of antithrombotics/antiplatelets; Z79.82 Long term (current) use of aspirin; Z79.899 Other long term (current) drug therapy
CPT/HCPCS: 29505; 73590; 76000; 80053; 80306; 80307; 81003; 82010; 82077; 82977; 83036; 83735; 83930; 83935; 84100; 84300; 85014; 85018; 85025; 85610; 85730; 86850; 86900; 86901; 93005; 96361; 96374; 96376; 97116; 97163; 97167; 97530; 97535; 99291; 99406

== ENCOUNTER 2024-01-18 12:23 | Inpatient (IN) | payer OTHER, SELFPAY ==
[2024-01-18] VITALS (12 sets, daily range): BP systolic 91–185; BP diastolic 75–110; BMI 23.2
--- NOTE | 2024-01-18 07:29 | ED.GENMED ---
Addendum entered and electronically signed by Luis E Jaeger DO 01/18/24 09:41:
Update patient seen by physical therapy
Sister now bedside she states patient cannot go home with her he has been staying with a friend, apparently using drugs and drinking on his pain meds patient's car has been impounded
Will check labs may need to be admitted
Original Note:
History of Present Illness
General
Chief Complaint: Post Operative Problem(s)
Source: patient and records
Exam Limitations: none
Time Seen by Provider: 01/18/24 07:14
Nursing documentation reviewed up to this point in time: agreed with
History of Present Illness
History of Present Illness:
59-year-old male status post operative repair of a left tib-fib fracture by Dr. Camarena few weeks ago presents with pain in his left lower extremity pain, no fevers no drainage, stitches are intact, no new trauma
Past History
Past History
ED Past Medical History: CAD, HTN, Hypercholesterolemia, Psychiatric and Other (Peripheral vascular disease, chronic bilateral leg pain/peripheral neuropathy, lumbar disc disease)
ED Past Surgical History: Cardiac (CABG 2021), Orthopedic and Other (Right femoropopliteal bypass, left lower extremity arterial stent)
Social History
Tobacco: Smoker
Alcohol: Daily
Drug: None
Personal: Single
Living: with roommate
Employment: Not employed
Family History
Family History: Other (Noncontributory)
Review of Systems
Review of Systems
All Other Systems: Not applicable
Constitutional: Denies fever or fatigue
EENT: Reports no symptoms
Respiratory: Reports no symptoms
Cardiac: Reports no symptoms
Musculoskeletal: Reports joint pain and muscle pain
Neurological: Reports no symptoms
Endocrine: Reports no symptoms
Phy Exam
Physical Exam
Physical Exam:
Physical Exam
General: Somewhat disheveled but cooperative 59 male
Neck: No jaundice
Heart: s1/s2 regular rate and rhythm, no murmur. equal radial pulses.
Lungs: no acute respiratory distress. clear bilaterally
Neuro: alert and oriented. no focal neurological deficits
Skin: no rash
Psychiatric: cooperative
Extremities: Left lower extremity warm, well-healed surgical scars, there is some bony prominence distal medial tibia
Course
Orders/Labs/Results
Orders:
Orders
01/18/24 07:29
Tib/Fib, Left 2 View [CR Leg Tibia/fibula Left 2 Vw] Urgent
Comment:
Reason For Exam: pain fx orif
01/18/24 07:31
Acetaminophen [Tylenol] 650 mg PO NOW STA
01/18/24 08:24
Case Management Consult ONCE
Case Management Consult: Advanced Directive
01/18/24 08:46
Physical Therapy Consult [Pt Eval And Treat] Urgent
Activity Level: Out of Bed-Early Mobility
01/18/24 08:49
Warm Handoff Consult ONCE
Patient agreeable to Warm Hand off: Yes
Call made to [phone]: Spoke with CRS
Vital Signs
Initial and Last Documented VS:
Initial Vital Signs
Temp Pulse Resp BP Pulse Ox
97.9 F 130 26 150/110 96
01/18/24 05:20 01/18/24 05:20 01/18/24 05:20 01/18/24 05:20 01/18/24 05:20
Last Documented Vital Signs
Temp Pulse Resp BP Pulse Ox
97.9 F 97 17 142/94 98
01/18/24 07:59 01/18/24 07:59 01/18/24 07:59 01/18/24 06:23 01/18/24 07:59
MDM/Problems Addressed
Differential Diagnosis Includes:
Postop pain, infection, postop healing, hardware migration,
MDM/Problems Addressed:
Leg pain
Acute Exacerbation and/or Progression of Chronic Illness:
Orthopedic surgery
*Critical Care Note
Total Time (30-74mins, 75-104mins- exclusive of procedures): Not Applicable
Update Note
Update Note:
Update, x-ray reviewed with his orthopedist fracture is moved, patient has been walking on , plan is for revision on , case management, [facility] physical therapy had seen the patient patient does feel okay going home
ED Attending Note
-
Portions of this chart may have been created with voice recognition software.� Occasional wrong word or��sound alike� substitutions may have occurred due to the inherent limitations of voice recognition software.
Discharge Plan
Departure
Patient Disposition: Home (Routine Discharge)
Date of Disposition: 01/18/24
Time of Disposition: 09:18
Patient with high blood pressure during this ER visit?: No
Condition: Good
Discharge Problem:
Left tibial fracture
Prescriptions:
No Action
atorvastatin 40 mg Tablet
40 mg PO DAILY
clopidogrel 75 mg Tablet
75 mg PO DAILY
aspirin 81 mg Tablet,Delayed Release (Dr/Ec)
81 mg PO DAILY
magnesium oxide 400 mg (241.3 mg magnesium) Tablet
400 mg PO DAILY
lorazepam 0.5 mg Tablet
0.5 mg PO DAILY PRN (Reason: anxiety)
Hold Instructions: Resume on 01/01/24.
losartan 25 mg Tablet
25 mg PO DAILY
Hold Instructions: Resume on 01/04/24. Review your medication list with your primary care provider and resume this medication when your primary care provider says it is okay to resume it.
metoprolol succinate 25 mg Tablet Extended Release 24 Hr
50 mg PO DAILY
Patient Comments:
12/25/2023, prescribed for pt. to take 1 tab TID but pt. takes 2 tabs Daily.
duloxetine 60 mg capsule,delayed release(DR/EC)
60 mg PO DAILY
folic acid 1 mg Tablet
1 mg PO DAILY Qty: 30 0RF
thiamine HCl (vitamin B1) 100 mg Tablet
100 mg PO BID Qty: 60 0RF
gabapentin 800 mg Tablet
800 mg PO BID Qty: 0 0RF
sennosides [Senna Laxative] 8.6 mg tablet
17.2 mg PO BIDPRN PRN (Reason: CONSTIPATION)
docusate sodium 100 mg capsule
100 mg PO BIDPRN PRN (Reason: CONSTIPATION)
oxycodone 5 mg Tablet
5 mg PO Q4HPRN PRN (Reason: severe pain)
Referrals:
UNKNOWN - PT DOES,NOT KNOW [Family Provider] -
Interventions
Interventions:
*Risk Screen - Suicide Last Done: 01/18/24 05:20
*General Assessment Last Done: 01/18/24 06:26
*Neglect/Abuse Screening Last Done: 01/18/24 05:20
ED- Fall Risk Assessment Last Done: 01/18/24 06:27
*ED COVID-19 Vaccine History Last Done: 01/18/24 06:26
ED- Cardiac Assessment Last Done: 01/18/24 06:27
ED- Neurological Assessment Last Done: 01/18/24 06:27
ED-Skin Assessment Last Done: 01/18/24 06:27
ED Swallowing Screen Last Done: 01/18/24 06:27
Discharge Date and Time
Print Language: SPANISH
[2024-01-18] MEDS: TYLENOL 650 MG PO ×4 (07:55→23:01)
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
[2024-01-18 10:39] LABS: % Basophils 1.2 % (0-2); % Immature Granulocytes 0.3 % (0-0.5); % Lymphocytes 24.5 % (20.5-51.1); % Monocytes 9.9 % (1.7-9.3); % Neutrophils 63.1 % (42.2-75.2); Absolute Basophils 0.1 10^3/uL (0-0.2); Absolute Eosinophils 0.1 10^3/uL (0-0.7); Absolute Lymphocytes 1.4 10^3/uL (1.2-3.4); Absolute Monocytes 0.6 10^3/uL (0.1-0.6); Absolute Neutrophils 3.7 10^3/uL (1.4-6.5); Hematocrit 35.4 % (39.0-52.0); Hemoglobin 12.5 g/dL (13.0-18.0); Mean Corp Hgb Conc. 35.3 g/dL (33.0-37.0); Mean Corpuscular Hgb 32.7 pg (27.0-31.0); Mean Corpuscular Volume 92.7 fL (80.0-94.0); Mean Platelet Volume 8.8 fL (7.4-10.4); Nucleated Red Blood Cells % 0 % (-); Platelet Count 267 10^3/uL (130-400); Red Blood Cell Count 3.82 10^6/uL (4.70-6.10); Red Cell Dist. Width 12.1 % (11.5-14.5); White Blood Cell Count 5.9 10^3/uL (4.8-10.8)
[2024-01-18 10:50] LABS: ALT (SGPT) 18 U/L (0-50); AST (SGOT) 26 U/L (17-59); Albumin 4.4 g/dl (3.5-5.0); Alkaline Phosphatase 88 U/L (38-126); Blood Urea Nitrogen 11 mg/dl (9-20); Calcium 9.4 mg/dl (8.4-10.2); Carbon Dioxide 25 mmol/L (22-30); Chloride 100 mmol/L (98-107); Estimated Creatinine Clearance 97 ml/min; Glucose 110 mg/dl (70-99); Potassium 4.6 mmol/L (3.5-5.1); Sodium 133 mmol/L (135-145); Total Bilirubin 0.6 mg/dl (0.2-1.3); eGFR > 60.00
[2024-01-18 10:51] LABS: Alcohol None Detected
[2024-01-18 11:28] LABS: Amphetamines Negative (Negative); Barbiturates Positive (Negative); Benzodiazepines Positive (Negative); Buprenorphine Negative (Negative); Cocaine Negative (Negative); Marijuana Positive (Negative); Methadone Negative (Negative); Methamphetamines Negative (Negative); Opiates Negative (Negative); Phencyclidine Negative (Negative); Tricyclic Antidepressants Negative (Negative)
--- NOTE | 2024-01-18 11:28 | HPS.HSE ---
Family Physician
-
Family Physician: NOT KNOW UNKNOWN - PT DOES
Chief Complaint
-
Left tib-fib fracture repair revision.
History of Present Illness
HPI: 58-year-old male PMH alcohol use disorder, CAD/CABG, PAD, HTN, HLD, Peripheral neuropathy, recent left tib-fib fracture; who is here for fracture repair revision.
He is lethargic, not able to provide history on admission. Some jittery movement, may be related to alcohol withdrawal.
Medical History
Past Medical History
Past Medical History: Reports Other
Additional Past Medical History:
CAD
PAD
Alcoholism
Essential hypertension
Hyperlipidemia
Peripheral neuropathy
Past Surgical History: Reports Other
Additional Past Surgical History:
CABG
Left thumb surgery
Right lower extremity femoropopliteal bypass
Left lower extremity stenting
Social History
Tobacco: Smoker
Alcohol: Daily
Personal: Single
Family History
Family History: Not pertinent
Allergies / Home Medications
Allergies reflects when Allergies were last updated in [employer].
Home Medications with original date entered in [employer]
Allergy/Medication List:
Allergies
Allergy/AdvReac Type Severity Reaction Status Date / Time
No Known Allergies Allergy Verified 01/18/24 05:24
Home Medications
aspirin 81 mg tablet,delayed release 81 mg PO DAILY Blood Clot Prevention/Tx 12/25/23
atorvastatin 40 mg tablet 40 mg PO DAILY High Cholesterol 12/25/23
clopidogrel 75 mg tablet 75 mg PO DAILY Blood Clot Prevention/Tx 12/25/23
duloxetine 60 mg capsule,delayed release 60 mg PO DAILY Depression 12/25/23
lorazepam 0.5 mg tablet 0.5 mg PO DAILY PRN anxiety 12/25/23
losartan 25 mg tablet 25 mg PO DAILY Blood Pressure 12/25/23
magnesium oxide 400 mg (241.3 mg magnesium) tablet 400 mg PO DAILY Supplement 12/25/23
metoprolol succinate 25 mg tablet,extended release 24 hr 50 mg PO DAILY Blood Pressure 12/25/23
docusate sodium 100 mg capsule 100 mg PO BIDPRN PRN CONSTIPATION 01/18/24
folic acid 1 mg tablet 1 mg PO DAILY Supplement 01/18/24
gabapentin 800 mg tablet 800 mg PO BID Pain 01/18/24
oxycodone 5 mg tablet 5 mg PO Q4HPRN PRN severe pain 01/18/24
oxycodone 5 mg tablet 5 mg PO Q8H PRN Pain #10 tabs 01/18/24
sennosides 8.6 mg tablet (Senna Laxative) 17.2 mg PO BIDPRN PRN CONSTIPATION 01/18/24
thiamine HCl (vitamin B1) 100 mg tablet 100 mg PO BID Supplement 01/18/24
Review of Systems
-
Unable to obtain full review of systems at this time due to: Other (lethargic)
Physical Exam
Vital Signs
Vital Signs
Temp Pulse Resp BP Pulse Ox
36.6 C 97 17 142/94 98
01/18/24 07:59 01/18/24 07:59 01/18/24 07:59 01/18/24 06:23 01/18/24 07:59
Physical Exam
General: Well Developed, Well Nourished, No Apparent Distress and Comfortable
HEENT: NormoCephalic, Moist mucous membranes and Atraumatic
Respiratory: Clear and Non Labored Respirations; No Accessory Resp Muscle Use
Cardiac: S1/S2 and Regular Rhythm; No Murmur or Rub
GI: Soft, Non Tender, Non Distended and Normal Bowel Sounds; No Organomegaly
Rectal: Deferred by Provider
Musculoskeletal: No Clubbing, No Cyanosis and No Edema
Skin: No Rash
Neuro: Other (arousable with verbal stimuli )
Psych: Calm
Laboratory Results
-
01/18/24 10:21
01/18/24 10:21
Laboratory Results
Total Bilirubin 0.6 mg/dl (0.2-1.3) 01/18/24 10:21
AST 26 U/L (17-59) 01/18/24 10:21
ALT 18 U/L (0-50) 01/18/24 10:21
Alkaline Phosphatase 88 U/L (38-126) 01/18/24 10:21
Data Reviewed
-
Lab Data: Labs Reviewed by me
Impression/Plan
-
HPI: 58-year-old male PMH alcohol use disorder, CAD/CABG, PAD, HTN, HLD, Peripheral neuropathy, recent left tib-fib fracture; who is here for fracture repair revision.
He is lethargic, not able to provide history on admission with some jittery movement, likely due to alcohol intoxication.
A/P
# Recent Acute traumatic left fibular/tubular fracture due to fall and underlying osteoporosis.
s/p Left tibia shaft fracture open reduction and internal fixation with intramedullary nail by Dr. Jackson 12/25
need revision of repair of fracture per ortho
Pt is within acceptable risk for low-mod risk procedure. Benefit of procedure outweighs risk.
# Severe alcohol use disorder
# Possible drug abuse
UDS positive for barbiturate, benzo, marijuana
Alcohol level negative on admission
Per previous record, pt also drinks alcohol daily (about 8 beers and 2 glasses of wine each day)
High risk for alcohol withdrawal syndrome- admit to IMU with MSAS protocol.
# Mild hyponatremia
# Osteoporosis likely due to underlying alcoholism
# CAD/CABG
# PAD with previous right lower extremity femoropopliteal bypass, left lower extremity stenting.
# Essential hypertension
# Hyperlipidemia
# Peripheral neuropathy
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
Full code
DVT ppx: SCD
[2024-01-18 11:45] LABS: Fentanyl, Urine Negative (Negative)
[2024-01-18] MEDS: ROXICODONE 5 MG PO ×2 (13:42→22:34)
--- NOTE | 2024-01-18 14:05 | PTCARENOTE ---
Patient received from ED. Patient was able to slide self to room bed. AAO although drowsy, VSS. MSAS upon arrival was 4, no intervention required at this time. MSAS explained to patient. Patients left leg in a surgical boot, surgical sites
visible and approximated with sutures intact. Pain level per patient at this time is 9/10, see MAR. Pack of cigarettes with boat oar maker noticed with patient, was asked politely if they could be placed them in a bag on the counter and patient was
agreeable. Oriented to room. Call chavez in reach.
--- NOTE | 2024-01-18 15:28 | W.PN.UPDATE ---
Addendum entered and electronically signed by Victor Manuel Jackson MD 01/19/24 07:44:
I evaluated the patient at bedside and agree with the above consult note. The patient is about 3 weeks after left distal tibia fracture ORIF with IM nail. He presented to the emergency department with altered mental status. He was noted on x-ray
to displacement of the fracture with backing of the proximal interlocking screw. There is valgus alignment of the distal tib-fib. On exam the patient has intact motor and sensation with improved swelling compared to postoperatively. There is a
small superficial abrasion. No deep wounds. Incisions appear well-healed. I discussed the findings with the patient. We discussed that given the present alignment of the fracture, this may compromise bony union and overall function. We
discussed nonoperative and operative treatments. Shared decision was to proceed with revision ORIF as well as distal fibula fracture ORIF. Timing will be based on his medical status. Plan for surgery tomorrow afternoon. All questions were
answered.
Original Note:
Update Note
Progress Note Update
59-year-old male significant past medical history of alcohol use disorder, peripheral arterial disease, CAD/CABG, peripheral neuropathy who is status post left tibial shaft intramedullary nail fixation [address] Jackson. He was noted
postoperatively at his first outpatient appointment on [address] Jackson to be noncompliant with his touchdown weightbearing/limited weightbearing status has been ambulating without his cam boot. Imaging at that time suggested some early
hardware failure secondary to noncompliance. He presented to the emergency room today due to increased pain and increasing deformity
Patient was noted to have slurred speech with history of alcohol abuse tox screen positive with multiple findings currently on IMU, presently admitted
Dressing was taken down to show valgus deformity at the left ankle. Nylon sutures are in place. There are some prominence of the medial malleolus underlying sutures in the presence of underlying hardware. There is no bleeding, skin is dry. He
has decreased sensation distally but consistent with his baseline. Motor function intact L5-S1. Lower extremities are warm and pink
Imaging: X-rays taken compared to previous fluoroscopic imaging showing backing out of his distal interlock screws of his intramedullary nail as well as new distal fibula fracture, fracture deformity with valgus angulation of his distal tibia.
Known and unchanged proximal fibula fracture
Imaging was shown and reviewed with the patient. Patient is recommended for revision surgery, left tibia revision intramedullary nail/open reduction internal fixation distal fibula ORIF with Dr. Jackson planned for 20 January 2024.
-Plan for OR 20 January 2024 pending medical clearance
-New dressing was applied, can maintain until date of surgery
-Nonweightbearing to left lower extremity
-DVT PPx Per primary
-N.p.o. orders placed for 20 January 2024, preoperative antibiotics ordered, consent obtained and placed in the chart
[2024-01-18] MEDS: ATIVAN 1 MG PO (15:45)
[2024-01-18] MEDS: THIAMINE INJECTION 200 MG IV ×2 (15:45→23:02)
[2024-01-18] MEDS: TYLENOL PO (16:00)
--- NOTE | 2024-01-18 20:04 | PTCARENOTE ---
Received pt from [facility]. Pt is AAOx3, drowsy @ times, MSAS (per protocol). NSR on the monitor. On RA O2 sat 99%, lungs clear. LLE dressing in place. Pt c/o pain, PRN pain medication given (see MAR). Left leg elevated to help with pain. Pt is
laying in bed with call chavez in reach.
[2024-01-18] MEDS: SENOKOT 17.2 MG PO (20:33)
[2024-01-18] MEDS: COLACE 100 MG PO (20:33)
[2024-01-18] MEDS: NEURONTIN 800 MG PO (20:33)
[2024-01-19] VITALS (15 sets, daily range): BP systolic 90–140; BP diastolic 70–103
[2024-01-19] MEDS: ROXICODONE 5 MG PO ×5 (02:53→20:53)
[2024-01-19] MEDS: TYLENOL 650 MG PO ×6 (02:54→23:03)
--- NOTE | 2024-01-19 07:29 | W.PN.HOSP.TC ---
Today's Communication/Plan
-
see A/P
Assessment / Plan
Assessment / Plan
HPI: 58-year-old male PMH alcohol use disorder, CAD/CABG, PAD, HTN, HLD, Peripheral neuropathy, recent left tib-fib fracture; who is here for fracture repair revision.
He is lethargic, not able to provide history on admission with some jittery movement, likely due to alcohol intoxication.
A/P
# Recent Acute traumatic left fibular/tubular fracture due to fall and underlying osteoporosis.
s/p Left tibia shaft fracture open reduction and internal fixation with intramedullary nail by Dr. Jackson 12/25
need revision of repair of fracture per ortho, procedure planned for 01/19
Pt is within acceptable risk for low-mod risk procedure. Benefit of procedure outweighs risk.
# Severe alcohol use disorder
# Possible drug abuse
UDS positive for barbiturate, benzo, marijuana
Alcohol level negative on admission
Per previous record, pt also drinks alcohol daily (about 8 beers and 2 glasses of wine each day)
High risk for alcohol withdrawal syndrome
Cont IMU level of care with MSAS protocol.
# Mild hyponatremia
# Osteoporosis likely due to underlying alcoholism
# CAD/CABG
# PAD with previous right lower extremity femoropopliteal bypass, left lower extremity stenting.
# Essential hypertension
# Hyperlipidemia
# Peripheral neuropathy
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
Full code
DVT ppx: SCD
DW RN
Anticipated Discharge: > 48 hours
Subjective/Interval History
-
Date of Service: January 19, 2024
Objective Data
-
Vital Signs:
Vital Signs
Temp Pulse Resp BP Pulse Ox
36.4 C 68 13 111/81 97
01/19/24 03:52 01/19/24 05:00 01/19/24 05:00 01/19/24 05:00 01/19/24 04:00
I&O
01/18/24 01/19/24 01/20/24
06:59 06:59 06:59
Intake Total 650 / 650
Output Total 950 / 950
Balance -300 / -300
Review of Systems
-
Musculoskeletal: Reports Joint Pain (L leg/ankle pain)
Physical Exam
-
General: Well Developed, Well Nourished, No Apparent Distress, Comfortable and Conversant; Negative Respiratory Distress
HEENT: Normocephalic, Atraumatic, Nose Appears Normal and Ears Appear Normal; Negative Oxygen
Respiratory: Clear to Auscultation and Non Labored Respirations; Negative Accessory Resp Muscle Use
Cardiac: Regular Rhythm and S1/S2
GI: Soft, Nontender, Nondistended and Normal Bowel Sounds
Skin: Warm and Dry
Neuro: Awake, Alert and Oriented
Psych: Calm and Intact Judgement/Insight
Data Reviewed
-
Labs: Labs Reviewed by me
[2024-01-19] MEDS: COLACE 100 MG PO ×2 (07:49→19:45)
[2024-01-19] MEDS: SENOKOT 17.2 MG PO ×2 (07:49→19:45)
[2024-01-19] MEDS: CYMBALTA DELAYED RELEASE 60 MG PO (07:50)
[2024-01-19] MEDS: FOLVITE 1 MG PO (07:50)
[2024-01-19] MEDS: COZAAR 25 MG PO (07:50)
[2024-01-19] MEDS: ASPIR LOW (ENTERIC COATED) 81 MG PO (07:51)
[2024-01-19] MEDS: NEURONTIN 800 MG PO ×2 (07:51→19:45)
[2024-01-19] MEDS: THIAMINE INJECTION 200 MG IV ×3 (07:52→23:04)
[2024-01-19] MEDS: TOPROL XL 50 MG PO (10:31)
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
--- NOTE | 2024-01-19 13:11 | W.PN.UPDATE ---
Update Note
Progress Note Update
The patient's sister requested to Victor Manuel Jeronimo RN and we speak. She reports that her brother has been having a difficult time with falls likely due to drinking alcohol. She is hoping to have him be discharged to a detention facility we can
have more supervision. We discussed postoperative immobilization and she discussed that the patient was not using the boot while weightbearing. We discussed concerns about using a cast postoperatively due to swelling. If he is at the rehab
facility then hopefully he will be more compliant with the boot which can be adjusted based on his level of swelling. All questions were answered.
--- NOTE | 2024-01-19 14:29 | PTCARENOTE ---
Assumed care of patient this morning. He c/o pain to his LLE, about 8-9/10. Reports it is throbbing and waxes and wanes with intensity. Pt was able to walk with a walker into the bathroom, hoping on his R leg only. Pt is nonweight bearing to his L
leg. All sutures from previous surgery are intact and dressing to lower leg is intact. Assessment, care and VS as charted.
--- NOTE | 2024-01-19 20:50 | PTCARENOTE ---
Pt c/o 03/21 left leg/ankle pain, PRN pain medication given (see MAR). MSAS per protocol Q4. Pt is laying in bed with call chavez in reach.
[2024-01-20] VITALS (15 sets, daily range): BP systolic 94–174; BP diastolic 57–98
[2024-01-20] MEDS: ROXICODONE 5 MG PO ×2 (01:03→05:10)
[2024-01-20] MEDS: TYLENOL 650 MG PO ×5 (04:11→23:32)
[2024-01-20 04:23] LABS: Hematocrit 40.8 % (39.0-52.0); Hemoglobin 14.3 g/dL (13.0-18.0); Mean Corpuscular Hgb 32.9 pg (27.0-31.0); Mean Corpuscular Volume 93.8 fL (80.0-94.0); Mean Platelet Volume 9.1 fL (7.4-10.4); Platelet Count 252 10^3/uL (130-400); Red Blood Cell Count 4.35 10^6/uL (4.70-6.10); White Blood Cell Count 5.8 10^3/uL (4.8-10.8)
[2024-01-20 04:49] LABS: Blood Urea Nitrogen 17 mg/dl (9-20); Calcium 9.7 mg/dl (8.4-10.2); Carbon Dioxide 28 mmol/L (22-30); Chloride 100 mmol/L (98-107); Estimated Creatinine Clearance 76 ml/min; Glucose 95 mg/dl (70-99); Sodium 136 mmol/L (135-145); eGFR > 60.00
--- NOTE | 2024-01-20 07:42 | W.PN.UPDATE ---
Update Note
Progress Note Update
Patient is on schedule for revision left tibial nail/ORIF left distal fibular fracture. He will remain n.p.o. for now and elevate to control swelling and pain. Unfortunately he is not tolerating ice because it causes too much pain. His nurse said
that he is taking oxycodone and it is not addressing his pain. I will switch him to Dilaudid. OR consent is on chart.
--- NOTE | 2024-01-20 07:52 | W.PN.HOSP.TC ---
Today's Communication/Plan
-
see A/P
Assessment / Plan
Assessment / Plan
HPI: 58-year-old male PMH alcohol use disorder, CAD/CABG, PAD, HTN, HLD, Peripheral neuropathy, recent left tib-fib fracture; who is here for fracture repair revision.
He is lethargic, not able to provide history on admission with some jittery movement, likely due to alcohol intoxication.
A/P
# Recent Acute traumatic left fibular/tubular fracture due to fall and underlying osteoporosis.
# s/p Left tibia shaft fracture open reduction and internal fixation with intramedullary nail by Dr. Jackson 12/25
need revision of left tibial nail/ORIF of left distal fibular fracture, planned for 01/19
Pain control with PO oxycodone, IV Dilaudid PRN
Pt is within acceptable risk for low-mod risk procedure. Benefit of procedure outweighs risk.
# Severe alcohol use disorder
# Possible drug abuse
UDS positive for barbiturate, benzo, marijuana
Alcohol level negative on admission
Per previous record, pt also drinks alcohol daily (about 8 beers and 2 glasses of wine each day)
High risk for alcohol withdrawal syndrome
Cont IMU level of care with MSAS protocol.
# Mild hyponatremia, resolved
# Osteoporosis likely due to underlying alcoholism
# CAD/CABG
# PAD with previous right lower extremity femoropopliteal bypass, left lower extremity stenting.
# Essential hypertension
# Hyperlipidemia
# Peripheral neuropathy
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
Full code
DVT ppx: SCD
Anticipated Discharge: 24 - 48 hours
Subjective/Interval History
-
Date of Service: January 20, 2024
Objective Data
-
Labs:
Laboratory Results
01/20/24
04:12
WBC 5.8
Hgb 14.3
Hct 40.8
Plt Count 252
Sodium 136
Potassium 5.0
Chloride 100
Carbon Dioxide 28
BUN 17
Creatinine 0.9
Glucose 95
Calcium 9.7
Vital Signs:
Vital Signs
Temp Pulse Resp BP Pulse Ox
36.4 C 59 14 94/57 97
01/20/24 06:46 01/20/24 06:03 01/20/24 06:03 01/20/24 06:03 01/19/24 19:49
I&O
01/19/24 01/20/24 01/21/24
06:59 06:59 06:59
Intake Total 650 / 650 1310 / 1310
Output Total 950 / 950 1450 / 1450
Balance -300 / -300 -140 / -140
Review of Systems
-
Musculoskeletal: Reports Joint Pain (L leg/ankle pain)
Physical Exam
-
General: Well Developed, Well Nourished, No Apparent Distress, Comfortable and Conversant; Negative Respiratory Distress
HEENT: Normocephalic, Atraumatic, Nose Appears Normal and Ears Appear Normal; Negative Oxygen
Respiratory: Clear to Auscultation and Non Labored Respirations; Negative Accessory Resp Muscle Use
Cardiac: Regular Rhythm and S1/S2
GI: Soft, Nontender, Nondistended and Normal Bowel Sounds
Skin: Warm and Dry
Neuro: Awake, Alert and Oriented
Psych: Calm and Intact Judgement/Insight
Data Reviewed
-
Labs: Labs Reviewed by me
--- NOTE | 2024-01-20 07:55 | PTCARENOTE ---
Orthopedic PA, Alessandro Rivero, at bedside this morning. Patient reported to PA that his pain was uncontrolled and asked the PA if he could do 'anything more' for the pain. Order for Dilaudid IV, see MAR.
[2024-01-20] MEDS: DILAUDID 0.5 MG IV ×4 (09:00→23:32)
[2024-01-20] MEDS: CYMBALTA DELAYED RELEASE 60 MG PO (09:04)
[2024-01-20] MEDS: NEURONTIN 800 MG PO ×2 (09:04→20:29)
[2024-01-20] MEDS: SENOKOT 17.2 MG PO ×2 (09:04→20:29)
[2024-01-20] MEDS: TOPROL XL 50 MG PO (09:05)
[2024-01-20] MEDS: FOLVITE 1 MG PO (09:05)
[2024-01-20] MEDS: COZAAR 25 MG PO (09:05)
[2024-01-20] MEDS: COLACE 100 MG PO ×2 (09:05→20:29)
[2024-01-20] MEDS: ASPIR LOW (ENTERIC COATED) 81 MG PO (09:06)
[2024-01-20] MEDS: THIAMINE INJECTION 200 MG IV ×2 (09:06→23:33)
--- NOTE | 2024-01-20 14:19 | PTCARENOTE ---
Patient reports pain has been well controlled since pain medication this morning. Pt also taking scheduled Tylenol.
[2024-01-20] MEDS: TYLENOL PO (15:23)
[2024-01-20] MEDS: THIAMINE INJECTION IV (15:23)
--- NOTE | 2024-01-20 16:26 | CM ---
Patient with Dx Recent Acute traumatic left fibular/tubular Fx s/p ORIF with nail, Severe alcohol use disorder, Possible drug abuse. Plan OR today for revision left tibial nail/ORIF left distal fibular fracture. Room air. Tox Screen noted.
Receiving IV Dilaudid, Roxicodone prn.
Received callback from Floresita Samayoa [employer] B[employer] Mechanic (ph [phone]); patient is seen by Collin Schwartz at [facility] for medication management. His diagnoses are major depressive disorder, generalized anxiety disorder and Etoh abuse disorder.
Kayla had been assisting patient with housing in the past, and drug/alcohol. She was made aware patient may need to go to SNF for medical rehab vs Inpatient Drug/Etoh rehab at discharge.
Spoke with ABI Laughlin; provided update re; report from Floresita ARGUETA.
Plan follow up after seen by PT/OT post op.
--- NOTE | 2024-01-20 19:00 | W.PN.UPDATE ---
Update Note
Progress Note Update
Patient seen this a.m.; reports continued pain likely vascular in etiology post CTA and recommended for vascular operative intervention.
-Patient reported his frustration with his original surgeries done at [facility] being unsuccessful
-Patient was able demonstrate motor function intact distally, compartments of the foot are soft and compressible
-Patient was encouraged to remain n.p.o.; he agreed at this timeframe. Pending intervention with vascular.
-Nonweightbearing to left lower extremity. After completion of postoperative Ancef bridged to 7 days of 500 mg Keflex twice daily
-DVT PPx per primary, ASA unless recommended otherwise
-Pain not well-controlled at this timeframe likely secondary to vascular pathology
-N.p.o. for the time being for vascular intervention
--- NOTE | 2024-01-20 19:23 | OR.RPT ---
Operative Report
Operative Report
Orthopedic Surgery Operative Note
Date of Operation: 01/20/2024
Preoperative Diagnosis: Left displaced tibia shaft fracture with hardware failure; distal fibula fracture
Postoperative Diagnosis: Same
Operation Performed:
1) Left tibia shaft fracture revision open reduction and internal fixation with intramedullary nail (92653 with 22 modifer for complexity)
2) Distal fibula fracture ORIF (08027)
Surgeon: Victor Manuel Jackson MD
Assistants: Farhat Mckenna PA-C who helped with retraction and positioning
Anesthesia: General
Complications: None
Estimated Blood Loss: 100mL
Implants:
Roland T2 tibial nail, 10mm x 315mm
5.0mm advanced locking screws proximal and distal
Roland 1/3 tubular plate with locking and nonlocking screws
Tourniquet Time: NA
Indications for Procedure:
59-year-old male 3 and half weeks after left tibia shaft fracture ORIF by me. He was instructed for touch down weight bearing in the CAM boot. He presented to the emergency department with altered mental status and was noted to have valgus shift in
the fracture as well as backing out of the proximal-most distal interlocking screw. The patient was noted to have had a number of falls possibly due to intoxication and had been full weightbearing on the left leg without the cam boot. He was
evaluated by the medical team and admitted for withdrawal symptoms. I discussed with the patient and his sister the radiographic findings. We discussed the concern about nonunion and malunion in light of fracture displacement. We discussed
nonoperative and operative treatments including revision ORIF. He had a distal fibular fracture which was being treated nonoperatively. There is a displaced with the displacement of his tibia fracture we discussed ORIF of the distal fibula to
improve overall stability in the lower limb. Shared decision was to proceed with surgical treatment. The patient understood the risks including, but not limited to, bleeding, infection, failure to relieve pain, more pain than preop, damage to blood
vessels and nerves, need for reoperation, mechanical failure of the implants, wound healing problems, stiffness, instability, blood clot, pulmonary embolism, myocardial infarction, pneumonia, arrhythmia, CVA and . The patient accepted these
risks and wished to proceed with surgery. All questions were answered and informed consent was obtained.
Procedure in General:
The patient was identified in the preoperative holding area. The left limb was identified as the operative site and marked for safety. The patient was brought to the operating room and transferred to the operative table. General anesthesia was
performed. Ancef was administered prior to incision. All bony prominences were well padded. A bump was placed under the ipsilateral hip. The operative limb was prepped and draped in the usual sterile fashion.
The prior incisions were identified. The distal interlocking screws were removed. Under fluoroscopic guidance, attempt was made to reduced the distal tibia fracture. With the nail in place, this was not possible. Decision was made to remove the
nail. The proximal interlocking screw was removed. 1 screw was left in place. The suprapatellar incision was reaccessed and dissection was carried down to the quadricep tendon. The quadriceps tendon was split in line with its fibers and the
joint was accessed. The soft tissue protector was inserted down to the proximal aspect of the tibial nail. A ball-tipped guidewire was passed through this tissue protector into the top of the nail. The tibial nail removal device was screwed onto
the top of the nail. Once this was well-fixed, the second proximal interlocking screw was removed. The nail was removed without incident. With the nail removed, fluoroscopy was used to reduce the distal fibular fracture. Once the tibia was
reduced, the ball-tipped guidewire was passed to the distalmost extent of the distal fibula. This positioning was checked on fluoroscopy. An 11.5 mm reamer was used to ream down to the ball-tipped guidewire. This had good chatter. Length was
checked and the 315 mm nail length was determined to be appropriate. The nail was inserted with the fracture reduced. Once in place, proximal interlocking screws were placed medial to lateral through the jig. Distal interlocking screws were
placed medial to lateral and anterior to posterior using perfect pa[place]-shoshone technique. For the A to P screw, the skin was incised and blunt dissectionw as carried down to bone with a freer to avoid injury to neurovascular structures. A tissue guide was
used for drilling. Final fluoroscopy shots confirmed anatomic reduction and appropriate screw length and hardware position.
Attention was turned to the distal fibula. Fluoroscopy was used to identify the fracture site as well as the length of the incision. Dissection was carried through skin. Dissection was carried down to bone distally and blunt dissection was used
to access the more proximal aspect of the fibula. The SPN was not identified during the dissection. The fracture site was identified and reduced with traction and internal rotation. A one third tubular plate was selected. A distal fibular
locking plate was also assessed but this was too bulky for the soft tissue. The one third tubular plate was placed in the plate hide and balance was checked on fluoroscopy. The pin was provisionally pinned in place with K wires. Nonlocking screws
were placed proximally in the plate. 2 locking screws were placed distally in the distal fibula. Nonlocking screws contoured the plate to bone appropriately to act as a buttress. The ankle was stressed and there was no medial widening.
The wounds were irrigated copiously with saline. The deep tissue about the knee was closed with 0 Vicryl. The deep dermal and superficial layers were closed with 2-0 vicryl and 3-0 nylon. The distal fibula incision was closed with 2-0 PDS in running
fashion and 3-0 nylon in mattris fashion. The interlocking incisions were closed with 2-0 vicryl and mattress 3-0 nylon sutures. Sterile dressings were applied. A short leg splint was applied. Of note, once the incisions were closed, radiology made
note that the most proximal fibula screw was in bone but not in the plate. Decision was made not to reopen the incision given the length of the case, status of the soft tissues, and that the two other proximal screws had excellent purchase.
The patient awoke from anesthesia without any difficulties. The sponge and instrument counts were correct at the end of the case. I was present and participated in the entire procedure.
Of note, 22 modifier was added for complexity due to the revision nature of the ORIF with added about 30 additional minutes for prior hardware removal, reduction of the fracture, and use of additional fixation.
Post Operative Plan:
- Pain control
- PT/OT
- Ancef 24 hours with 7 days duricef PO
- DVT prophylaxis: ASA 325mg daily x4 weeks
- WB Status: NWB LLE
- Neurovascular checks
- The patient will follow up in 3 weeks for a xray check and wound check
Diego Jackson MD
--- NOTE | 2024-01-20 19:33 | CON.ORTHO ---
Consultation
-
Date/Time Consultation Requested: 01/18/2024 0806
Date/Time Consultation Performed: 01/19/2024 0700
Requesting Provider: Luis E Jaeger
Performing Provider: Diego Jackson
Reason for Consultation: Left leg pain
Consultation - Orthopedics
History
Orthopedic Surgery Note
CC: Left leg pain
HPI: 59-year-old male who underwent left tibia shaft fracture ORIF with me about 3 weeks ago 12/26/2023. He presented to the ER with altered mental status and left leg pain. He reports consuming alcohol and having some falls. He was seen by me in
the office. Been noted to have some small displacement of the fracture. He had been instructed to be touchdown weightbearing postoperatively with use of a cam boot. The patient reports he may have been more active on the leg. No new distal
numbness or tingling.
PMH/PSH: CAD/CABG, PAD, HTN, peripheral neuropathy, h/o left tibia shaft fracture, h/o etoh abuse, depression, FUENTES
Medications: reviewed
Family History: Family history was reviewed. Noncontributory
Social history: recent smoker (quit last hospital admission 3 weeks ago
Exam
General appearance: Pleasant. No acute distress. Mental status improved
Head: Normocephalic/atraumatic
Nose: No lesions or discharge.
Skin: No obvious rashes or open wounds
Lungs: No audible wheezing, no cough or sputum production
Musculoskeletal:
LLE:
blistering of pretibial skin, no open wounds
valgus alignment to distal tibia
healed incision sites
bruising about skin and toes
fires ehl/fhl/ta/gs - weak due to pain
sensation intact to light touch distally s/s/sp/dp/t
Toes wwp
Imaging:
Left tibia x-rays performed 01/18/2024 in the emergency department reviewed which showed interval displacement of the fracture and backing out of the proximalmost distal locking screw. There is valgus alignment of the fracture. There is displacement
of the distal fibula fracture.
Assessment and plan: I discussed with the patient and his sister about the findings. We discussed continuing nonoperative treatment. We discussed the concern that given displacement for nonunion or malunion. We discussed surgical treatment
options. He is being admitted for altered mental status. We discussed revision ORIF once he is medically stable. All questions were answered.
Diego Jackson MD
> 75 minutes was spent reviewing the clinical information, evaluating the patient, and formulating clinical plan.
Allergies / Home Medications
Allergy/AdvReac Type Severity Reaction Status Date / Time
No Known Allergies Allergy Verified 01/18/24 05:24
�Medication �Instructions �Recorded
aspirin 81 mg tablet,delayed 81 mg PO DAILY Blood Clot 12/25/23
release Prevention/Tx
atorvastatin 40 mg tablet 40 mg PO DAILY High Cholesterol 12/25/23
clopidogrel 75 mg tablet 75 mg PO DAILY Blood Clot 12/25/23
Prevention/Tx
duloxetine 60 mg capsule,delayed 60 mg PO DAILY Depression 12/25/23
release
lorazepam 0.5 mg tablet 0.5 mg PO DAILY PRN anxiety 12/25/23
losartan 25 mg tablet 25 mg PO DAILY Blood Pressure 12/25/23
magnesium oxide 400 mg (241.3 mg 400 mg PO DAILY Supplement 12/25/23
magnesium) tablet
metoprolol succinate 25 mg 50 mg PO DAILY Blood Pressure 12/25/23
tablet,extended release 24 hr
docusate sodium 100 mg capsule 100 mg PO BIDPRN PRN CONSTIPATION 01/18/24
folic acid 1 mg tablet 1 mg PO DAILY Supplement 01/18/24
gabapentin 800 mg tablet 800 mg PO BID Pain 01/18/24
oxycodone 5 mg tablet 5 mg PO Q4HPRN PRN severe pain 01/18/24
oxycodone 5 mg tablet 5 mg PO Q8H PRN Pain #10 tabs 01/18/24
sennosides 8.6 mg tablet (Senna 17.2 mg PO BIDPRN PRN CONSTIPATION 01/18/24
Laxative)
thiamine HCl (vitamin B1) 100 mg 100 mg PO BID Supplement 01/18/24
tablet
Vital Signs / Lab Results
Temp Pulse Resp BP Pulse Ox
97.7 F 80 11 152/86 98
01/20/24 19:00 01/20/24 19:30 01/20/24 19:30 01/20/24 19:30 01/20/24 19:30
01/20/24 04:12
01/20/24 04:12
[2024-01-20] MEDS: DILAUDID 0.25 MG IV (19:34)
--- NOTE | 2024-01-20 20:30 | PTCARENOTE ---
Addendum entered by Lisha Pena RN 01/21/24 03:34:
at 23:30 Pts pain reassed at 23:30, pt c/o 10/10 of left lower extreamity in location of surgical site. Pt given 2nd dose of ordered 0.5 q3 prn Dilaudid.
then at 23:55 Neurovascular checks reassed, assessment remains unchanged from previous check. See Q4 neurovascular check intervention documentation. at 01:00 P/t continues to c/o of 10/10 pain. FROG OR OYSTER FARMWORKER notified of pain rating and neurovascular
assessment. unable to give dose of Dilaudid until 02:30. at 01:40 FROG OR OYSTER FARMWORKER placed one time order for 1mg of Dilaudid, this RN administered dose. Pt states the pain med di not effect his pain at all. This RN reassessed neurovascular checks, which where
unchanged from previous assessment, however pt c/o tingling as well. This Rn was able to push back casting to attempt to assess pedal pulses, pedal pules could not be palpated or found via Doppler. FROG OR OYSTER FARMWORKER notified, FROG OR OYSTER FARMWORKER to floor to assess.
Original Note:
Pt received from PACU. Q4 neurovascular checks ordered. First check done at bedside with ABSTRACT SEARCHER, Pt surgical site casted so that just his toes are exposed and up until just below the knee. Due to this pedal pulse was unable to be assessed due to
inability to reach it under the casting. Femoral pulse was normal upon palpation and popliteal pulse was present With use of a Doppler. Toes were assessed and found to be dusky, cool, with cap refill greater than 2 seconds. Pt informed nurse he 'was
wondering how long his toes would be like that', this RN questioned as to when he noticed the 'bruising or duskiness' of his toes and Pt stated toes have been like that since pre op. Pt remains to have sensation in the toes and can wiggle them. This
assessment is consistent with that of which was done by ABSTRACT SEARCHER post op. Pt c/o 10/10 pain and given ordered 0.5 q3 prn dilaudid. Left lower extremity elevated with two pillow.
[2024-01-20] MEDS: ANCEF 5 IV (22:46)
[2024-01-21] VITALS (25 sets, daily range): BP systolic 60–166; BP diastolic 46–94
[2024-01-21] MEDS: DILAUDID 1 MG IV (01:57)
[2024-01-21] MEDS: DILAUDID 0.5 MG IV ×6 (02:58→20:17)
[2024-01-21 04:27] LABS: Hematocrit 35.5 % (39.0-52.0); Hemoglobin 12.6 g/dL (13.0-18.0); Mean Corp Hgb Conc. 35.5 g/dL (33.0-37.0); Mean Corpuscular Hgb 33.5 pg (27.0-31.0); Mean Corpuscular Volume 94.4 fL (80.0-94.0); Mean Platelet Volume 9.2 fL (7.4-10.4); Platelet Count 243 10^3/uL (130-400); Red Blood Cell Count 3.76 10^6/uL (4.70-6.10); Red Cell Dist. Width 11.9 % (11.5-14.5); White Blood Cell Count 9.2 10^3/uL (4.8-10.8)
[2024-01-21 04:53] LABS: Blood Urea Nitrogen 17 mg/dl (9-20); Carbon Dioxide 25 mmol/L (22-30); Chloride 97 mmol/L (98-107); Estimated Creatinine Clearance 76 ml/min; Glucose 108 mg/dl (70-99); Potassium 4.6 mmol/L (3.5-5.1); Sodium 133 mmol/L (135-145); eGFR > 60.00
[2024-01-21] MEDS: TYLENOL 650 MG PO ×5 (04:56→19:36)
--- NOTE | 2024-01-21 05:09 | W.PN.UPDATE ---
Update Note
Progress Note Update
Nursing made me aware of inability to obtain pedal pulse by palpation and by doppler after multiple attempts. Patient c/o extreme 'top of the foot' pain which he hasn't experienced before. We took down the dressing to expose more area to explore
with the doppler to no avail. Foot is cool and pale with dusky toes but patient notes it doesn't look much different than it always has. Upper leg above dressing is warm. Orthopedic service aware, Vascular service notified CTA aorta with run off
ordered. Vascular records requested to be obtained from [facility].
[2024-01-21] MEDS: ANCEF 5 IV (05:39)
--- NOTE | 2024-01-21 08:15 | W.PN.UPDATE ---
Update Note
Progress Note Update
59-year-old male I saw urgently this a.m. about an hour and a half ago. Full consultation to follow. My partner who is on-call overnight was asked by the orthopedic service/overnight nurse practitioner to evaluate for left foot pain concerning to
be vascular in nature. Patient had suffered a fracture to his left calf and underwent reduction. Subsequently was ambulating and from what I gather had a repeat fracture or issue and underwent revision surgery yesterday. Patient is complaining of
significant pain on the dorsum of his left foot now. When I asked him about the pain he notes that he is actually had this pain from the mid to distal calf all the way onto the foot. It is not only on the foot. And it has been present even prior
to this surgery, ever since his last surgery he notes. However it is definitively worse following this most recent surgery yesterday. He notes that the pain seems worse when his leg is elevated and then he intentionally hangs his leg down and that
alleviates the pain. He offered this information before I even asked him. He notes that he has had significant vascular issues, workup at [facility] prior for claudication resulted in eventual right-sided lower extremity bypass and
left-sided endovascular intervention. He notes that these interventions fail to relieve any of his claudication. However he did not prior to his fracture in the leg have any ischemic rest pain symptoms. Denies any tissue loss. Denies any
weakness in the foot. No numbness in the foot currently. Significant cardiovascular risk factors. Has a history of coronary artery bypass grafting. He also has a history of tobacco use a pack a day for 40 years. On exam/she is awake and alert.
Head is normocephalic and atraumatic. Eyes are anicteric. Neck is soft without jugular venous distention. Breathing is unlabored. Abdomen is soft, nondistended, nontender. Palpable femoral pulses, right side 1+/2+, left side 1+. Right foot
with dopplerable DP signal. Foot is warm and pink. Left foot and ankle are heavily bandaged and boot/splint in place. Toes slightly ecchymotic in nature and he is noted that they have been like that since his initial fracture. However he does
have what appears to be elevation pallor and dependent rubor. Motor and sensory function fully intact.
CT angiogram reviewed. He has heavily calcified distal infrarenal aorta and iliac arteries but no severe stenosis. Right common femoral artery with mild stenosis and then he has a bypass graft that emanates. Profunda with moderate calcific plaque
and stenosis. Prosthetic bypass graft is patent to the above-knee popliteal artery, however there is significant plaque, likely stenosis in the behind the knee popliteal artery distal to the bypass graft distal anastomosis. Runoff difficult to
tell as the vessels are calcified so it is hard to say what is opacifying and what is calcific plaque. On the left side he has significant common femoral artery plaque that results in at least moderate stenosis. (Likely about 50% at least).
Profunda is diffusely diseased with areas of heavy plaque and stenoses, but the origin is reasonably patent. SFA beyond the origin has heavy plaque and stenosis about 3 to 4 cm beyond the origin and then diffusely calcified throughout. There is
then an occlusion of the above-knee popliteal artery with reconstituted flow behind the knee and the popliteal artery. Heavily calcified vessels. His tibial vessel runoff is a little bit hard to ascertain again because of the nature of the diffuse
plaque.
Plan/ Ischemic rest pain left foot worsened secondary to orthopedic injuries and surgery. Likely chronic disease. I am unclear if his distal SFA occlusion is relatively new as it appears to be somewhat thrombotic but there are some collaterals
around it. And there is heavy plaque beyond it which suggest that there is chronicity here. In addition he has noted ischemic rest pain symptoms for at least 3 weeks or so since his initial orthopedic surgery. He does not have any acute limb
ischemia, but rather chronic limb threatening ischemia with ischemic rest pain. Hard to say exactly what component of his pain is due to his orthopedic injury/surgery and what is due to ischemia. However it does seem worse in the elevation
position and does demonstrate elevation pallor on exam. Therefore likely a significant portion of his pain is due to ischemia. I discussed this all with him. I recommend expeditious angiography to help alleviate his rest pain and help with
healing process for his orthopedic injuries. Discussed procedure of angiography. Discussed potential outcomes with this and areas of potential successful revascularization endovascularly, need for staged surgical intervention, not
unreconstructable disease. I have concerns about the degree of atherosclerosis and plaque and that he may not have great endovascular and/or surgical options in general due to the severe calcific nature of disease. Discussed technical aspects of
angiography, discussed risk/benefits/alternatives of angiography procedure. He understands all and likely wishes to proceed. He wished to talk to his sister first. He was going to talk to her and confirm with us. I discussed the relative urgency
in the sense that he has significant ischemic rest pain and for healing purposes of his orthopedic surgical site/bone. He understands all.
--- NOTE | 2024-01-21 08:26 | W.PN.HOSP.TC ---
Today's Communication/Plan
-
see A/P
Assessment / Plan
Assessment / Plan
HPI: 58-year-old male PMH alcohol use disorder, CAD/CABG, PAD, HTN, HLD, Peripheral neuropathy, recent left tib-fib fracture; who is here for fracture repair revision.
He is lethargic, not able to provide history on admission with some jittery movement, likely due to alcohol intoxication.
A/P
# Recent Acute traumatic left fibular/tubular fracture due to fall and underlying osteoporosis.
# s/p Left tibia shaft fracture open reduction and internal fixation with intramedullary nail by Dr. Jackson 12/25
s/p revision of left tibial shaft ORIF with intramedullary nail and distal fibula fracture ORIF 01/19
Pain control with ORDER FILLER oxycodone, IV Dilaudid PRN
# New complaint of diminished pedal pulse
Vascular service notified
CTA per vascular
Vascular records requested to be obtained from [facility].
# Severe alcohol use disorder
# Possible drug abuse
UDS positive for barbiturate, benzo, marijuana
Alcohol level negative on admission
Per previous record, pt also drinks alcohol daily (about 8 beers and 2 glasses of wine each day)
High risk for alcohol withdrawal syndrome
Cont IMU level of care with [facility]AS protocol.
# Mild hyponatremia, resolved
# Osteoporosis likely due to underlying alcoholism
# CAD/CABG
# PAD with previous right lower extremity femoropopliteal bypass, left lower extremity stenting.
# Essential hypertension
# Hyperlipidemia
# Peripheral neuropathy
ORDER FILLER Gabapentin
Full code
DVT ppx: SCD
d/w Vascular team
total time spent 51 min
Anticipated Discharge: > 48 hours
Subjective/Interval History
-
Date of Service: January 21, 2024
Objective Data
-
Labs:
Laboratory Results
01/21/24
04:13
WBC 9.2
Hgb 12.6 L
Hct 35.5 L
Plt Count 243
Sodium 133 L
Potassium 4.6
Chloride 97 L
Carbon Dioxide 25
BUN 17
Creatinine 0.9
Glucose 108 H
Calcium 9.0
Vital Signs:
Vital Signs
Temp Pulse Resp BP Pulse Ox
36.8 C 79 9 127/90 96
01/21/24 04:31 01/21/24 07:00 01/21/24 07:00 01/21/24 07:00 01/21/24 07:00
I&O
01/20/24 01/21/24 01/22/24
06:59 06:59 06:59
Intake Total 1310 / 1310
Output Total 1450 / 1450 675 / 675 200 / 200
Balance -140 / -140 -675 / -675 -200 / -200
Review of Systems
-
Musculoskeletal: Reports Joint Pain (L leg/ankle pain)
Skin: Reports Other (L dorsum foot pain)
Physical Exam
-
General: Well Developed, Well Nourished, No Apparent Distress, Comfortable and Conversant; Negative Respiratory Distress
HEENT: Normocephalic, Atraumatic, Nose Appears Normal and Ears Appear Normal; Negative Oxygen
Respiratory: Clear to Auscultation and Non Labored Respirations; Negative Accessory Resp Muscle Use
Cardiac: Regular Rhythm and S1/S2
GI: Soft, Nontender, Nondistended and Normal Bowel Sounds
Skin: Warm and Dry
Neuro: Awake, Alert and Oriented
Psych: Calm and Intact Judgement/Insight
Data Reviewed
-
Labs: Labs Reviewed by me
[2024-01-21] MEDS: TOPROL XL 50 MG PO (08:57)
[2024-01-21] MEDS: FOLVITE 1 MG PO (08:57)
[2024-01-21] MEDS: COLACE 100 MG PO ×2 (08:57→19:35)
[2024-01-21] MEDS: NEURONTIN 800 MG PO ×2 (08:58→19:35)
[2024-01-21] MEDS: CYMBALTA DELAYED RELEASE 60 MG PO (08:58)
[2024-01-21] MEDS: ASPIR LOW (ENTERIC COATED) 81 MG PO (08:58)
--- NOTE | 2024-01-21 08:59 | CON.VAS ---
Consultation
Consultation Request
Date/Time Consultation Performed: 01/21/2024 0730
Requesting Provider: Hospitalist
Performing Provider: An Kraft NP-C for Daquan Emmanuel MD
Reason for Consultation: Left foot rest pain
Medical History
-
Chief Complaint: Left dorsum foot pain
History of Present Illness:
This is a 59-year-old male with significant past medical history for alcohol abuse, depression, hypertension, coronary disease, peripheral arterial disease, hyperlipidemia, and peripheral neuropathy who is postop day #1 from left tibia shaft
fracture revision open reduction internal fixation and distal fibular fracture ORIF with orthopedic Dr. Jackson. Patient endorses that he fell roughly 3 weeks ago fracturing his tibia and fibula at his left lower extremity. He underwent surgical
ORIF at that time of fracture, but then required revision as he might have been utilizing the leg more than recommended/noncompliance causing displacement of surgical hardware. Overnight patient reported worsening of left foot dorsum pain prompting
vascular consultation. Patient seen urgently this a.m. following his CTA of aorta with runoff. He is complaining of significant pain on the dorsum of his left foot now. He endorses that the pain is from the mid to distal calf all the way onto the
foot. It is not only on the foot. And it has been present even prior to this surgery, ever since his last surgery/trauma in early December.. However it is definitively worse following this most recent surgery yesterday. He notes that the pain seems
worse when his leg is elevated and then he intentionally hangs his leg down and that alleviates the pain. He offered this information before prompted. He notes that he has had significant peripheral arterial disease history, workup at [facility] prior for claudication resulted in eventual right-sided lower extremity bypass and left-sided endovascular intervention. He notes that these interventions fail to relieve any of his claudication. However he did not prior to his fracture
in the leg have any ischemic rest pain symptoms. Denies any tissue loss. Denies any weakness in the foot. No numbness in the foot currently. Has a history of coronary artery bypass grafting. He also has a history of tobacco use a pack a day for
[address] angiogram reviewed, with attending Dr. Daquan Emmanuel.
Past Medical History
Past Medical History: CAD, HTN, Psychiatric (Depression) and Other (Peripheral arterial disease, peripheral neuropathy, hyperlipidemia)
Past Surgical History: Cardiac (CABG) and Other (Right lower extremity femoropopliteal bypass, Left lower extremity stenting)
Social History
Tobacco: Former Smoker (Long history of tobacco abuse quit last hospitalization roughly 3 weeks ago)
Alcohol: Daily (Concern for alcohol abuse)
Personal:
Living: With Family
Allergies / Home Medications
Allergy/AdvReac Type Severity Reaction Status Date / Time
No Known Allergies Allergy Verified 01/18/24 05:24
�Medication �Instructions �Recorded �Confirmed �Type
aspirin 81 mg tablet,delayed 81 mg PO DAILY Blood Clot 12/25/23 01/18/24 History
release Prevention/Tx
atorvastatin 40 mg tablet 40 mg PO DAILY High Cholesterol 12/25/23 01/18/24 History
clopidogrel 75 mg tablet 75 mg PO DAILY Blood Clot 12/25/23 01/18/24 History
Prevention/Tx
duloxetine 60 mg capsule,delayed 60 mg PO DAILY Depression 12/25/23 01/18/24 History
release
lorazepam 0.5 mg tablet 0.5 mg PO DAILY PRN anxiety 12/25/23 01/18/24 History
losartan 25 mg tablet 25 mg PO DAILY Blood Pressure 12/25/23 01/18/24 History
magnesium oxide 400 mg (241.3 mg 400 mg PO DAILY Supplement 12/25/23 01/18/24 History
magnesium) tablet
metoprolol succinate 25 mg 50 mg PO DAILY Blood Pressure 12/25/23 01/18/24 History
tablet,extended release 24 hr
docusate sodium 100 mg capsule 100 mg PO BIDPRN PRN CONSTIPATION 01/18/24 01/18/24 History
folic acid 1 mg tablet 1 mg PO DAILY Supplement 01/18/24 01/18/24 History
gabapentin 800 mg tablet 800 mg PO BID Pain 01/18/24 01/18/24 History
oxycodone 5 mg tablet 5 mg PO Q4HPRN PRN severe pain 01/18/24 01/18/24 History
oxycodone 5 mg tablet 5 mg PO Q8H PRN Pain #10 tabs 01/18/24 Rx
sennosides 8.6 mg tablet (Senna 17.2 mg PO BIDPRN PRN CONSTIPATION 01/18/24 01/18/24 History
Laxative)
thiamine HCl (vitamin B1) 100 mg 100 mg PO BID Supplement 01/18/24 01/18/24 History
tablet
Review of Systems
-
History Source: Patient
Constitutional: Reports Sleep Disturbance
EENT: Reports No Symptoms
Respiratory: Reports No Symptoms
Cardiac: Reports No Symptoms
Vascular: Reports Leg Pain / Claudication, Numbness and Tingling
Abdomen/GI: Reports No Symptoms
: Reports No Symptoms
Musculoskeletal: Reports Other (Left dorsum foot/calf pain)
Skin: Reports Other (Recent surgery at left lower extremity)
Neurological: Reports No Symptoms
Endocrine: Reports No Symptoms
Physical Exam
Vital Signs
Temp Pulse Resp BP Pulse Ox
98.3 F 79 9 127/90 96
01/21/24 04:31 01/21/24 07:00 01/21/24 07:00 01/21/24 07:00 01/21/24 07:00
Lab Results
01/21/24 04:13
01/21/24 04:13
Physical Exam
General: No Apparent Distress
HEENT: Normocephalic, Anicteric and Atraumatic
Respiratory: Non Labored Respirations
Cardiac: Negative JVD
GI: Soft, Non Tender and Non Distended
Musculoskeletal: Edema (At left foot) and Other (Foot is warm and pink. Left foot and ankle are heavily bandaged and boot/splint in place. Toes slightly ecchymotic in nature and he is noted that they have been like that since his initial fracture.
However he does have what appears to be elevation pallor and dependent rubor. Motor and sensory f)
Skin: Warm, Dry and Other (Recent surgery at left lower extremity, currently left calf cast and upper thigh dressing all CDI)
Neuro: AO x 3 and No Motor Deficits
Psych: Agitated
Pulses: Bilateral Femoral: +1 and Right Dorsalis Pedis: Doppler
Assessment / Plan
-
Assessment: 59-year-old male POD #1 Left tibia shaft fracture revision open reduction and internal fixation with intramedullary nail and distal fibula fracture ORIF by orthopedic team, who has known peripheral arterial disease now with concern for
ischemic rest pain at left foot
Plan:
CTA of aorta with bilateral lower extremity runoff reviewed with attending Dr. Daquan Emmanuel, it is unclear if his distal SFA occlusion is relatively new as it appears to be somewhat thrombotic but there are some collaterals around it, and there is
heavy plaque beyond it which suggest that there is chronicity here. He also endorses ischemic rest pain symptoms for at least 3 weeks or so since his initial orthopedic surgery. This is suggestive of chronic limb threatening ischemia with ischemic
rest pain and not acute limb ischemia.
Recommend expeditious angiography to help alleviate his rest pain and help with healing process for his orthopedic injuries. Dr. Daquan Emmanuel discussed procedure of angiography. Discussed potential outcomes with this and areas of potential
successful revascularization endovascularly, need for staged surgical intervention, not unreconstructable disease. Discussed technical aspects of angiography, discussed risk/benefits/alternatives of angiography procedure.
He understands all and after speaking with his sister agrees to proceed.
NPO
Updated both hospitalist and orthopedic team
Data Reviewed
-
CT Scan: Report Reviewed by me, Discussed with Physician and Discussed with Patient
Labs: Labs Reviewed by me and Discussed with Physician
[2024-01-21] MEDS: COZAAR 25 MG PO (09:06)
[2024-01-21] MEDS: SENOKOT 17.2 MG PO ×2 (09:06→19:36)
[2024-01-21] MEDS: THIAMINE INJECTION IV (09:14)
--- NOTE | 2024-01-21 09:30 | W.SUR.PREOP ---
Pre-Operative Surgical Note
-
I have examined this patient prior to the performance of the scheduled procedure.
The patient's condition is unchanged from the time of the current History and
Physical and the patient is able to undergo the scheduled procedure.
--- NOTE | 2024-01-21 10:44 | PTCARENOTE ---
Pt was sent to Vascular OR approx 09:[address] Angiogram, plan is tentatively for pt to return to IMU post. Pt anxious but in agreement, verbalizes understanding of condition. Report was given to SHYANNE Allison.
--- NOTE | 2024-01-21 10:47 | W.SUR.POST ---
Surgical Immediate Post Op
Note
Pre Op Diagnosis: Left lower extremity PAD, ischemic rest pain
Post Op Diagnosis: Left lower extremity PAD/ischemic rest pain
Procedure Performed: Aortogram, left lower extremity arteriogram, [employer]ILL[employer] and stent to SFA/above-knee popliteal artery, [employer] MAN to behind knee and below knee popliteal artery
Primary Surgeon: Daquan Emmanuel MD
Secondary Surgeons: N/A
Anesthesia: LMA
Estimated Blood Loss: less than 2 ml
Fluids: See anesthesia flowsheet
Drains/Shunts: N/A
Specimens/Cultures: N/A
Doppler/Duplex/Angio (Y/N): Y
Complications: None
Operative Findings: Successful endovascular intervention
[2024-01-21] MEDS: NSS 1000 IV (11:34)
[2024-01-21] MEDS: SUBLIMAZE 50 MCG IV (11:43)
--- NOTE | 2024-01-21 12:17 | PTCARENOTE ---
Report rec'd from VASCULAR SPECIALISTSSHYANNE Renteria pt will be returning to IMU room 9220.
--- NOTE | 2024-01-21 12:53 | PTCARENOTE ---
Pt rec'd back in room from PACU, b/l DPs present with Dopplar. Pt allowed to raise HOB to 30* and will eat lunch then, pt verbalized understanding.
[2024-01-21] MEDS: PLAVIX 75 MG PO (13:31)
--- NOTE | 2024-01-21 13:46 | OR.RPT ---
Operative Report
Operative Report
PROCEDURE DATE: 01/21/2024
Preoperative diagnosis: Severe left lower extremity ischemic rest pain, worsened.
Postoperative diagnosis: Same
Procedure:
1. Duplex assisted right common femoral artery cannulation.
2. Aortogram and pelvic angiogram.
3. Left lower extremity arteriogram with third order vessel catheterization of left popliteal artery via right common femoral artery puncture.
4. Balloon angioplasty/stent placement left distal superficial femoral artery/above-knee and behind the popliteal artery. (Cook Zilver PTX 6 mm x 120 mm drug-eluting self-expanding stent).
5. Balloon angioplasty of the below knee popliteal artery with 4 mm angioplasty balloon.
6. Right femoral angiogram.
7. Supervision and interpretation.
Surgeon: Cholo
Stock Tracer: None
Complications: None
Anesthesia: General, LMA (started as local, sedation but converted to general/LMA).
Fluoroscopy:
13.9 min
64 mGy
16.21 Gy.cm2
Indications for procedure:
Patient with history of known peripheral arterial disease including right lower extremity arterial bypass and from what he reports left lower extremity endovascular treatment, all done at outside facility. Underwent orthopedic procedure for a
fracture several weeks ago or a couple months ago. Ever since then has noted pain in his left ankle and foot. Constant, worse at night when the leg is elevated. He underwent revision orthopedic surgery due to displacement yesterday. Noted early
this a.m./last night severe left dorsal foot pain when in recumbent position. He noted improvement when he hung get off the bed. But his pain was severe constantly. CT angiogram demonstrated diffuse atherosclerotic disease in the left lower
extremity with occlusion of the distal SFA/above-knee popliteal artery. Risk/benefits/alternatives of attempted revascularization were all fully discussed. Patient understood all wish to proceed.
Description of procedure:
Patient was identified, brought to the operating room. Placed on the table in the supine position. After the adequate administration of anesthesia, the patient was prepped and draped in the standard surgical fashion. A standard preoperative
timeout was undertaken and everybody was in agreement with the plan.
The right common femoral artery was accessed with a micropuncture kit under direct duplex ultrasound guidance. A 5 Nauruan sheath was then advanced over a 0.035 inch wire, and a lainez's hook catheter was advanced into the abdominal aorta.
Aortogram and pelvic angiogram was obtained. Findings as follows:
Patent distal infrarenal aorta and bilateral common and external iliac arteries with no significant stenosis. Some luminal irregularities in the right external iliac artery with a possible mild stenosis but no significant stenosis. Eccentric
plaque noted throughout.
Using a floppy angled hydrophilic wire, the left common femoral artery was cannulated and the catheter was advanced. Left lower extremity arteriogram was obtained. Findings as follows:
Common femoral artery: Fairly bulky mid common femoral artery plaque with filling defect likely resulting in moderate stenosis at least.
Profunda femoris artery: Severely diffusely diseased with alternating areas of stenoses. Most significant in the proximal third of the vessel, but diffusely diseased.
Superficial femoral artery: Diffuse luminal irregularities noted throughout the SFA through its proximal two thirds. In the very distal SFA there is an occlusion. Reconstituted flow noted in the distal above-knee popliteal artery. The behind the
popliteal artery appeared to have some disease as well. Below the knee the anterior tibial artery appeared occluded at its origin (that is how it appeared initially, however on later imaging I was able to ascertain that the anterior tibial artery
was patent, but appeared to emanate directly from the tibioperoneal trunk aberrantly).. Primary runoff via the PT and peroneal but filling was very slow from this angiogram likely due to underfilling. There was also disease/plaque noted in these
vessels.
At this point I selectively cannulated the left superficial femoral artery and then exchanged for a Storq wire and an up and over 6 Nauruan sheath. The patient was given 5000 units of intravenous heparin. Next under roadmap assisted guidance using
subintimal technique I was able to recanalize the occluded left superficial femoral and popliteal artery. I was able to pass my catheter and confirmed I was in the true lumen. I then exchanged for a Storq wire. I then preangioplastied the
occluded area with a 4 mm angioplasty balloon. Next I placed a 6 mm x 120 mm Zilver PTX self-expanding drug-eluting stent. This was post angioplasty with a 5 mm balloon. Completion angiogram demonstrated excellent flow through the stented segment
now. There was some disease in the below-knee popliteal artery resulting in diffuse moderate stenosis. Therefore I advanced my wire into the peroneal artery and then performed angioplasty with a 4 mm balloon of that segment. Completion angiogram
now demonstrated improved flow. There was some residual disease in the popliteal artery and there was some disease in the posterior tibial artery runoff as well as in the anterior tibial artery which actually appeared to emanate from the
tibioperoneal trunk (could be seen better now). However, given the patient's symptoms of rest pain, I felt that having treated the occlusion would be sufficient for him. Therefore, at this point my sheath was withdrawn to the right external iliac
artery. Femoral angiogram demonstrated good puncture in the right common femoral artery. Right lower extremity arteriogram demonstrated patent right lower extremity prosthetic bypass. However there is significant disease distal to the bypass as
noted on CT scan. That is what resulted in slow flow through the bypass graft on angiography. At this point I felt nothing further to do. I exchanged for a short 6 Nauruan sheath, and all wires and catheters were removed. The patient was
transported to the recovery room in stable condition where the sheath was withdrawn and manual pressure was applied. Hemostasis was achieved.
The patient tolerated procedure well.
[2024-01-21] MEDS: VITAMIN B1 100 MG PO (19:36)
[2024-01-21] MEDS: ROXICODONE 5 MG PO (22:06)
--- NOTE | 2024-01-21 22:53 | PTCARENOTE ---
Pt received at beginning of shift resting in chair. Finished all of dinner. AAOx3. Requested back to bed. With assist of 1 using RW pt able to pivot from chair to bed using right foot. Dressing to right groin c/d/i. Left lower extremity wrapped in
honorio wrap and splint. Left thigh aquacell dressing intact. B/L pedal pulses present with Doppler. LLE warm with good sensation. Does admit to pain of 5-8/10. Has received Dilaudid IV and PO Roxicodone as ordered. Pt was found with upper body lying
side ways on bed with lower extremities elevated on chair. Pt says 'it's the only way they feel better.' Pt encouraged to lay back in bed and he agreed to do so. VSS. Afebrile. SR on CM. POX 99% on RA. Rest of assessment as documented. Call chavez
remains within reach. Will continue to monitor.
[2024-01-22] VITALS (14 sets, daily range): BP systolic 99–150; BP diastolic 54–81; PULSE 76; O2SAT 98; BMI 23.7
[2024-01-22] MEDS: TYLENOL PO ×3 (00:05→23:48)
[2024-01-22] MEDS: DILAUDID 0.5 MG IV ×3 (01:30→08:22)
[2024-01-22] MEDS: FLUSH (NSS) 2 FLUSH IV ×2 (01:31→04:31)
[2024-01-22 04:50] LABS: Hematocrit 28.1 % (39.0-52.0); Hemoglobin 9.8 g/dL (13.0-18.0); Mean Corp Hgb Conc. 34.9 g/dL (33.0-37.0); Mean Corpuscular Hgb 32.7 pg (27.0-31.0); Mean Corpuscular Volume 93.7 fL (80.0-94.0); Mean Platelet Volume 9.6 fL (7.4-10.4); Platelet Count 182 10^3/uL (130-400); Red Cell Dist. Width 12.3 % (11.5-14.5); White Blood Cell Count 7.6 10^3/uL (4.8-10.8)
[2024-01-22 05:15] LABS: Blood Urea Nitrogen 17 mg/dl (9-20); Calcium 8.4 mg/dl (8.4-10.2); Carbon Dioxide 26 mmol/L (22-30); Chloride 102 mmol/L (98-107); Estimated Creatinine Clearance 85 ml/min; Glucose 101 mg/dl (70-99); Potassium 3.9 mmol/L (3.5-5.1); Sodium 134 mmol/L (135-145); eGFR > 60.00
--- NOTE | 2024-01-22 07:55 | W.PN.HOSP.TC ---
Today's Communication/Plan
-
see A/P
Assessment / Plan
Assessment / Plan
HPI: 58-year-old male PMH alcohol use disorder, CAD/CABG, PAD, HTN, HLD, Peripheral neuropathy, recent left tib-fib fracture; who is here for fracture repair revision.
He is lethargic, not able to provide history on admission with some jittery movement, likely due to alcohol intoxication.
A/P
# Recent Acute traumatic left fibular/tubular fracture due to fall and underlying osteoporosis.
# s/p Left tibia shaft fracture open reduction and internal fixation with intramedullary nail by Dr. Jackson 12/25
s/p revision of left tibial shaft ORIF with intramedullary nail and distal fibula fracture ORIF 01/19
Pain control with FLOOR TECH oxycodone, IV Dilaudid PRN
# New complaint of diminished pedal pulse due to LLE PAD ischemic rest pain
CTA noted ACUTE COMPLETE THROMBOEMBOLIC OCCLUSION of the DISTAL LEFT SUPERFICIAL FEMORAL ARTERY.
s/p emergent Balloon angioplasty/stent placement left distal superficial femoral artery. Balloon angioplasty of the below knee popliteal artery with 4 mm angioplasty balloon.
Cont added plavix
Cont FLOOR TECH ASA
Lovenox SQ for DVT ppx
PT OT Eval post op
# Severe alcohol use disorder
# Possible drug abuse
UDS positive for barbiturate, benzo, marijuana
Alcohol level negative on admission
Per previous record, pt also drinks alcohol daily (about 8 beers and 2 glasses of wine each day)
High risk for alcohol withdrawal syndrome
Cont IMU level of care with MSAS protocol.
# Mild hyponatremia, resolved
# Osteoporosis likely due to underlying alcoholism
# CAD/CABG
# PAD with previous right lower extremity femoropopliteal bypass, left lower extremity stenting.
# Essential hypertension
# Hyperlipidemia
# Peripheral neuropathy
FLOOR TECH Gabapentin
Full code
DVT ppx: Lovenox SQ
DW RN
Anticipated Discharge: > 48 hours
Subjective/Interval History
-
Date of Service: January 22, 2024
Objective Data
-
Labs:
Laboratory Results
01/22/24
04:25
WBC 7.6
Hgb 9.8 L D
Hct 28.1 L
Plt Count 182 D
Sodium 134 L
Potassium 3.9
Chloride 102
Carbon Dioxide 26
BUN 17
Creatinine 0.8
Glucose 101 H
Calcium 8.4
Vital Signs:
Vital Signs
Temp Pulse Resp BP Pulse Ox
36.8 C 63 11 137/77 95
01/22/24 07:20 01/22/24 06:00 01/22/24 06:00 01/22/24 06:00 01/22/24 06:00
I&O
01/21/24 01/22/24 01/23/24
06:59 06:59 06:59
Intake Total 1560 / 1560
Output Total 675 / 675 1550 / 1550
Balance -675 / -675
Review of Systems
-
Musculoskeletal: Reports Joint Pain (L leg/ankle pain)
Skin: Reports Other (L dorsum foot pain)
Physical Exam
-
General: Well Developed, Well Nourished, No Apparent Distress, Comfortable and Conversant; Negative Respiratory Distress
HEENT: Normocephalic, Atraumatic, Nose Appears Normal and Ears Appear Normal; Negative Oxygen
Respiratory: Clear to Auscultation and Non Labored Respirations; Negative Accessory Resp Muscle Use
Cardiac: Regular Rhythm and S1/S2
GI: Soft, Nontender, Nondistended and Normal Bowel Sounds
Skin: Warm and Dry
Neuro: Awake, Alert and Oriented
Psych: Calm and Intact Judgement/Insight
Data Reviewed
-
Labs: Labs Reviewed by me
[2024-01-22] MEDS: ASPIR LOW (ENTERIC COATED) 81 MG PO (08:19)
[2024-01-22] MEDS: TOPROL XL 50 MG PO (08:19)
[2024-01-22] MEDS: FOLVITE 1 MG PO (08:19)
[2024-01-22] MEDS: CYMBALTA DELAYED RELEASE 60 MG PO (08:21)
[2024-01-22] MEDS: VITAMIN B1 100 MG PO ×2 (08:21→20:32)
[2024-01-22] MEDS: SENOKOT 17.2 MG PO ×2 (08:21→20:32)
[2024-01-22] MEDS: COZAAR 25 MG PO (08:21)
[2024-01-22] MEDS: PLAVIX 75 MG PO (08:21)
[2024-01-22] MEDS: COLACE 100 MG PO ×2 (08:22→20:32)
[2024-01-22] MEDS: TYLENOL 650 MG PO ×4 (08:22→20:32)
[2024-01-22] MEDS: NEURONTIN 800 MG PO ×2 (08:22→20:32)
--- NOTE | 2024-01-22 09:18 | W.PN.VS ---
Today's Communication / Plan
-
see above
Assessment/Plan
-
59M s/p L tib/fib with occlusion of SFA/Pop now s/p reperfusion
-continue asa/plavix
-can go to Q4H neurovascular checks
-vascular will sign off, call with questions
Subjective Data
-
Date of Service: January 22, 2024
Pt seen and examined at bedside. MARTINEO. Pain in LLE improved and no longer in rest pain. Sensory intact with good mobility of hallux but diminished in remainder of toes
Objective Data
-
Vital Signs
Temp Pulse Resp BP Pulse Ox
98.3 F 78 11 127/54 95
01/22/24 07:20 01/22/24 08:19 01/22/24 06:00 01/22/24 08:19 01/22/24 06:00
Intake and Output
01/21/24 01/22/24 01/23/24
06:59 06:59 06:59
Intake Total 1560 / 1560
Output Total 675 / 675 1550 / 1550
Balance -675 / -675
Intake:
Oral fluids 480 / 480
IV fluids (Total) 1080 / 1080
Normosol 100 / 100
Output:
Urine, Voided 675 / 675 1550 / 1550
Lab Results
01/22/24 04:25
01/22/24 04:25
Calcium 8.4 mg/dl (8.4-10.2) 01/22/24 04:25
Total Bilirubin 0.6 mg/dl (0.2-1.3) 01/18/24 10:21
AST 26 U/L (17-59) 01/18/24 10:21
ALT 18 U/L (0-50) 01/18/24 10:21
Alkaline Phosphatase 88 U/L (38-126) 01/18/24 10:21
Total Protein 7.0 g/dl (6.3-8.2) 01/18/24 10:21
Albumin 4.4 g/dl (3.5-5.0) 01/18/24 10:21
Physical Exam
-
R groin: C/D/I; no hemaotma
LLE: monophasic DP; motor and sensory intact
[2024-01-22] MEDS: ROXICODONE 5 MG PO ×4 (09:33→22:02)
--- NOTE | 2024-01-22 10:13 | W.PN.ORTHO ---
Today's Communication / Plan
-
POD #2 s/p revision left IM nail and ORIF distal fibula
-Strict NWB LLE.
-PT/OT to tolerance.
-ASA/Plavix of DVT prophylaxis.
-Maintain splint until post op appt.
-F/u in office in 3 weeks for repeat x-rays.
-Appreciate case management's efforts is d/c planning. Will likely be SNF/rehab this time around.
-Will need cefadroxil 500 mg PO BID x 7 days upon d/c for infection prophylaxis.
-Will continue to follow while inpatient.
Assessment
.
Distal Motor Intact: Yes
Dressing:
Clean, dry and intact.
Assessment:
POD #2 s/p revision left IM nail and ORIF distal fibula
-Strict NWB LLE.
-PT/OT to tolerance.
-ASA/Plavix of DVT prophylaxis.
-Maintain splint until post op appt.
-F/u in office in 3 weeks for repeat x-rays.
-Appreciate case management's efforts is d/c planning. Will likely be SNF/rehab this time around.
-Will continue to follow while inpatient.
Plan
.
Surgery / Date: L IM nail revision, distal fibula ORIF
DVT Prophylaxis: Aspirin and Other
Activity:
Out of bed.
PT/OT
Discharge Plan: Rehab
Subjective
.
.:
Patient resting comfortably in bedside chair. Reports his vascular pain in his foot has resolved, but he has pain diffusely about the ankle and lower leg. 3 way splint intact.
Vital Signs and Labs
.
Vital Signs and Labs:
Lab Results
01/22/24 04:25
01/22/24 04:25
Temp Pulse Resp BP Pulse Ox
98.3 F 78 11 127/54 95
01/22/24 07:20 07/13/24 08:19 01/22/24 06:00 01/22/24 08:19 01/22/24 06:00
Physical Exam
-
Left leg: Splint intact. Dorsum of foot and toes warm and well perfused. Moderate swelling and ecchymosis. Able to wiggle toes. Aquacel on knee is intact with minimal/stable drainage. Mild swelling of knee.
--- NOTE | 2024-01-22 13:49 | PTCARENOTE ---
Pt reports better/longer management of his pain with 5 mg Roxicodone dose as opposed to Dilaudid. Will medicate PRN pain left leg. Pt feeling much better, in good spirits today. Continuing to monitor. Vascular checks WNL.
[2024-01-22] MEDS: KEFLEX 500 MG PO (20:32)
--- NOTE | 2024-01-22 20:46 | PTCARENOTE ---
Pt received resting in bed at change of shift. AAOx3. Drowsy after receiving pain med on day shift. Pt stated he 'just want to sleep tonight.' Received HS meds. Neurovascular assessment to LLE completed and unchanged from previous. Turning self in
bed. VSS. Afebrile. SR on CM. Rest of assessment as documented. Call chavez remains within reach. Will continue to monitor.
[2024-01-23] VITALS (18 sets, daily range): BP systolic 103–187; BP diastolic 68–100; PULSE 76–88; O2SAT 98; BMI 23.9
[2024-01-23] MEDS: ROXICODONE 5 MG PO ×5 (02:02→20:16)
[2024-01-23] MEDS: TYLENOL 650 MG PO ×5 (02:04→20:11)
[2024-01-23 04:55] LABS: Hematocrit 33.4 % (39.0-52.0); Hemoglobin 11.6 g/dL (13.0-18.0); Mean Corp Hgb Conc. 34.7 g/dL (33.0-37.0); Mean Corpuscular Hgb 33.3 pg (27.0-31.0); Mean Platelet Volume 9.6 fL (7.4-10.4); Platelet Count 173 10^3/uL (130-400); Red Blood Cell Count 3.48 10^6/uL (4.70-6.10); Red Cell Dist. Width 12.1 % (11.5-14.5); White Blood Cell Count 6.9 10^3/uL (4.8-10.8)
[2024-01-23 05:17] LABS: Blood Urea Nitrogen 15 mg/dl (9-20); Calcium 9.3 mg/dl (8.4-10.2); Carbon Dioxide 25 mmol/L (22-30); Chloride 102 mmol/L (98-107); Estimated Creatinine Clearance 97 ml/min; Glucose 94 mg/dl (70-99); Potassium 4.1 mmol/L (3.5-5.1); Sodium 135 mmol/L (135-145); eGFR > 60.00
--- NOTE | 2024-01-23 07:37 | W.PN.HOSP.TC ---
Today's Communication/Plan
-
see A/P
Assessment / Plan
Assessment / Plan
HPI: 58-year-old male PMH alcohol use disorder, CAD/CABG, PAD, HTN, HLD, Peripheral neuropathy, recent left tib-fib fracture; who is here for fracture repair revision.
He is lethargic, not able to provide history on admission with some jittery movement, likely due to alcohol intoxication.
A/P
# Recent Acute traumatic left fibular/tubular fracture due to fall and underlying osteoporosis.
# s/p Left tibia shaft fracture open reduction and internal fixation with intramedullary nail by Dr. Jackson 12/25
s/p revision of left tibial shaft ORIF with intramedullary nail and distal fibula fracture ORIF 01/19
Pain control with LOGISTICS ANALYTICS MANAGER oxycodone, IV Dilaudid PRN
7 days empiric Abx per ortho
DVT ppx with ASA and Plavix (see below)
# New complaint of diminished pedal pulse due to LLE PAD ischemic rest pain
CTA noted ACUTE COMPLETE THROMBOEMBOLIC OCCLUSION of the DISTAL LEFT SUPERFICIAL FEMORAL ARTERY.
s/p emergent Balloon angioplasty/stent placement left distal superficial femoral artery. Balloon angioplasty of the below knee popliteal artery with 4 mm angioplasty balloon.
Cont LOGISTICS ANALYTICS MANAGER ASA, Added plavix, cont DAPT for stent
PT OT eval for dispo
# Severe alcohol use disorder
# Possible drug abuse
UDS positive for barbiturate, benzo, marijuana
Alcohol level negative on admission
Per previous record, pt also drinks alcohol daily (about 8 beers and 2 glasses of wine each day)
High risk for alcohol withdrawal syndrome
Cont IMU level of care with MSAS protocol.
# Mild hyponatremia, resolved
# Osteoporosis likely due to underlying alcoholism
# CAD/CABG
# PAD with previous right lower extremity femoropopliteal bypass, left lower extremity stenting.
# Essential hypertension
# Hyperlipidemia
# Peripheral neuropathy
LOGISTICS ANALYTICS MANAGER Gabapentin
Full code
DVT ppx: ASA/plavix
Anticipated Discharge: 24 - 48 hours
Subjective/Interval History
-
Date of Service: January 23, 2024
Objective Data
-
Labs:
Laboratory Results
01/23/24
04:39
WBC 6.9
Hgb 11.6 L
Hct 33.4 L
Plt Count 173
Sodium 135
Potassium 4.1
Chloride 102
Carbon Dioxide 25
BUN 15
Creatinine 0.7
Glucose 94
Calcium 9.3
Vital Signs:
Vital Signs
Temp Pulse Resp BP Pulse Ox
36.4 C 87 17 130/76 95
01/23/24 03:11 01/23/24 04:00 01/23/24 04:00 01/23/24 04:00 01/22/24 19:41
I&O
01/22/24 01/23/24 01/24/24
06:59 06:59 06:59
Intake Total 1560 / 1560 598 / 598
Output Total 1550 / 1550 1175 / 1175
Balance -577 / -577
Review of Systems
-
Musculoskeletal: Reports Joint Pain (L leg/ankle pain)
Skin: Reports Other (L dorsum foot pain)
Physical Exam
-
General: Well Developed, Well Nourished, No Apparent Distress, Comfortable and Conversant; Negative Respiratory Distress
HEENT: Normocephalic, Atraumatic, Nose Appears Normal and Ears Appear Normal; Negative Oxygen
Respiratory: Clear to Auscultation and Non Labored Respirations; Negative Accessory Resp Muscle Use
Cardiac: Regular Rhythm and S1/S2
GI: Soft, Nontender, Nondistended and Normal Bowel Sounds
Skin: Warm and Dry
Neuro: Awake, Alert and Oriented
Psych: Calm and Intact Judgement/Insight
Data Reviewed
-
Labs: Labs Reviewed by
[2024-01-23] MEDS: ASPIR LOW (ENTERIC COATED) 81 MG PO (08:06)
[2024-01-23] MEDS: COLACE 100 MG PO ×2 (08:06→20:12)
[2024-01-23] MEDS: COZAAR 25 MG PO (08:06)
[2024-01-23] MEDS: FOLVITE 1 MG PO (08:08)
[2024-01-23] MEDS: CYMBALTA DELAYED RELEASE 60 MG PO (08:08)
[2024-01-23] MEDS: SENOKOT 17.2 MG PO ×2 (08:09→20:12)
[2024-01-23] MEDS: NEURONTIN 800 MG PO ×2 (08:09→20:12)
[2024-01-23] MEDS: KEFLEX 500 MG PO ×2 (08:09→20:12)
[2024-01-23] MEDS: PLAVIX 75 MG PO (08:09)
[2024-01-23] MEDS: TOPROL XL 50 MG PO ×2 (08:10→20:12)
[2024-01-23] MEDS: VITAMIN B1 100 MG PO ×2 (08:10→20:12)
--- NOTE | 2024-01-23 09:13 | W.PN.ORTHO ---
Today's Communication / Plan
-
POD #3 s/p revision left IM nail and ORIF distal fibula
-Strict NWB LLE.
-PT/OT to tolerance.
-Encouraged application of ice to left anterior ankle and behind the left knee.
-ASA/Plavix for DVT prophylaxis.
-Maintain splint until post op appt.
-F/u in office in 3 weeks for repeat x-rays.
-Appreciate case management's efforts is d/c planning. Will likely be SNF/rehab this time around.
-Will need cefadroxil 500 mg PO BID x 7 days upon d/c for infection prophylaxis.
-Will continue to follow while inpatient.
Assessment
.
Distal Motor Intact: Yes
Dressing:
Clean, dry and intact.
Assessment:
POD #3 s/p revision left IM nail and ORIF distal fibula
-Strict NWB LLE.
-PT/OT to tolerance.
-Encouraged application of ice to left anterior ankle and behind the left knee.
-ASA/Plavix for DVT prophylaxis.
-Maintain splint until post op appt.
-F/u in office in 3 weeks for repeat x-rays.
-Appreciate case management's efforts is d/c planning. Will likely be SNF/rehab this time around.
-Will need cefadroxil 500 mg PO BID x 7 days upon d/c for infection prophylaxis.
-Will continue to follow while inpatient.
Plan
.
Surgery / Date: L IM nail revision, distal fibula ORIF
Activity:
Out of bed.
PT/OT
Discharge Plan: SNF
Subjective
.
.:
Patient resting comfortably in bed. Still experiencing pain in the left ankle/lower leg. Reports this has not increased at all. Has been taking Oxycodone with mild relief of symptoms. Has not been icing the left ankle/lower leg.
Vital Signs and Labs
.
Vital Signs and Labs:
Lab Results
01/23/24 04:39
01/23/24 04:39
Temp Pulse Resp BP Pulse Ox
97.5 F 82 17 187/87 95
01/23/24 03:11 01/23/24 08:10 01/23/24 04:00 01/23/24 08:10 01/22/24 19:41
Physical Exam
-
Left leg: Splint intact. Foot with mild swelling and moderate ecchymosis. Warm to the touch. Good pedal pulse. Able to wiggle toes without discomfort. Aquacel on knee with stable drainage. No significant swelling of knee.
--- NOTE | 2024-01-23 17:24 | PTCARENOTE ---
Patient verbalizing improvement in pain level today. Stated that his pain is now controlled for 4 hours and the lowest it went was a 2 out of 10. Patient has excellent appetite, was out of bed to chair for several hours. Left leg wrapped in honorio
bandage, neurovascular checks WNL.
[2024-01-24] VITALS (12 sets, daily range): BP systolic 110–175; BP diastolic 68–95; PULSE 81–82
[2024-01-24] MEDS: ROXICODONE 5 MG PO ×5 (00:46→17:29)
[2024-01-24] MEDS: TYLENOL 650 MG PO ×5 (00:47→17:29)
--- NOTE | 2024-01-24 04:05 | PTCARENOTE ---
Pt continued on Q4 vascular checks to left leg/foot. Per Pt pain in more manageable this evening. Assessment care and vitals as charted.
[2024-01-24 05:36] LABS: Hematocrit 32.2 % (39.0-52.0); Hemoglobin 11.3 g/dL (13.0-18.0); Mean Corp Hgb Conc. 35.1 g/dL (33.0-37.0); Mean Corpuscular Hgb 32.8 pg (27.0-31.0); Mean Corpuscular Volume 93.3 fL (80.0-94.0); Mean Platelet Volume 9.5 fL (7.4-10.4); Platelet Count 186 10^3/uL (130-400); Red Blood Cell Count 3.45 10^6/uL (4.70-6.10); Red Cell Dist. Width 12.1 % (11.5-14.5); White Blood Cell Count 5.9 10^3/uL (4.8-10.8)
[2024-01-24 05:51] LABS: Blood Urea Nitrogen 16 mg/dl (9-20); Calcium 9.4 mg/dl (8.4-10.2); Carbon Dioxide 26 mmol/L (22-30); Chloride 102 mmol/L (98-107); Estimated Creatinine Clearance 97 ml/min; Glucose 99 mg/dl (70-99); Potassium 4.1 mmol/L (3.5-5.1); Sodium 136 mmol/L (135-145); eGFR > 60.00
[2024-01-24] MEDS: ASPIR LOW (ENTERIC COATED) 81 MG PO (09:15)
[2024-01-24] MEDS: COLACE 100 MG PO (09:15)
[2024-01-24] MEDS: FOLVITE 1 MG PO (09:15)
[2024-01-24] MEDS: PLAVIX 75 MG PO (09:16)
[2024-01-24] MEDS: SENOKOT 17.2 MG PO (09:16)
[2024-01-24] MEDS: NEURONTIN 800 MG PO (09:17)
[2024-01-24] MEDS: KEFLEX 500 MG PO (09:17)
[2024-01-24] MEDS: CYMBALTA DELAYED RELEASE 60 MG PO (09:17)
[2024-01-24] MEDS: TOPROL XL 50 MG PO (09:18)
[2024-01-24] MEDS: VITAMIN B1 100 MG PO (09:18)
--- NOTE | 2024-01-24 09:20 | W.PN.HOSP.TC ---
Addendum entered and electronically signed by Maddy Chicas MD 01/24/24 15:46:
CVS: S1-S2 normal
Chest: CTA B/L
Abdomen: Soft, NT
Extremities: Left leg on splint, Good neuro exam on the toes.
SUPER[employer]OR [employer]: Non focal exam
58-year-old female here for fracture repair revision. Patient stated that he went home and fell after the first surgery
# Recent acute traumatic left tib-fib fracture-traumatic and underlying osteoporosis
s/p Left tibia shaft fracture open reduction and internal fixation with intramedullary nail by Dr. Jackson 12/25
s/p revision of left tibial shaft ORIF with intramedullary nail and distal fibula fracture ORIF 01/19
Pain control with ELECTRICIAN APPRENTICE POWERHOUSE oxycodone, IV Dilaudid PRN
7 days empiric Abx per ortho-'cefadroxil 500 mg PO BID x 7 days upon d/c for infection prophylaxis.'
DVT ppx with ASA and Plavix (see below)
# New complaint of diminished pedal pulse due to LLE PAD ischemic rest pain
Previous right lower extremity femoropopliteal bypass, left lower extremity stenting.
CTA noted ACUTE COMPLETE THROMBOEMBOLIC OCCLUSION of the DISTAL LEFT SUPERFICIAL FEMORAL ARTERY.
s/p emergent Balloon angioplasty/stent placement left distal superficial femoral artery. Balloon angioplasty of the below knee popliteal artery with 4 mm angioplasty balloon.
Cont ELECTRICIAN APPRENTICE POWERHOUSE ASA, Added Plavix, cont DAPT for stent .
# Severe alcohol use disorder
Urine tox cream is also positive for barbiturates, Benzos and marijuana.
Alcohol was negative this admission
Daily alcohol use
Watch for alcohol withdrawal
MSAS
Thiamine
# Mild hyponatremia-Resolved
# CAD with history of CABG
# Essential hypertension-losartan, metoprolol
# Hyperlipidemia/atherosclerosis-continue statin
# Peripheral neuropathy-Continue Gabapentin, duloxetine
# Osteoporosis
# DVT prophylaxis-Aspirin / Plavix
# Full code
Patient advised to go to rehab however he wants to go home
PT also has not sure if the patient would qualify for rehab at this point
Patient to keep the splint on
Discussed with orthopedics
Discussed with case management
Total discharge coordination time more than 35 minutes
Original Note:
Today's Communication/Plan
-
d/c home with VN
Assessment / Plan
Assessment / Plan
HPI: 58-year-old male PMH alcohol use disorder, CAD/CABG, PAD, HTN, HLD, Peripheral neuropathy, recent left tib-fib fracture; who is here for fracture repair revision.
He is lethargic, not able to provide history on admission with some jittery movement, likely due to alcohol intoxication.
A/P
# Recent Acute traumatic left fibular/tubular fracture due to fall and underlying osteoporosis.
# s/p Left tibia shaft fracture open reduction and internal fixation with intramedullary nail by Dr. Jackson 12/25
s/p revision of left tibial shaft ORIF with intramedullary nail and distal fibula fracture ORIF 01/19
Pain control with ELECTRICIAN APPRENTICE POWERHOUSE oxycodone, IV Dilaudid PRN
7 days empiric Abx per ortho Day 3
DVT ppx with ASA and Plavix
PT/OT to tolerance
Strict NWB left lower extremity per Ortho
Follow-up with Ortho in 3 weeks for repeat x-ray
Maintain splint until appointment with Ortho
# New complaint of diminished pedal pulse due to LLE PAD ischemic rest pain
CTA noted ACUTE COMPLETE THROMBOEMBOLIC OCCLUSION of the DISTAL LEFT SUPERFICIAL FEMORAL ARTERY.
s/p emergent Balloon angioplasty/stent placement left distal superficial femoral artery. Balloon angioplasty of the below knee popliteal artery with 4 mm angioplasty balloon.
Cont ELECTRICIAN APPRENTICE POWERHOUSE ASA, Added plavix, cont DAPT for stent
Ortho recs dispo to SNF/rehab
# Severe alcohol use disorder
# Possible drug abuse
UDS positive for barbiturate, benzo, marijuana
Alcohol level negative on admission
Per previous record, pt also drinks alcohol daily (about 8 beers and 2 glasses of wine each day)
High risk for alcohol withdrawal syndrome
Cont IMU level of care with MSAS protocol.
# Mild hyponatremia, resolved
# Osteoporosis likely due to underlying alcoholism
# CAD/CABG
# PAD with previous right lower extremity femoropopliteal bypass, left lower extremity stenting.
# Essential hypertension
# Hyperlipidemia
# Peripheral neuropathy
ELECTRICIAN APPRENTICE POWERHOUSE Gabapentin
Full code
DVT ppx: ASA/plavix
Anticipated Discharge: Today
Subjective/Interval History
-
Date of Service: January 24, 2024
Objective Data
-
Labs:
Laboratory Results
01/24/24
05:27
WBC 5.9
Hgb 11.3 L
Hct 32.2 L
Plt Count 186
Sodium 136
Potassium 4.1
Chloride 102
Carbon Dioxide 26
BUN 16
Creatinine 0.7
Glucose 99
Calcium 9.4
Vital Signs:
Vital Signs
Temp Pulse Resp BP Pulse Ox
98.1 F 71 23 138/76 98
01/24/24 07:36 01/24/24 09:18 01/24/24 08:00 01/24/24 09:18 01/23/24 21:45
I&O
01/23/24 01/24/24 01/25/24
06:59 06:59 06:59
Intake Total 598 / 598 1000 / 1000
Output Total 1175 / 1175 1800 / 1800
Balance -577 / -577 -800 / -800
Review of Systems
-
History Source: Patient
Constitutional: Denies Fever
Respiratory: Denies Cough
Cardiac: Denies Chest Pain
Abdomen/GI: Denies Abdominal Pain
Musculoskeletal: Reports Joint Pain and Muscle Pain; Denies Edema
Neuro: Denies Headache
Physical Exam
-
General: Well Developed, Well Nourished and No Apparent Distress
HEENT: Normocephalic and Atraumatic
Respiratory: Clear to Auscultation
Cardiac: Regular Rhythm
GI: Soft and Nontender
Skin: Warm and Dry
Psych: Calm
Data Reviewed
-
Labs: Labs Reviewed by me, Discussed with Physician and Discussed with Patient
[2024-01-24] MEDS: COZAAR 25 MG PO (09:28)
--- NOTE | 2024-01-24 09:35 | W.DCSUMMARY ---
Discharge Summary
Discharge Data
Date of Admission: 01/18/24
Date of Discharge: 01/24/24
-
Pending Results: No
Hospital Course
Discharging Physician : Angel Moreira MD ; Maddy pino MD
Disposition : Home with health aide
Primary care physician : unknown
Principal Discharge diagnosis : Acute traumatic left tibia left fibula fracture
Chronic Discharge diagnosis : Alcohol use disorder, mild hyponatremia, CAD s/p CABG, hypertension, hyperlipidemia, peripheral neuropathy, osteoporosis
Hospital Course : 58-year-old male presented for fracture repair and revision. He reported that he had original surgery on December 25 and after few days he had a fall, broke the latasha in the leg and started to notice increased pain. He had revision
open reduction internal fixation surgery on 01/19 and he was started on empiric antibiotics. Given history of alcohol use disorder he was put on alcohol withdrawal protocol. He reported a new complaint of diminished pedal pulses likely due to PAD
ischemic rest pain. CTA noted that he had acute complete thromboembolic occlusion of the distal left superficial femoral vein and he had an emergent balloon angioplasty/stent placement left distal superficial femoral artery, balloon angioplasty of
below-knee popliteal artery with 4 mm angioplasty balloon. He was continued on double antiplatelet therapy for stent. PT OT recommended dispo to rehab but patient refused and insisted to go home. He was cleared by orthopedic for discharge home
with visiting nurse. He verified understanding that he should take additional 5 days of antibiotics, strict no weightbearing on the left lower extremity as per the recommendations from Ortho, maintain splint until fu with orthopedic in couple weeks.
Important imaging findings : Xray 01/17; .). There is nondisplaced oblique fracture of the distal diaphysis of the tibia traversed by intramedullary latasha but without significant periosteal new bone formation or osseous bridging. There is a stable
nondisplaced oblique fracture of the distal fibular metaphysis without significant periosteal new bone formation or osseous bridging. There is stable nondisplaced oblique fracture of proximal metaphysis and diaphysis of the fibula without
significant periosteal new bone formation or osseous bridging
Procedure findings : Placement of a metallic plate and 5 surgical screws along lateral distal left fibula. There is intramedullary latasha present with 2 proximal surgical screws and 2 distal surgical screws in the tibia. An oblique fracture of the
distal shaft of the tibia is visualized. There is mildly displaced in stable. There is a nondisplaced oblique fracture of the proximal fibula which is stable.
Discharge Plan
-
Patient Disposition: Home with Home Care
Discharge Diagnosis/Procedures: Acute traumatic left fibular/tibial fracture due to fall, acute complete thromboembolic occlusion of distal left superficial femoral artery
Condition: Fair
Diet: As tolerated
Activity: Do not bear weight L leg
Driving Restrictions: No driving
Bathing Restrictions: After dressing removed
Others Tests: Your follow-up arterial ultrasound is scheduled for 03/08/2024 at 1pm
Other Services: VN, PT and OT
Wound Care: maintain dressing and splint until first postop
Activity Restrictions/Additional Instructions:
Strict Non weight bearing Left leg
PT/OT
Encouraged application of ice to left anterior ankle and behind the left knee.
Maintain splint until post op appointment.
F/u in office in [place] office 3 weeks for repeat x-rays.
Please stop alcohol use.
Referrals:
Victor Manuel [facility] MD [Active] - in two to three weeks (follow-up 3 weeks from date of surgery for clinical exam and possible suture removal. )
UNKNOWN - PT DOES,NOT KNOW [Family Provider] -
Stefania Deleon CRNP [Specified Professional Personl] - 03/10/24 9:15 am
Additional Discharge Medication Instructions: Oxycodone 5 mg tablets every 8h as needed
Continue metoprolol succinate 50 mg ( 2 tab 25mg) tablet daily- Monitot daily Bp
cefadroxil 500mg twice daily by mouth for 5 days
Prescriptions:
New
oxycodone 5 mg tablet
5 mg PO Q8H PRN (Reason: Pain) Qty: 10 0RF
cefadroxil 500 mg capsule
500 mg PO BID Qty: 10 0RF
Continued
atorvastatin 40 mg Tablet
40 mg PO DAILY
clopidogrel 75 mg Tablet
75 mg PO DAILY
aspirin 81 mg Tablet,Delayed Release (Dr/Ec)
81 mg PO DAILY
magnesium oxide 400 mg (241.3 mg magnesium) Tablet
400 mg PO DAILY
lorazepam 0.5 mg Tablet
0.5 mg PO DAILY PRN (Reason: anxiety)
Hold Instructions: Resume on 01/01/24.
losartan 25 mg Tablet
25 mg PO DAILY
Hold Instructions: Resume on 01/04/24. Review your medication list with your primary care provider and resume this medication when your primary care provider says it is okay to resume it.
metoprolol succinate 25 mg Tablet Extended Release 24 Hr
50 mg PO DAILY
Patient Comments:
12/25/2023, prescribed for pt. to take 1 tab TID but pt. takes 2 tabs Daily.
duloxetine 60 mg capsule,delayed release(DR/EC)
60 mg PO DAILY
sennosides [Senna Laxative] 8.6 mg tablet
17.2 mg PO BIDPRN PRN (Reason: CONSTIPATION)
docusate sodium 100 mg capsule
100 mg PO BIDPRN PRN (Reason: CONSTIPATION)
oxycodone 5 mg Tablet
5 mg PO Q4HPRN PRN (Reason: severe pain)
thiamine HCl (vitamin B1) 100 mg tablet
100 mg PO BID
gabapentin 800 mg tablet
800 mg PO BID
folic acid 1 mg tablet
1 mg PO DAILY
Discharge Orders:
Discharge Patient (As Directed); Ordered 01/24/24
Ordered By: Angel Moreira
Discharge Date and Time
Discharge Date/Time: 01/24/24 17:37
Print Language: SOU[place] KOREAN
--- NOTE | 2024-01-24 10:37 | W.PN.UPDATE ---
Update Note
Progress Note Update
POD #4 s/p revision left IM nail and ORIF distal fibula (Renetta). Dressings/splint in place. Doing and feeling reasonably well this AM. No significant LLE pain. DNVI LLE
Continue treatment per the primary team, and as follows:
-Strict NWB LLE.
-PT/OT to tolerance.
-Encouraged application of ice to left anterior ankle and behind the left knee.
-ASA/Plavix for DVT prophylaxis.
-Maintain splint until post op appt.
-F/u in office in 3 weeks for repeat x-rays.
-Appreciate case management's efforts is d/c planning. Will likely be SNF/rehab.
-Will need cefadroxil 500 mg PO BID x 7 days upon d/c for infection prophylaxis (Can this be Rx'd by primary team on D/c?).
-Will continue to follow while inpatient.
--- NOTE | 2024-01-24 12:13 | CM ---
Addendum entered by Nicole Araiza RN 01/24/24 16:51:
Spoke with Khalif Cagle [facility]; [facility] doesn't have an available bed. [facility] SNF is available if patient agrees- informed her patient not agreeing to go anywhere else and now wanting to go home instead.
Met with patient again with his sister Jessie on speaker phone; patient aware [facility] doesn't have a bed and patient states he doesn't want to go anywhere else. Patient states he wants to go home today - both agree to discharge today with resumption of
VN. His brother in law will provide transport home. Patient says ortho doctor wants dressing to stay on for 3 weeks until seen by ortho.
Spoke with EMMA Polanco; patient can be seen tomorrow. Referral in [facility] to resume service with SN/PT/OT.
[facility].
Original Note:
Patient with Dx Recent Acute traumatic left fibular/tubular Fx s/p ORIF with nail, Severe alcohol use disorder, Possible drug abuse, s/p revision left IM nail and ORIF distal fibula. NWB LLE. PT & OT recommend skilled rehab vs HH.
Spoke with [facility]; he met with the patient yesterday. He declined an inpatient program however accepted outpatient resources. Truman suggested [facility] or [facility] programs that are located near where he lives. The patient told him he will
continue with therapy at [facility].
Met with patient and discussed SNF for rehab vs home with HH. Addressed with him importance of being compliant with wt bearing restriction and importance of doing PT/OT. Asked him how much help he would have from his roommate and he provided vague
answer roommate would be there. Discussed SNF facilities and he agrees to a referral to [facility] which is close to where family resides.
Asked patient about his meeting with [facility] and patient stated he could not remember what they offered him for outpatient follow up. Found the brochures [facility] left for him and told him they suggested [facility] or [facility]. Patient did not look at [facility]
paperwork and seemed dismissive/did not seem interested, although he stated he would follow through. When asked he also said he would follow up with [facility].
Spoke with [facility]; she will review the referral and let CM know if they can accept.
Plan follow up SNF referral.
== END 2024-01-24 17:37 | disposition home health service (06) | DRG 493 ==
LOC: IMU 12:23
PROVIDERS: ADMITTING PHYSICIAN Internal Medicine; ATTENDING PHYSICIAN Hospitalist; EMERGENCY PHYSICIAN Emergency Medicine; OTHER PHYSICIAN Orthopaedic Surgery; OTHER PHYSICIAN Surgery Vascular Surgery
PROC: 0QSK04Z Reposition Left Fibula with Internal Fixation Device, Open Approach (ICD-10-PCS; 2024-01-20)
PROC: 0QPH04Z Removal of Internal Fixation Device from Left Tibia, Open Approach (ICD-10-PCS; 2024-01-20)
PROC: 0QSH06Z Reposition Left Tibia with Intramedullary Internal Fixation Device, Open Approach (ICD-10-PCS; 2024-01-20)
PROC: 047N3ZZ Dilation of Left Popliteal Artery, Percutaneous Approach (ICD-10-PCS; 2024-01-21)
PROC: 047L34Z Dilation of Left Femoral Artery with Drug-eluting Intraluminal Device, Percutaneous Approach (ICD-10-PCS; 2024-01-21)
DX: S82.232A Displaced oblique fracture of shaft of left tibia, initial encounter for closed fracture (principal); E87.1 Hypo-osmolality and hyponatremia; M80.062A Age-related osteoporosis with current pathological fracture, left lower leg, initial encounter for fracture; I74.3 Embolism and thrombosis of arteries of the lower extremities; I70.222 Atherosclerosis of native arteries of extremities with rest pain, left leg; F10.20 Alcohol dependence, uncomplicated; Z95.820 Peripheral vascular angioplasty status with implants and grafts; I10 Essential (primary) hypertension; S82.832A Other fracture of upper and lower end of left fibula, initial encounter for closed fracture; W19.XXXA Unspecified fall, initial encounter; I25.10 Atherosclerotic heart disease of native coronary artery without angina pectoris; Z95.1 Presence of aortocoronary bypass graft; G62.9 Polyneuropathy, unspecified; E78.5 Hyperlipidemia, unspecified; R29.6 Repeated falls; Z91.199 Patient's noncompliance with other medical treatment and regimen due to unspecified reason; Z98.890 Other specified postprocedural states; Z79.82 Long term (current) use of aspirin; Z79.02 Long term (current) use of antithrombotics/antiplatelets; Z79.899 Other long term (current) drug therapy; Z87.891 Personal history of nicotine dependence
CPT/HCPCS: 37226; 73590; 75625; 75635; 75710; 76000; 80048; 80053; 80306; 80307; 82077; 85025; 85027; 93005; 97116; 97166; 97535; 99285; C1725; C1769; C1874; C1887; C1894; Q9967

== ENCOUNTER → 2024-03-08 12:47 | Outpatient (REF) | payer OTHER, SELFPAY | LOC: RAD 12:47 | PROVIDERS: ATTENDING PHYSICIAN Surgery Vascular Surgery | DX: I73.9 Peripheral vascular disease, unspecified (principal) | CPT/HCPCS: 93922; 93925 ==

== ENCOUNTER → 2024-04-27 14:19 | Outpatient (REF) | payer MEDICARE, SELFPAY | LOC: RAD 14:19 | PROVIDERS: ATTENDING PHYSICIAN Surgery Vascular Surgery; FAMILY PHYSICIAN Nurse Practitioner Primary Care | DX: I73.9 Peripheral vascular disease, unspecified (principal) | CPT/HCPCS: 93922; 93925 ==

== ENCOUNTER → 2024-10-11 14:19 | Outpatient (REF) | payer MEDICARE, SELFPAY | LOC: RAD 14:19 | PROVIDERS: ATTENDING PHYSICIAN Surgery Vascular Surgery; FAMILY PHYSICIAN Nurse Practitioner Primary Care | DX: I73.9 Peripheral vascular disease, unspecified (principal) | CPT/HCPCS: 93922; 93925 ==

== ENCOUNTER → 2024-10-20 13:09 | Outpatient (REF) | payer MEDICARE, SELFPAY | LOC: RAD 13:09 | PROVIDERS: ATTENDING PHYSICIAN Surgery Vascular Surgery; FAMILY PHYSICIAN Nurse Practitioner Primary Care | DX: I70.222 Atherosclerosis of native arteries of extremities with rest pain, left leg (principal) | CPT/HCPCS: 75635; Q9967 ==

== ENCOUNTER 2025-03-01 15:32 | Inpatient (IN) | payer MEDICARE, SELFPAY ==
[2025-03-01] VITALS (17 sets, daily range): BP systolic 81–190; BP diastolic 55–96; BMI 23.1
[2025-03-01] MEDS: MORPHINE SULFATE 4 MG IV ×2 (12:08→14:16)
[2025-03-01] MEDS: NSS 1800 ML IV (12:15)
[2025-03-01 12:43] LABS: Hematocrit 40.5 % (39.0-52.0); Hemoglobin 14.1 g/dL (13.0-18.0); Mean Corp Hgb Conc. 34.8 g/dL (33.0-37.0); Mean Corpuscular Volume 94.8 fL (80.0-94.0); Platelet Count 477 10^3/uL (130-400); Red Cell Dist. Width 12.1 % (11.5-14.5)
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
[2025-03-01 13:02] LABS: ALT (SGPT) 30 U/L (0-50); AST (SGOT) 30 U/L (17-59); Albumin 4.1 g/dl (3.5-5.0); Alkaline Phosphatase 109 U/L (38-126); Blood Urea Nitrogen 22 mg/dl (9-20); Calcium 10.1 mg/dl (8.4-10.2); Carbon Dioxide 19 mmol/L (22-30); Chloride 98 mmol/L (98-107); Estimated Creatinine Clearance 75 ml/min; Glucose 137 mg/dl (70-99); Potassium 4.2 mmol/L (3.5-5.1); Sodium 131 mmol/L (135-145); Total Protein 7.6 g/dl (6.3-8.2); eGFR > 60.00
[2025-03-01 13:11] LABS: Nucleated Red Blood Cells % 0 % (-)
[2025-03-01] MEDS: ZOSYN 50 IV ×2 (13:49→19:24)
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
[2025-03-01] MEDS: CLEOCIN 50 IV (14:15)
[2025-03-01] MEDS: ZOFRAN 4 MG IV (14:19)
[2025-03-01] MEDS: VANCOCIN 530 MG IV (14:55)
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
[2025-03-01] MEDS: NSS 500 IV (15:38)
[2025-03-01 16:06] LABS: C-Reactive Protein 82.80 mg/L (0.0-10.00)
[2025-03-01] MEDS: NSS 1000 IV (16:16)
--- NOTE | 2025-03-01 17:48 | PHA.VAN.IN ---
Assessment
- Assessment
Renal Function: Appears similar to baseline
Concomitant Antimicrobials: piperacillin/tazobactam
AUC Dosing Plan
- Dosing Variables
Dosing Weight (kg): 60.9
Dosing CrCl (ml/min): 75
Vd coefficient (L/kg): 0.7
- Empiric Dosing
Initial / Loading Dose: vanc 1500mg administered @ 1455
Maintenance Regimen: vanc 750mg Q12H
Estimated AUC (mcg*h/mL): 546
Estimated Peak (mcg*h/mL): 32
Estimated Trough (mcg/ml): 15.4
Estimated Half Life (H): 10.4
- Monitoring
No levels ordered at this time: consider levels in next few days
Pharmacokinetics Vancomycin I
- -
Patient Age: 60
Patient Sex: Male
Vancomycin Day #: 1
Indication: Skin And Soft Tissue
Requesting Provider: Aniyah Mathew
Pertinent Antimicrobial Allergies:
no pertinent antimicrobial allergies
Height / Weight:
Height 5 ft 4 in
Actual Weight 60.9 kg
- Vital Signs / Lab Results
Temp Pulse Resp BP Pulse Ox
99.9 F 101 22 87/69 98
03/01/25 16:38 03/01/25 17:32 03/01/25 17:32 03/01/25 17:32 03/01/25 16:38
Lab Results - Hematology
03/01/25
12:17
WBC 11.4 H
Lab Results - Chemistry
03/01/25
12:17
BUN 22 H
Creatinine 0.9
Estimated Creat Clear 75
Albumin 4.1
03/01/25 03/01/25
12:20 15:24
Lactic Acid 2.9 H 1.6
--- NOTE | 2025-03-01 18:02 | PTCARENOTE ---
Patient received into room 3347. Pt is aaox3, appears drowsy. On RA but pt has a moist cough with some scattered rhonchi. Pt with L posterior thigh DALILA drain with brown drainage. Pt reports pain with palpation of leg. He has scattered scabs and
bruising all over body. Pt reports frequent falls. MSAS as documented. IVF maintained. Labs sent. Pt's sister at bedside briefly but then left. Assessment, care and VS as charted.
[2025-03-01] MEDS: THIAMINE INJECTION 200 MG IV ×2 (18:35→23:55)
[2025-03-01] MEDS: NEURONTIN 800 MG PO ×2 (18:36→21:26)
[2025-03-01] MEDS: LUMINAL 97.2 MG PO ×2 (18:36→21:26)
[2025-03-01 18:50] LABS: Urine Character Clear (Clear)
[2025-03-01 19:00] LABS: Urine Red Blood Cell 0-2 /HPF (0-2); Urine Squamous Cell 0-2 /LPF (Few); Urine White Cell 0-2 /HPF (0-5)
--- NOTE | 2025-03-01 19:22 | CON.GS ---
Consultation
-
Date/Time Consultation Performed: 03/01/2025 1530
Performing Provider: Albert
Reason for Consultation: Left lower extremity soft tissue infection
Medical History
-
Chief Complaint: Left lower extremity pain and swelling
History of Present Illness:
Patient is a 60-year-old male who reports at least a 2-1/2-week history of worsening swelling and pain in the posterior left thigh region. He was reportedly seen in an urgent care clinic and prescribed doxycycline which he states he finished. He
began developing fevers and chills worsening pain and swelling and difficulty ambulating prompting emergency department evaluation today.
Past medical history is notable for hypertension hyperlipidemia, CAD PAD having undergone lower extremity bypass on the right side and left lower extremity stents. He is on aspirin and Plavix. His last dose of Plavix was about 48 hours ago.
Past Medical History
Past Medical History: Other (Hypertension, hyperlipidemia, coronary artery disease, peripheral arterial disease, peripheral neuropathy, alcohol dependence,)
Past Surgical History: Other (CABG, thumb surgery, right femoral-popliteal bypass, left lower extremity angiogram with stenting and angioplasty, left tibial shaft fracture repair and subsequent revision)
Social History
Tobacco: Smoker
Alcohol: Daily
Drug: Marijuana
Living: With Roomate
Family History
Family History: Reviewed & Noncontributory
Allergies / Home Medications
Allergy/AdvReac Type Severity Reaction Status Date / Time
No Known Allergies Allergy Verified 03/01/25 10:41
�Medication �Instructions �Recorded �Confirmed �Type
aspirin 81 mg tablet,delayed 81 mg PO DAILY Blood Clot 12/25/23 03/01/25 History
release Prevention/Tx
atorvastatin 40 mg tablet 40 mg PO DAILY High Cholesterol 12/25/23 03/01/25 History
clopidogrel 75 mg tablet 75 mg PO DAILY Blood Clot 12/25/23 03/01/25 History
Prevention/Tx
duloxetine 60 mg capsule,delayed 60 mg PO DAILY Depression 12/25/23 03/01/25 History
release
losartan 25 mg tablet 25 mg PO DAILY Blood Pressure 12/25/23 03/01/25 History
gabapentin 800 mg tablet 800 mg PO TID mild Pain 01/18/24 03/01/25 History
acetaminophen 325 mg tablet 650 mg PO Q6HPRN PRN mild pain 03/01/25 03/01/25 History
(Tylenol)
Review of Systems
-
History Source: Patient
All other systems: Negative unless noted
A 10 point review of systems was completed, and was negative except as per HPI.
Physical Exam
Vital Signs
Temp Pulse Resp BP Pulse Ox
99.9 F 101 22 87/69 98
03/01/25 19:16 03/01/25 17:32 03/01/25 17:32 03/01/25 17:32 03/01/25 16:38
02/28/25 03/01/25 03/02/25
06:59 06:59 06:59
Actual Weight 60.9 kg
Body Mass Index (BMI) 23.1
Lab Results
03/01/25 12:17
03/01/25 12:17
WBC 11.4 10^3/uL (4.8-10.8) H 03/01/25 12:17
Hgb 14.1 g/dL (13.0-18.0) 03/01/25 12:17
Hct 40.5 % (39.0-52.0) 03/01/25 12:17
Plt Count 477 10^3/uL (130-400) H 03/01/25 12:17
Abs Immat Gran (auto) 0.1 10^3/uL (0-0.05) H 03/01/25 12:17
Neutrophils % 83.4 % (42.2-75.2) H 03/01/25 12:17
Physical Exam
General: Well Developed, Well Nourished, No Apparent Distress and Comfortable
HEENT: Normocephalic, Anicteric and Moist Mucous Membranes
Respiratory: Non Labored Respirations
Cardiac: Regular Rhythm
Musculoskeletal: Other (Posterior left thigh erythema skin warm to touch. Large area of fluctuance and induration. Open skin wounds or drainage. Neurovascularly intact.)
Skin: Warm
Neuro: AO x 3
Psych: Calm
Data Reviewed
-
CT Scan: Image Personally Visualized and interpreted, Report Reviewed by me, Discussed with Physician, Discussed with Patient and Discussed with Family
Assessment / Plan
-
Assessment: 60-year-old male presenting with a large left lower extremity posterior thigh intramuscular and subcutaneous abscess/fluid collection. This appears to be subacute or potentially chronic going on for at least 2-1/2 weeks if not longer.
CT imaging shows a large fluid collection in extending into the posterior thigh compartment hamstring muscles and adductors
Given the extensiveness of this infection but well-defined borders and what appears to be more simple fluid then complex as well as the presence of active antiplatelet agent medications (Plavix and aspirin) discussed with patient initially pursuing
IR guided drainage as a temporizing measure to possible future surgical debridement or drainage after Plavix washout. If however patient happens to respond adequately to IR guided drainage surgical debridement/drainage may not be required.
Plan: Discussed with IR -drainage procedure today
Continue IV fluids, broad-spectrum antibiotics awaiting culture data
Hold Plavix; okay to utilize aspirin
Will follow and reassess for potential surgical debridement pending on adequacy of source control with IR drain.
[2025-03-01 20:25] LABS: GGTP 69 U/L (15-73); Magnesium 1.4 mg/dl (1.6-2.3)
[2025-03-01] MEDS: MORPHINE SULFATE 2 MG IV (20:43)
[2025-03-01 22:21] LABS: INR 1.11; PT 14.8 Sec (11.4-14.6)
[2025-03-01 22:22] LABS: APTT 28.8 Sec (23.4-35.0)
[2025-03-02] VITALS (16 sets, daily range): BP systolic 86–136; BP diastolic 57–81
[2025-03-02] MEDS: NSS 1000 IV ×3 (02:01→23:28)
[2025-03-02] MEDS: ZOSYN 50 IV ×4 (02:01→19:47)
--- NOTE | 2025-03-02 02:54 | PTCARENOTE ---
NO acute events overnight. Highest MSAS of 2. PRN morphine given for pain at DALILA drain site with positive results. Brown purulent output from drain. IVF and IV abx infusing as ordered. Will continue to monitor.
[2025-03-02 04:46] LABS: Hematocrit 28.1 % (39.0-52.0); Hemoglobin 9.9 g/dL (13.0-18.0); Mean Corp Hgb Conc. 35.2 g/dL (33.0-37.0); Mean Corpuscular Volume 94.6 fL (80.0-94.0); Platelet Count 316 10^3/uL (130-400); Red Cell Dist. Width 12.2 % (11.5-14.5)
[2025-03-02 05:06] LABS: Blood Urea Nitrogen 18 mg/dl (9-20); Calcium 8.3 mg/dl (8.4-10.2); Carbon Dioxide 18 mmol/L (22-30); Chloride 107 mmol/L (98-107); Estimated Creatinine Clearance 84 ml/min; Glucose 96 mg/dl (70-99); Potassium 3.9 mmol/L (3.5-5.1); Sodium 132 mmol/L (135-145); eGFR > 60.00
[2025-03-02] MEDS: VANCOCIN 150 IV ×2 (05:24→17:44)
--- NOTE | 2025-03-02 08:22 | PHA.VAN.FU ---
Addendum entered and electronically signed by Jinny Levy [facility] 03/02/25 08:32:
Agree with assessment and plan
Original Note:
Vancomycin Assessment / Plan
- Assessment
Renal Function: Stable
WBC's are: WNL
In the past 24 hrs, patient has been: Afebrile
Concomitant Antimicrobials: piperacillin/tazobactam
- Dosing Plan
Continue: 750mg q12h
- Monitoring Plan
No level(s) ordered at this time: consider within next few days as pt approaches steady state
- Follow Up
Pharmacy will continue to follow.
Vancomycin Follow UP
- -
Patient Age: 60
Patient Sex: Male
Vancomycin Day #: 2
Indication: Skin And Soft Tissue
Requesting Provider: Aniyah Mathew
Pertinent Antimicrobial Allergies:
no pertinent antimicrobial allergies
Height / Weight:
Height 5 ft 4 in
Actual Weight 60.9 kg
- Vital Signs / Lab Results
Temp Pulse Resp BP Pulse Ox
98.2 F 65 15 113/57 97
03/02/25 02:39 03/02/25 06:00 03/02/25 06:00 03/02/25 06:00 03/02/25 06:00
Lab Results - Hematology
03/01/25 03/02/25
12:17 04:22
WBC 11.4 H 7.4
Lab Results - Chemistry
03/01/25 03/02/25
12:17 04:22
BUN 22 H 18
Creatinine 0.9 0.8
Estimated Creat Clear 75 84
Albumin 4.1
03/01/25 03/01/25
12:20 15:24
Lactic Acid 2.9 H 1.6
Lab Results - Urine
03/01/25
18:05
Urine Nitrite Negative
Ur Leukocyte Esterase Negative
Urine WBC 0-2
Ur Squamous Epith Cells 0-2
Urine Bacteria Moderate A
Microbiology Results
03/01/25 17:12 Gram Stain - Preliminary
Abscess
[2025-03-02] MEDS: NICODERM TRANSDERMAL 21 MG TRANSDERM (09:15)
[2025-03-02] MEDS: FOLVITE 1 MG PO (09:16)
[2025-03-02] MEDS: THIAMINE INJECTION 200 MG IV ×3 (09:16→23:30)
[2025-03-02] MEDS: COZAAR 25 MG PO (09:16)
[2025-03-02] MEDS: LIPITOR 40 MG PO (09:19)
[2025-03-02] MEDS: CYMBALTA DELAYED RELEASE 60 MG PO (09:19)
[2025-03-02] MEDS: NEURONTIN 800 MG PO ×3 (09:19→21:08)
[2025-03-02] MEDS: LUMINAL 97.2 MG PO ×3 (09:19→21:08)
[2025-03-02] MEDS: ASPIR LOW (ENTERIC COATED) 81 MG PO (09:20)
[2025-03-02] MEDS: MORPHINE SULFATE 2 MG IV (09:25)
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
[2025-03-02] MEDS: ROXICODONE 10 MG PO ×2 (11:50→16:52)
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
[2025-03-02] MEDS: MAGNESIUM SULFATE 50 IV (13:10)
[2025-03-02 14:39] LABS: Hematocrit 29.3 % (39.0-52.0); Hemoglobin 10.3 g/dL (13.0-18.0)
--- NOTE | 2025-03-02 14:46 | W.PN.HOSP.TC ---
Today's Communication/Plan
-
f/u wound cs report
maintain on empiric abx
Monitor for alcohol withdrawal
Assessment / Plan
Assessment / Plan
Left leg CT
There is a large gas and fluid containing thick-walled collection measuring up to 23 cm extending from the adductor musculature at the level of the lesser trochanter throughout the posterior thigh and which appears to involve the semimembranosus and
semitendinosis musculature.. There is overlying soft tissue stranding consistent with infection. Recommend surgical consultation.
There is a small focus of stranding within the superficial left groin with an underlying 1.0 cm mildly hypodense focus within the proximal left sartorius which may represent a healing superficial wound.

# Left thigh infected hematoma vs abscess
# Sepsis
- Leukocytosis/tachycardia at ER. Elevated lactic acid
-CT of leg showing very large gas and fluid containing thick wall fluid collection extending 23 cm in the thigh, see report above
-Patient afebrile. Blood culture collected to rule out bacteremia
-Patient remained IRAD guided drainage which is growing mixed gram-positive/gram-negative organism
-Currently on empiric vancomycin and Zosyn, ID help appreciated
-General Surgery following along and will consider possible debridement if not improved
# Alcohol use disorder
Monitor for alcohol withdrawal
-reports 6 beers and glass of wine daily (sister reports likely 12 beers daily)
-Hx alcohol withdraw with complications
-last drink reported by patient 2 days ago, although sister reports he brought one in car and she would not let him have it
-Maintained on phenobarbital/ativan for now
-F/u MSAS score.
# Substance use
- Patient urine drug screen is positive for marijuana
#Essential hypertension
- continue losartan
#hyperlipidemia
#CAD
#PAD
- continue aspirin and atorvastatin
- hold clopidogrel pending possible OR
#peripheral neuropathy
- continue gabapentin
#Hyponatremia
-monitor
Code status: full code
DVT prophylaxis: SCDs
Care plan discussed with infection disease/general surgery
Total time spent 54 minutes
Anticipated Discharge: > 48 hours
Subjective/Interval History
-
Date of Service: March 02, 2025
Complaining of left thigh pain
Denies feeling anxious/tremulous
No abdominal pain/nausea/vomiting
Objective Data
-
Labs:
Laboratory Results
03/02/25 03/02/25
04:22 14:22
WBC 7.4
Hgb 9.9 L D 10.3 L
Hct 28.1 L 29.3 L
Plt Count 316 D
Sodium 132 L
Potassium 3.9
Chloride 107
Carbon Dioxide 18 L
BUN 18
Creatinine 0.8
Glucose 96
Calcium 8.3 L D
Vital Signs:
Vital Signs
Temp Pulse Resp BP Pulse Ox
98.5 F 82 21 126/71 98
03/02/25 11:51 03/02/25 10:13 03/02/25 10:13 03/02/25 10:13 03/02/25 10:13
I&O
03/01/25 03/02/25 03/03/25
06:59 06:59 06:59
Intake Total 2195 / 2195
Output Total 1400 / 1400 920 / 920
Balance 795 / 795 -920 / -920
Review of Systems
-
Respiratory: Reports No Symptoms
Cardiac: Reports No Symptoms
Physical Exam
-
General: Pain; Negative Appears in Distress
HEENT: Negative Oxygen
GI: Soft, Nontender and Nondistended
Musculoskeletal: Other (Left thigh swelling)
Neuro: Awake, Alert, Oriented and No Motor Deficits
[2025-03-02] MEDS: LOVENOX 40 MG SC (17:43)
[2025-03-02] MEDS: ROXICODONE 5 MG PO (19:51)
--- NOTE | 2025-03-02 19:55 | PTCARENOTE ---
Assumed care of Pt after change of shift report. Pt is AAOx3. using call light appropriately. NSR on monitor, HR 70 bpm. Jorge drain present to posterior left thigh, draining serosang fluid. dressing clean dry and intact. call light in reach.
assessment as documented.
[2025-03-02] MEDS: DILAUDID 0.5 MG IV (23:29)
[2025-03-03] VITALS (9 sets, daily range): BP systolic 94–142; BP diastolic 60–92
[2025-03-03] MEDS: ZOSYN 50 IV ×4 (03:20→20:40)
[2025-03-03] MEDS: DILAUDID 0.5 MG IV (04:58)
[2025-03-03] MEDS: VANCOCIN 150 IV (05:16)
[2025-03-03 05:45] LABS: Hematocrit 28.3 % (39.0-52.0); Hemoglobin 10.0 g/dL (13.0-18.0); Mean Corp Hgb Conc. 35.3 g/dL (33.0-37.0); Mean Corpuscular Volume 96.6 fL (80.0-94.0); Platelet Count 344 10^3/uL (130-400); Red Cell Dist. Width 12.2 % (11.5-14.5)
[2025-03-03 05:59] LABS: Blood Urea Nitrogen 19 mg/dl (9-20); Calcium 8.4 mg/dl (8.4-10.2); Carbon Dioxide 20 mmol/L (22-30); Chloride 108 mmol/L (98-107); Estimated Creatinine Clearance 75 ml/min; Glucose 91 mg/dl (70-99); Magnesium 2.1 mg/dl (1.6-2.3); Potassium 4.1 mmol/L (3.5-5.1); Sodium 134 mmol/L (135-145); eGFR > 60.00
[2025-03-03] MEDS: LUMINAL 97.2 MG PO (08:19)
[2025-03-03] MEDS: FOLVITE 1 MG PO (08:20)
[2025-03-03] MEDS: NEURONTIN 800 MG PO ×3 (08:20→22:04)
[2025-03-03] MEDS: LIPITOR 40 MG PO (08:21)
[2025-03-03] MEDS: CYMBALTA DELAYED RELEASE 60 MG PO (08:21)
[2025-03-03] MEDS: COZAAR 25 MG PO (08:22)
[2025-03-03] MEDS: ASPIR LOW (ENTERIC COATED) 81 MG PO (08:22)
[2025-03-03] MEDS: NICODERM TRANSDERMAL TRANSDERM (08:23)
[2025-03-03] MEDS: THIAMINE INJECTION 200 MG IV ×2 (08:24→15:15)
[2025-03-03] MEDS: ROXICODONE 10 MG PO ×2 (09:19→14:24)
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
--- NOTE | 2025-03-03 12:50 | W.PN.HOSP.TC ---
Today's Communication/Plan
-
f/u wound cs report
maintain on empiric abx
Continue phenobarb protocol
Downgrade to MedSurg
Assessment / Plan
Assessment / Plan
Left leg CT
There is a large gas and fluid containing thick-walled collection measuring up to 23 cm extending from the adductor musculature at the level of the lesser trochanter throughout the posterior thigh and which appears to involve the semimembranosus and
semitendinosis musculature.. There is overlying soft tissue stranding consistent with infection. Recommend surgical consultation.
There is a small focus of stranding within the superficial left groin with an underlying 1.0 cm mildly hypodense focus within the proximal left sartorius which may represent a healing superficial wound.

# Left thigh infected hematoma vs abscess
# Sepsis
- Leukocytosis/tachycardia at ER. Elevated lactic acid
-CT of leg showing very large gas and fluid containing thick wall fluid collection extending 23 cm in the thigh, see report above
-Patient afebrile. Blood culture collected to rule out bacteremia
-Status post IRAD guided drainage of 325 cc purulent material. DALILA drain in place
-Wound culture growing Klebsiella/Enterococcus/Staphylococcus.
-Currently on empiric vancomycin and Zosyn, ID help appreciated
-General Surgery following along and will consider possible debridement if not improved
# Alcohol use disorder
Monitor for alcohol withdrawal
-reports 6 beers and glass of wine daily (sister reports likely 12 beers daily)
-Hx alcohol withdraw with complications
-last drink reported by patient 2 days ago, although sister reports he brought one in car and she would not let him have it
-Maintained on phenobarbital/ativan for now
-F/u MSAS score.
# Substance use
- Patient urine drug screen is positive for marijuana
#Essential hypertension
- continue losartan
#hyperlipidemia
#CAD
#PAD
- continue aspirin and atorvastatin
- hold clopidogrel pending possible OR
#peripheral neuropathy
- continue gabapentin
#Hyponatremia
-monitor
Code status: full code
DVT prophylaxis: SCDs
Anticipated Discharge: > 48 hours
Subjective/Interval History
-
Date of Service: March 03, 2025
Complaining of some left thigh pain
No signs of alcohol withdrawal
No other issues reported
Objective Data
-
Labs:
Laboratory Results
03/03/25
05:11
WBC 6.4
Hgb 10.0 L
Hct 28.3 L
Plt Count 344
Sodium 134 L
Potassium 4.1
Chloride 108 H
Carbon Dioxide 20 L
BUN 19
Creatinine 0.9
Glucose 91
Calcium 8.4
Vital Signs:
Vital Signs
Temp Pulse Resp BP Pulse Ox
98.2 F 75 21 136/92 99
03/03/25 07:56 03/03/25 10:00 03/03/25 10:00 03/03/25 08:00 03/03/25 10:00
I&O
03/02/25 03/03/25 03/04/25
06:59 06:59 06:59
Intake Total 2195 / 2195 1935 / 1935
Output Total 1400 / 1400 980 / 980
Balance 795 / 795 955 / 955
Review of Systems
-
Respiratory: Reports No Symptoms
Cardiac: Reports No Symptoms
Abdomen/GI: Reports No Symptoms
Physical Exam
-
General: Pain; Negative Appears in Distress
HEENT: Negative Oxygen
GI: Soft, Nontender and Nondistended
Musculoskeletal: Other (Left thigh swelling)
Neuro: Awake, Alert, Oriented and No Motor Deficits
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
[2025-03-03] MEDS: NSS IV ×2 (14:23→14:34)
[2025-03-03] MEDS: NSS 1000 IV (14:35)
[2025-03-03] MEDS: LUMINAL 64.8 MG PO ×2 (15:14→22:04)
[2025-03-03] MEDS: TORADOL 15 MG IV ×2 (15:15→21:07)
[2025-03-03] MEDS: PROTONIX 40 MG PO (15:15)
[2025-03-03] MEDS: LOVENOX 40 MG SC (17:45)
[2025-03-03] MEDS: ROXICODONE 5 MG PO (18:09)
[2025-03-04] MEDS: THIAMINE INJECTION 200 MG IV ×2 (01:19→09:20)
[2025-03-04] MEDS: ZOSYN 50 IV ×2 (01:20→09:18)
[2025-03-04] MEDS: TORADOL 15 MG IV ×4 (02:36→19:54)
[2025-03-04] MEDS: NSS 1000 IV ×2 (02:36→09:24)
[2025-03-04] MEDS: ROXICODONE 10 MG PO ×2 (05:40→20:04)
[2025-03-04 06:49] LABS: Hematocrit 30.2 % (39.0-52.0); Hemoglobin 10.5 g/dL (13.0-18.0); Mean Corp Hgb Conc. 34.8 g/dL (33.0-37.0); Mean Corpuscular Volume 98.4 fL (80.0-94.0); Platelet Count 357 10^3/uL (130-400); Red Cell Dist. Width 11.9 % (11.5-14.5)
[2025-03-04 07:00] VITALS: BP 129/74
[2025-03-04 07:17] LABS: Blood Urea Nitrogen 16 mg/dl (9-20); Calcium 8.2 mg/dl (8.4-10.2); Carbon Dioxide 24 mmol/L (22-30); Chloride 109 mmol/L (98-107); Estimated Creatinine Clearance 67 ml/min; Glucose 92 mg/dl (70-99); Potassium 4.3 mmol/L (3.5-5.1); Sodium 136 mmol/L (135-145); eGFR > 60.00
[2025-03-04] MEDS: ROXICODONE 5 MG PO (09:19)
[2025-03-04] MEDS: LIPITOR 40 MG PO (09:20)
[2025-03-04] MEDS: COZAAR 25 MG PO (09:20)
[2025-03-04] MEDS: PROTONIX 40 MG PO (09:20)
[2025-03-04] MEDS: FOLVITE 1 MG PO (09:20)
[2025-03-04] MEDS: NICODERM TRANSDERMAL 21 MG TRANSDERM (09:20)
[2025-03-04] MEDS: CYMBALTA DELAYED RELEASE 60 MG PO (09:21)
[2025-03-04] MEDS: LUMINAL 64.8 MG PO ×3 (09:21→21:13)
[2025-03-04] MEDS: NEURONTIN 800 MG PO ×3 (09:21→21:13)
[2025-03-04] MEDS: ASPIR LOW (ENTERIC COATED) 81 MG PO (09:22)
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
--- NOTE | 2025-03-04 13:53 | W.PN.HOSP.TC ---
Today's Communication/Plan
-
Repeat lower extremity imaging per GS
maintain on abx
f/u wound cs report
continue phenobarb protocol
Assessment / Plan
Assessment / Plan
Left leg CT
There is a large gas and fluid containing thick-walled collection measuring up to 23 cm extending from the adductor musculature at the level of the lesser trochanter throughout the posterior thigh and which appears to involve the semimembranosus and
semitendinosis musculature.. There is overlying soft tissue stranding consistent with infection. Recommend surgical consultation.
There is a small focus of stranding within the superficial left groin with an underlying 1.0 cm mildly hypodense focus within the proximal left sartorius which may represent a healing superficial wound.

# Left thigh infected hematoma vs abscess
# Sepsis
- Leukocytosis/tachycardia at ER. Elevated lactic acid
-CT of leg showing very large gas and fluid containing thick wall fluid collection extending 23 cm in the thigh, see report above
-Patient afebrile. Blood culture collected to rule out bacteremia
-Status post IRAD guided drainage of 325 cc purulent material. DALILA drain in place - drained ~ 110 ml in last 24hrs, getting clearer.
-Wound culture growing Klebsiella/Enterococcus/Staphylococcus -susceptibility pending
-Currently on empiric vancomycin and Zosyn, ID help appreciated
-General Surgery following along and will consider possible debridement if not improved
# Alcohol use disorder
Monitor for alcohol withdrawal
-reports 6 beers and glass of wine daily (sister reports likely 12 beers daily)
-Hx alcohol withdraw with complications
-last drink reported by patient 2 days ago, although sister reports he brought one in car and she would not let him have it
-Maintained on phenobarbital/ativan for now
-F/u MSAS score.
# Substance use
- Patient urine drug screen is positive for marijuana
#Essential hypertension
- continue losartan
#hyperlipidemia
#CAD
#PAD
- continue aspirin and atorvastatin
- hold clopidogrel pending possible OR
#peripheral neuropathy
- continue gabapentin
#Hyponatremia
-monitor
Code status: full code
DVT prophylaxis: SCDs
Anticipated Discharge: > 48 hours
Subjective/Interval History
-
Date of Service: March 04, 2025
Complaint of thigh pain
no fever overnight
Objective Data
-
Labs:
Laboratory Results
03/04/25
05:59
WBC 6.8
Hgb 10.5 L
Hct 30.2 L
Plt Count 357
Sodium 136
Potassium 4.3
Chloride 109 H
Carbon Dioxide 24
BUN 16
Creatinine 1.0
Glucose 92
Calcium 8.2 L
Vital Signs:
Vital Signs
Temp Pulse Resp BP Pulse Ox
97.6 F 71 16 129/74 99
03/04/25 07:00 03/04/25 09:20 03/04/25 07:00 03/04/25 09:20 03/04/25 09:20
I&O
03/03/25 03/04/25 03/05/25
06:59 06:59 06:59
Intake Total 1934 / 1934 3245 / 3245
Output Total 980 / 980 1660 / 1660
Balance 955 / 955 1585 / 1585
Review of Systems
-
Respiratory: Reports No Symptoms
Cardiac: Reports No Symptoms
Abdomen/GI: Reports No Symptoms
Physical Exam
-
General: Pain; Negative Appears in Distress
HEENT: Negative Oxygen
GI: Soft, Nontender and Nondistended
Musculoskeletal: Other (Left thigh swelling)
Neuro: Awake, Alert, Oriented and No Motor Deficits
[2025-03-04 15:00] VITALS: BP 123/73
[2025-03-04] MEDS: LOVENOX 40 MG SC (17:16)
[2025-03-04] MEDS: UNASYN IV (17:17)
[2025-03-04] MEDS: VITAMIN B1 100 MG PO (19:54)
[2025-03-04 23:21] VITALS: BP 99/68
[2025-03-05] MEDS: TORADOL 15 MG IV ×4 (03:53→20:37)
[2025-03-05] MEDS: UNASYN IV ×4 (05:06→17:21)
[2025-03-05 07:37] LABS: Hematocrit 29.6 % (39.0-52.0); Hemoglobin 10.2 g/dL (13.0-18.0); Mean Corp Hgb Conc. 34.5 g/dL (33.0-37.0); Mean Corpuscular Volume 96.7 fL (80.0-94.0); Platelet Count 346 10^3/uL (130-400); Red Cell Dist. Width 12.0 % (11.5-14.5)
[2025-03-05 07:41] VITALS: BP 146/80
[2025-03-05] MEDS: LIPITOR 40 MG PO (08:00)
[2025-03-05 08:04] LABS: Blood Urea Nitrogen 14 mg/dl (9-20); Calcium 8.3 mg/dl (8.4-10.2); Carbon Dioxide 23 mmol/L (22-30); Chloride 108 mmol/L (98-107); Estimated Creatinine Clearance 84 ml/min; Glucose 88 mg/dl (70-99); Potassium 4.2 mmol/L (3.5-5.1); Sodium 135 mmol/L (135-145); eGFR > 60.00
[2025-03-05] MEDS: CYMBALTA DELAYED RELEASE 60 MG PO (08:10)
[2025-03-05] MEDS: VITAMIN B1 100 MG PO ×2 (08:10→20:37)
[2025-03-05] MEDS: PROTONIX 40 MG PO (08:10)
[2025-03-05] MEDS: ASPIR LOW (ENTERIC COATED) 81 MG PO (08:17)
[2025-03-05] MEDS: NICODERM TRANSDERMAL 21 MG TRANSDERM (08:18)
[2025-03-05] MEDS: NEURONTIN 800 MG PO ×3 (08:18→22:14)
[2025-03-05] MEDS: FOLVITE 1 MG PO (08:18)
[2025-03-05] MEDS: LUMINAL 64.8 MG PO (08:19)
[2025-03-05] MEDS: COZAAR 25 MG PO (08:19)
[2025-03-05] MEDS: ROXICODONE 10 MG PO (08:28)
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
--- NOTE | 2025-03-05 10:17 | CM ---
Addendum entered by Kriss Farris RN 03/05/25 14:33:
Spoke with patient at bedside Offered VN he requested [facility] Liaison notified.
Pt said he follow up with [facility] at home.
PLAN Home with [facility]
Original Note:
Continues on IV antibiotics.
Pt has Drain DALILA .
Received consult to set up VN
PT OT ordered today by MD.
Johny from [facility] notified to see patient.
PLAN Assess PT OT eval and ID plan for dc planning
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
--- NOTE | 2025-03-05 11:48 | W.PN.HOSP.TC ---
Today's Communication/Plan
-
Monitor vital signs see plan
PT
Pain control
Maintain DALILA drain
Continue Unasyn per ID
Restart Plavix
Assessment / Plan
Assessment / Plan
Left leg CT
There is a large gas and fluid containing thick-walled collection measuring up to 23 cm extending from the adductor musculature at the level of the lesser trochanter throughout the posterior thigh and which appears to involve the semimembranosus and
semitendinosis musculature.. There is overlying soft tissue stranding consistent with infection. Recommend surgical consultation.
There is a small focus of stranding within the superficial left groin with an underlying 1.0 cm mildly hypodense focus within the proximal left sartorius which may represent a healing superficial wound.

# Left thigh infected hematoma vs abscess
# Sepsis
- Leukocytosis/tachycardia at ER. Elevated lactic acid
-CT of leg showing very large gas and fluid containing thick wall fluid collection extending 23 cm in the thigh, see report above
-Patient afebrile. Blood culture collected to rule out bacteremia
-Status post IRAD guided drainage of 325 cc purulent material. Continue with DALILA drain, monitor output
-Wound culture growing Klebsiella/Enterococcus/Staphylococcus; antibiotics per ID
-General Surgery following, repeat CT with near resolution of abscess. Patient will follow-up with surgery outpatient.
# Alcohol use disorder
Monitor for alcohol withdrawal
-reports 6 beers and glass of wine daily (sister reports likely 12 beers daily)
-Hx alcohol withdraw with complications
-last drink reported by patient 2 days ago, although sister reports he brought one in car and she would not let him have it
-Maintained on phenobarbital/ativan for now
-F/u MSAS score.
# Substance use
- Patient urine drug screen is positive for marijuana
#Essential hypertension
- continue losartan
#hyperlipidemia
#CAD
#PAD
- continue aspirin and atorvastatin
- Restart Plavix which was okayed by neurosurgery
#peripheral neuropathy
- continue gabapentin
#Hyponatremia
-monitor, resolved
Code status: full code
DVT prophylaxis: Lovenox
General: Pain; Negative Appears in Distress
HEENT: Negative Oxygen
GI: Soft, Nontender and Nondistended
Musculoskeletal: Other (Left thigh swelling) with drain
Neuro: Awake, Alert, Oriented and No Motor Deficits
Anticipated Discharge: 24 - 48 hours
Subjective/Interval History
-
Date of Service: March 05, 2025
Denies nausea
Objective Data
-
Labs:
Laboratory Results
03/05/25
06:17
WBC 7.4
Hgb 10.2 L
Hct 29.6 L
Plt Count 346
Sodium 135
Potassium 4.2
Chloride 108 H
Carbon Dioxide 23
BUN 14
Creatinine 0.8
Glucose 88
Calcium 8.3 L
Vital Signs:
Vital Signs
Temp Pulse Resp BP Pulse Ox
98.3 F 79 16 146/80 98
03/05/25 07:41 03/05/25 08:19 03/05/25 07:41 03/05/25 08:19 03/05/25 08:00
I&O
03/04/25 03/05/25 03/06/25
06:59 06:59 06:59
Intake Total 3245 / 3245 1320 / 1320
Output Total 1660 / 1660 1994
Balance 1585 / 1585 -675 / -675
[2025-03-05 11:56] VITALS: BP 187/109; PULSE 97; O2SAT 100
[2025-03-05] MEDS: PLAVIX 75 MG PO (12:11)
--- NOTE | 2025-03-05 15:20 | VNURNOTE ---
Home Health Liaison spoke with patient to discuss [facility] nurse/therapy, visits, schedule and homebound status. Patient is agreeable and understands that visits at home will be 2-3 x per week to assess and teach medical management. Patient aware
and agreeable to pet policy, he has a dog at home. He states that he will be staying at [address] [facility]
Patient stated he has not seen PCP in > 1 year, He is aware that [facility] will contact them for start of care in 1-2 days after discharge from - however, [facility] will not be able to see him until he is seen by PCP. He understands to make PCP appt
PASCUAL. Provided contact number for [facility].
[facility] referral completed in [facility].
[2025-03-05 15:53] VITALS: BP 122/68
[2025-03-05] MEDS: LUMINAL 32.4 MG PO ×2 (16:34→22:15)
[2025-03-05] MEDS: ROXICODONE 15 MG PO ×2 (16:39→22:15)
[2025-03-05] MEDS: LOVENOX 40 MG SC (17:22)
[2025-03-05 23:51] VITALS: BP 100/68
[2025-03-06] MEDS: UNASYN IV ×3 (00:46→12:08)
[2025-03-06] MEDS: TORADOL 15 MG IV ×2 (03:01→09:17)
[2025-03-06] MEDS: ROXICODONE 15 MG PO (05:07)
--- NOTE | 2025-03-06 05:41 | PTCARENOTE ---
Patient states he had a bad dream and was kicking in his sleep. Concerned about pulling out his posterior left thigh DALILA drain. Small amount of blood noted on border foam as well as split gauze that was reinforced at the beginning of shift. Split
gauze redressed. Patient states 10/10 burning pain to posterior left thigh, PRN vannesa given as ordered. DALILA drain output serosanguineous and draining well. ORDER BUILDER LOADER aware. Plan of care ongoing.
[2025-03-06 07:00] VITALS: BP 139/78
[2025-03-06 07:56] LABS: Hematocrit 29.8 % (39.0-52.0); Hemoglobin 10.0 g/dL (13.0-18.0); Mean Corp Hgb Conc. 33.6 g/dL (33.0-37.0); Mean Corpuscular Volume 97.4 fL (80.0-94.0); Nucleated Red Blood Cells % 0 % (-); Platelet Count 350 10^3/uL (130-400); Red Cell Dist. Width 12.1 % (11.5-14.5)
[2025-03-06 08:17] LABS: Blood Urea Nitrogen 13 mg/dl (9-20); Calcium 8.3 mg/dl (8.4-10.2); Carbon Dioxide 26 mmol/L (22-30); Chloride 108 mmol/L (98-107); Estimated Creatinine Clearance 96 ml/min; Glucose 82 mg/dl (70-99); Potassium 4.3 mmol/L (3.5-5.1); Sodium 138 mmol/L (135-145); eGFR > 60.00
[2025-03-06] MEDS: CYMBALTA DELAYED RELEASE 60 MG PO (08:26)
[2025-03-06] MEDS: LIPITOR 40 MG PO (08:26)
[2025-03-06] MEDS: VITAMIN B1 100 MG PO (08:26)
[2025-03-06] MEDS: FOLVITE 1 MG PO (08:26)
[2025-03-06] MEDS: PROTONIX 40 MG PO (08:26)
[2025-03-06] MEDS: ASPIR LOW (ENTERIC COATED) 81 MG PO (08:26)
[2025-03-06] MEDS: COZAAR 25 MG PO (08:26)
[2025-03-06] MEDS: NEURONTIN 800 MG PO (08:27)
[2025-03-06] MEDS: NICODERM TRANSDERMAL 21 MG TRANSDERM (08:27)
[2025-03-06] MEDS: LUMINAL 32.4 MG PO (08:27)
[2025-03-06] MEDS: PLAVIX 75 MG PO (08:31)
--- NOTE | 2025-03-06 11:01 | CM ---
Pt requested [facility] Sara Liaison notified.
Pt to follow up with PCP See [facility] note.
Pt said he follow up with [facility] at home.
Continues on IV antibiotics.
Pt has Drain DALILA .
Pt declined BCARES at this time.
Pt sister is supportive .
[facility]
--- NOTE | 2025-03-06 11:45 | W.PN.HOSP.TC ---
Addendum entered and electronically signed by Rios Sanchez MD 03/07/25 13:59:
Severe sepsis
Original Note:
Today's Communication/Plan
-
Monitor vital signs
see plan
Pain control
Discussed with surgery, okay to discharge today with outpatient follow-up with drain
Augmentin on discharge
Time of discharge 38 minutes
Assessment / Plan
Assessment / Plan
Left leg CT
There is a large gas and fluid containing thick-walled collection measuring up to 23 cm extending from the adductor musculature at the level of the lesser trochanter throughout the posterior thigh and which appears to involve the semimembranosus and
semitendinosis musculature.. There is overlying soft tissue stranding consistent with infection. Recommend surgical consultation.
There is a small focus of stranding within the superficial left groin with an underlying 1.0 cm mildly hypodense focus within the proximal left sartorius which may represent a healing superficial wound.

# Left thigh infected hematoma vs abscess
# Sepsis
- Leukocytosis/tachycardia at ER. Elevated lactic acid
-CT of leg showing very large gas and fluid containing thick wall fluid collection extending 23 cm in the thigh, see report above
-Patient afebrile. Blood culture collected to rule out bacteremia
-Status post IRAD guided drainage of 325 cc purulent material. Continue with DALILA drain, monitor output. Discussed with surgery, okay to discharge today with outpatient follow-up
-Wound culture growing Klebsiella/Enterococcus/Staphylococcus; antibiotics per ID. Augmentin on discharge
-General Surgery following, repeat CT with near resolution of abscess. Patient will follow-up with surgery outpatient.
# Alcohol use disorder
Monitor for alcohol withdrawal
-reports 6 beers and glass of wine daily (sister reports likely 12 beers daily)
-Hx alcohol withdraw with complications
-last drink reported by patient 2 days ago, although sister reports he brought one in car and she would not let him have it
-Maintained on phenobarbital/ativan for now. DC further phenobarbital on discharge. Has not required Ativan
# Substance use
- Patient urine drug screen is positive for marijuana
#Essential hypertension
- continue losartan
#hyperlipidemia
#CAD
#PAD
- continue aspirin and atorvastatin
- Restarted Plavix which was okayed by surgery
#peripheral neuropathy
- continue gabapentin
#Hyponatremia
-monitor, resolved
Code status: full code
DVT prophylaxis: Lovenox
General: Pain; Negative Appears in Distress
HEENT: Negative Oxygen
GI: Soft, Nontender and Nondistended
Musculoskeletal: Other (Left thigh swelling) with drain
Neuro: Awake, Alert, Oriented and No Motor Deficits
Anticipated Discharge: Today
Subjective/Interval History
-
Date of Service: March 06, 2025
denies nausea
Objective Data
-
Labs:
Laboratory Results
03/06/25
06:14
WBC 8.4
Hgb 10.0 L
Hct 29.8 L
Plt Count 350
Sodium 138
Potassium 4.3
Chloride 108 H
Carbon Dioxide 26
BUN 13
Creatinine 0.7
Glucose 82
Calcium 8.3 L
Vital Signs:
Vital Signs
Temp Pulse Resp BP Pulse Ox
97.6 F 76 12 139/78 98
03/06/25 07:00 03/06/25 08:26 03/06/25 07:00 03/06/25 08:26 03/06/25 08:30
I&O
03/05/25 03/06/25 03/07/25
06:59 06:59 06:59
Intake Total 1320 / 1320 1150 / 1150 5 / 5
Output Total 1994 / 1904
Balance -675 / -675 -755 / -755
--- NOTE | 2025-03-06 12:00 | W.DCSUMMARY ---
Discharge Summary
Discharge Data
Date of Admission: 03/01/25
Date of Discharge: 03/06/25
-
Pending Results: No
Hospital Course
60-year-old male with past medical history of alcohol use, essential hypertension, substance use, hyperlipidemia, CAD, PAD, peripheral neuropathy came to the hospital with left thigh abscess. Patient was seen by surgery and ID throughout
hospitalization. CT scan was consistent with very large gas and fluid containing thick wall fluid collection. Patient was also seen by IR who performed a drainage and also had a DALILA drain which patient was discharged with. Wound culture were
consistent with Klebsiella, Enterococcus and Staphylococcus. Patient was initially on IV antibiotics were later transitioned to p.o. Augmentin prior to discharge. Prior to discharge he also had a repeat CAT scan which showed near resolution of
abscess. Surgery recommended patient to follow-up with them closely outpatient. Once patient symptoms continue to improve, he was then discharged home with instructions to follow-up with all his physicians outpatient.
Discharge Plan
-
Patient Disposition: Home with Home Care
Discharge Diagnosis/Procedures: left posterior thigh muscle abscess s/p drain
Sepsis secondary to thigh muscle abscess
Diet: As tolerated
Activity: No strenuous activity
Additional Activity: Be careful not to dislodge your drain, call your surgeon if this happens.
Driving Restrictions: As prior to admission
Bathing Restrictions: OK to Shower
Wound Care: Change dressing after showering. Flush your drain twice a day with 5ml of sterile saline (towards your leg). See handout from radiology for further directions.
Referrals:
Kyra Bragg CRNP [Family Provider] - in less than 1 week
Bulmaro Price MD [Active, Surgical] - in one week
Javi Fry DO [Active, Radiology]
An Townsend MD [Active, Infectious Diseases]
Prescriptions:
New
sodium chloride 0.9 % (flush) [Normal Saline Flush] Syringe
5 ml intra-catheter BID Qty: 100 0RF
Rx Instructions:
flush your drain with 5ml of sterile saline twice a day
pantoprazole 40 mg Tablet,Delayed Release (Dr/Ec)
40 mg PO DAILY Qty: 30 0RF
nicotine 21 mg/24 hr Patch 24 Hour
21 mg transdermal DAILY Qty: 30 0RF
oxycodone 10 mg Tablet
10 mg PO Q4HPRN PRN (Reason: moderate to severe pain) Qty: 20 0RF
amoxicillin-pot clavulanate 875-125 mg tablet
1 tab PO BID Qty: 28 0RF
Probiotic 10 billion cell capsule
10,000 mmu cells PO DAILY Qty: 20 0RF
Continued
atorvastatin 40 mg Tablet
40 mg PO DAILY
clopidogrel 75 mg Tablet
75 mg PO DAILY
aspirin 81 mg Tablet,Delayed Release (Dr/Ec)
81 mg PO DAILY
losartan 25 mg Tablet
25 mg PO DAILY
duloxetine 60 mg capsule,delayed release(DR/EC)
60 mg PO DAILY
gabapentin 800 mg tablet
800 mg PO TID
acetaminophen [Tylenol] 325 mg Tablet
650 mg PO Q6HPRN PRN (Reason: mild pain)
Discharge Orders:
Discharge Patient (As Directed); Ordered 03/06/25
Ordered By: Rios Sanchez
Discharge Date and Time
Discharge Date/Time: 03/06/25 15:17
Print Language: TELUGU
--- NOTE | 2025-03-06 12:28 | VNURNOTE ---
DC instructions reviewed. Orders for BID NSS flushes for DALILA noted. Called patient's primary pharmacy [facility], spoke to Nusrat. She stated they do not carry them. This author confirmed with [facility] and [facility] pharmacies that they carry them. Spoke
with patient at bedside. He prefers to use [facility] to supply the flushes. Hospitalist notified. Spoke with SHYANNE Thomas, requested to send him home w/ extras and requested pt be flushed second time prior to DC. Sherri at [facility] Intake updated.
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
--- NOTE | 2025-03-06 14:02 | PTCARENOTE ---
Received patient this am AAOx3. DALILA Drain Care taught to patient. Pt will need reinforcement from Home Care Nurses.n Pt sent home with Dressings,NSS Flushes, container for drainage and tape. Pt tolerated diet. Ambulated in room with a steady gait.
Made patient comfortable. Cont to assess patient status. Pt for discharge today.
--- NOTE | 2025-03-07 13:43 | PN.CDI ---
CDI
- -
CDI:
Physician Documentation Request
Admit Date: 03/01/25 15:32
Dear Doctor Daniel,
Patient admitted with sepsis secondary to thigh muscle abscess.
Lactic acid 2.9 on presentation
Please clarify which of the following most accurately describes the status of the patient's infection:
Severe sepsis
- Sepsis with associated acute organ dysfunction, such as renal or respiratory failure
Sepsis only
Other
Use of terms such as suspected, likely, concern for, or probable (associated with a specific diagnosis that is being evaluated, monitored, or treated as if it exists) are acceptable and can be coded in the inpatient setting, when documented at the
time of discharge.
Thank you,
Becky Mccarthy RN, BSN
CDI Specialist
tiger text
Please use your independent medical judgment in providing your response.
== END 2025-03-06 15:17 | disposition home health service (06) | DRG 872 ==
LOC: 4 EAST ACU 15:32
PROVIDERS: Hospitalist; Nurse Practitioner Family; Radiology Vascular & Interventional Radiology; Registered Nurse; ADMITTING PHYSICIAN Hospitalist; ATTENDING PHYSICIAN Internal Medicine; CONSULT PHYSICIAN Internal Medicine Infectious Disease; CONSULT PHYSICIAN Surgery; EMERGENCY PHYSICIAN Emergency Medicine; FAMILY PHYSICIAN Nurse Practitioner Primary Care
PROC: 0J9M30Z Drainage of Left Upper Leg Subcutaneous Tissue and Fascia with Drainage Device, Percutaneous Approach (ICD-10-PCS; 2025-03-01)
DX: A41.9 Sepsis, unspecified organism (principal); L02.416 Cutaneous abscess of left lower limb; B96.1 Klebsiella pneumoniae [K. pneumoniae] as the cause of diseases classified elsewhere; B95.2 Enterococcus as the cause of diseases classified elsewhere; I25.10 Atherosclerotic heart disease of native coronary artery without angina pectoris; Z95.1 Presence of aortocoronary bypass graft; G62.9 Polyneuropathy, unspecified; I10 Essential (primary) hypertension; I73.9 Peripheral vascular disease, unspecified; F10.20 Alcohol dependence, uncomplicated; F17.210 Nicotine dependence, cigarettes, uncomplicated; Z79.82 Long term (current) use of aspirin; Z79.02 Long term (current) use of antithrombotics/antiplatelets; Z79.899 Other long term (current) drug therapy; E78.00 Pure hypercholesterolemia, unspecified; G89.29 Other chronic pain
CPT/HCPCS: 10030; 73701; 80048; 80053; 80306; 80307; 81003; 81015; 82010; 82077; 82977; 83605; 83735; 84100; 85014; 85018; 85025; 85027; 85610; 85652; 85730; 86140; 87040; 87070; 87077; 87147; 87186; 87205; 96361; 96365; 96367; 96375; 96376; 97162; 99285; C1729; C1769; Q9967

== ENCOUNTER 2025-03-10 22:46 | Emergency (ER) | payer MEDICARE, SELFPAY ==
[2025-03-10 22:52] VITALS: BP 113/79
[2025-03-11 00:23] VITALS: BP 97/52; BMI 23.1
[2025-03-11 01:43] LABS: Hematocrit 32.6 % (39.0-52.0); Hemoglobin 11.3 g/dL (13.0-18.0); Mean Corp Hgb Conc. 34.7 g/dL (33.0-37.0); Mean Corpuscular Volume 95.3 fL (80.0-94.0); Nucleated Red Blood Cells % 0 % (-); Platelet Count 359 10^3/uL (130-400); Red Cell Dist. Width 12.7 % (11.5-14.5)
[2025-03-11] MEDS: ROXICODONE 10 MG PO (01:43)
[2025-03-11 02:09] LABS: ALT (SGPT) 174 U/L (0-50); AST (SGOT) 179 U/L (17-59); Albumin 3.8 g/dl (3.5-5.0); Alkaline Phosphatase 242 U/L (38-126); Blood Urea Nitrogen 15 mg/dl (9-20); Calcium 8.7 mg/dl (8.4-10.2); Carbon Dioxide 22 mmol/L (22-30); Chloride 106 mmol/L (98-107); Estimated Creatinine Clearance 40 ml/min; Glucose 101 mg/dl (70-99); Potassium 4.5 mmol/L (3.5-5.1); Sodium 137 mmol/L (135-145); Total Protein 6.6 g/dl (6.3-8.2); eGFR 46.15
--- NOTE | 2025-03-11 02:21 | ED.GENMED ---
History of Present Illness
<Yareli Grajeda DO - Last Filed: 03/11/25 06:32>
General
Chief Complaint: Catheter/Tube Problem
Source: patient and previous hospital records (Recent hospitalization March 01 to March 06 for treatment of left posterior thigh abscess; sepsis secondary to thigh muscle abscess.)
Exam Limitations: none
Time Seen by Provider: 03/11/25 01:10
Nursing documentation reviewed up to this point in time: agreed with
History of Present Illness
History of Present Illness:
The patient is a 60-year-old male who recently was discharged 5 days ago after undergoing drainage of an abscess located in the back of the left thigh. Initially, the patient reported that everything was going well with the healing process, and
drainage was occurring as expected through the DALILA drain. However, the past night saw an onset of significant pain localized to the site where the drain is placed. The patient describes the sensation as 'very, very, very painful,' although he notes
that the appearance of the site 'doesnt look bad' visually. Additionally, the patient mentioned that the DALILA drain seems to have a malfunction, where attempting to reconstitute the drain results in malfunction, describable as the drain 'exploding
back up.' The patient has not developed a fever according to their report. The patient says his voice has been 'a little raspy' but denies having experienced cough or throat pain.
The patient did not receive the prescribed oxycodone post-procedure as medication was not available at the pharmacy. He expressed concern over the lack of available pain management.
He does admit to drinking several beers tonight as well as over the past few days to help with pain control. He denies abdominal pain. No nausea nor vomiting. Appetite has been good.
Past History
<Yareli Grajeda DO - Last Filed: 03/11/25 06:32>
Past History
ED Past Medical History: CAD, HTN, Hypercholesterolemia, Psychiatric and Other (Peripheral vascular disease, chronic bilateral leg pain/peripheral neuropathy, lumbar disc disease)
ED Past Surgical History: Cardiac (CABG 2022), Orthopedic and Other (Right femoropopliteal bypass, left lower extremity arterial stent)
Social History
Tobacco: Smoker
Alcohol: Daily
Drug: None
Personal: Single
Living: with roommate
Employment: Not employed
Family History
Family History: Other (Noncontributory)
Phy Exam
<Yareli Grajeda DO - Last Filed: 03/11/25 06:32>
Physical Exam
Physical Exam:
GENERAL: 60-year-old gentleman appears somewhat older than stated age. Awake and alert, pleasant, appears in no acute distress. Moderate odor of tobacco about the patient.
EYE: pupils equal and reactive. anicteric
NECK: Supple, nontender, no meningismus, no significant adenopathy.
ENT: posterior pharynx is clear, oral mucosa is moist. TM clear b/l, nares patent.
CARDIAC: Regular rate and rhythm. no murmur.
LUNGS: Clear breath sounds bilaterally, no acute respiratory distress, no wheezes/rales/rhonchi
ABDOMEN: Soft, nondistended, without focal tenderness, no r/g, no cvat. normoactive BS.
NEUROLOGICAL: Alert and oriented x3, no focal neuro deficits.
SKIN: Warm and dry, normal color, skin intact. No rash.
MUSCULOSKELETAL: No C/C/E. peripheral pulses are full and equal b/l. Left posterior thigh has DALILA drain extending from mid aspect. There is mild erythema left posterior thigh with mild to moderate local tenderness to palpation. No palpable
firmness nor palpable heat. Scant thin yellowish local drainage. No lymphangitis. DALILA drain reconstituted but then bulb quickly returns to full size with scant serosanguineous drainage within the tubing.
PSYCH: Normal and appropriate interaction.
Course
<Yareli Grajeda DO - Last Filed: 03/11/25 06:32>
Orders/Labs/Results
Orders:
Orders
03/11/25 01:30
CT Lower Ext W/iv Cont Lt Urgent
Comment:
Reason For Exam: pain, swelling L post thigh-worsening
03/11/25 01:31
Oxycodone [Roxicodone] 10 mg PO NOW STA
03/11/25 01:36
Alcohol Urgent
Complete Blood Count/With Diff Urgent
Comprehensive Metabolic Panel Urgent
03/11/25 02:20
Add On- LAB Urgent
Tests Added?: alcohol level
0.9% Sodium Chloride 1000 ml [Nss] 1,000 ml IV BOLUS
03/11/25 07:16
Oxycodone [Roxicodone] 5 mg PO NOW STA
03/11/25 08:56
Basic Metabolic Panel Urgent
Abnormal Lab Results
03/11/25 03/11/25
01:36 08:56
RBC 3.42 L 10^6/uL
(4.70-6.10)
Hgb 11.3 L g/dL
(13.0-18.0)
Hct 32.6 L %
(39.0-52.0)
MCV 95.3 H fL
(80.0-94.0)
MCH 33.0 H pg
(27.0-31.0)
Abs Immat Gran (auto) 0.1 H 10^3/uL
(0-0.05)
Absolute Neuts (auto) 6.6 H 10^3/uL
(1.4-6.5)
Immature Gran % 1.0 H %
(0-0.5)
Lymphocytes % 16.0 L %
(20.5-51.1)
Creatinine 1.7 H mg/dL
(0.7-1.3)
Glucose 101 H mg/dl 106 H mg/dl
(70-99) (70-99)
Calcium 8.2 L mg/dl
(8.4-10.2)
AST 179 H U/L
(17-59)
ALT 174 H U/L
(0-50)
Alkaline Phosphatase 242 H U/L
(38-126)
03/11/25 01:36
03/11/25 08:56
Vital Signs
Initial and Last Documented VS:
Initial Vital Signs
Temp Pulse Resp BP Pulse Ox
98 F 116 18 113/79 98
03/10/25 22:52 03/10/25 22:52 03/10/25 22:52 03/10/25 22:52 03/10/25 22:52
Last Documented Vital Signs
Temp Pulse Resp BP Pulse Ox
98 F 94 16 180/94 96
03/10/25 22:52 03/11/25 09:26 03/11/25 09:26 03/11/25 09:26 03/11/25 09:26
<Ezequiel Medina MD - Last Filed: 03/11/25 10:02>
Orders/Labs/Results
Orders:
Orders
03/11/25 01:30
CT Lower Ext W/iv Cont Lt Urgent
Comment:
Reason For Exam: pain, swelling L post thigh-worsening
03/11/25 01:31
Oxycodone [Roxicodone] 10 mg PO NOW STA
03/11/25 01:36
Alcohol Urgent
Complete Blood Count/With Diff Urgent
Comprehensive Metabolic Panel Urgent
03/11/25 02:20
Add On- LAB Urgent
Tests Added?: alcohol level
0.9% Sodium Chloride 1000 ml [Nss] 1,000 ml IV BOLUS
03/11/25 07:16
Oxycodone [Roxicodone] 5 mg PO NOW STA
03/11/25 08:56
Basic Metabolic Panel Urgent
Abnormal Lab Results
03/11/25 03/11/25
01:36 08:56
RBC 3.42 L 10^6/uL
(4.70-6.10)
Hgb 11.3 L g/dL
(13.0-18.0)
Hct 32.6 L %
(39.0-52.0)
MCV 95.3 H fL
(80.0-94.0)
MCH 33.0 H pg
(27.0-31.0)
Abs Immat Gran (auto) 0.1 H 10^3/uL
(0-0.05)
Absolute Neuts (auto) 6.6 H 10^3/uL
(1.4-6.5)
Immature Gran % 1.0 H %
(0-0.5)
Lymphocytes % 16.0 L %
(20.5-51.1)
Creatinine 1.7 H mg/dL
(0.7-1.3)
Glucose 101 H mg/dl 106 H mg/dl
(70-99) (70-99)
Calcium 8.2 L mg/dl
(8.4-10.2)
AST 179 H U/L
(17-59)
ALT 174 H U/L
(0-50)
Alkaline Phosphatase 242 H U/L
(38-126)
03/11/25 01:36
03/11/25 08:56
Vital Signs
Initial and Last Documented VS:
Initial Vital Signs
Temp Pulse Resp BP Pulse Ox
98 F 116 18 113/79 98
03/10/25 22:52 03/10/25 22:52 03/10/25 22:52 03/10/25 22:52 03/10/25 22:52
Last Documented Vital Signs
Temp Pulse Resp BP Pulse Ox
98 F 94 16 180/94 96
03/10/25 22:52 03/11/25 09:26 03/11/25 09:26 03/11/25 09:26 03/11/25 09:26
<Yareli Grajeda DO - Last Filed: 03/11/25 06:32>
MDM/Problems Addressed
Differential Diagnosis Includes:
The Differential Diagnosis includes, in no particular order and is not limited to:
1. Abscess recurrence or reinfection.
2. Hematoma formation or collection at the surgical site.
3. Incomplete drainage or blockage of the abscess.
4. Localized cellulitis or skin infection.
5. Allergic reaction or adverse reaction to previously administered medication.
6. Normal postoperative pain versus escalating due to complications.
7. Exacerbation of underlying chronic pain disorder, if any.
8. Musculoskeletal strain or trauma to the affected limb.
9. Nerve irritation or injury secondary to the procedure.
10. Thrombophlebitis related to the surgical procedure or its management.
MDM/Problems Addressed:
Recurrent left posterior thigh pain.
Concern for recurrent posterior thigh abscess formation.
Pain control.
Chronic conditions affecting care:
History of alcohol abuse/alcohol dependence.
History of peripheral vascular disease, hypertension, hyperlipidemia, CAD, peripheral neuropathy, right lower extremity femoropopliteal bypass, left lower extremity stenting, tobacco abuse.
<DO Linda Fitzgerald Last Filed: 03/11/25 06:32>
*Radiology
Radiology exam reviewed: radiology read reviewed
*Pulse Oximetry
SaO2: 98
Oxygen Mode of Delivery: Room air
Patient hypoxic: no
*Critical Care Note
Total Time (30-74mins, 75-104mins- exclusive of procedures): Not Applicable
<Yareli Grajeda DO - Last Filed: 03/11/25 06:32>
Update Note
Update Note:
CBC is reassuring with normal white blood cell count. Mild but stable anemia in fact improving.
Chemistries show elevated creatinine of 1.7 which has trended up from previous. Moderately elevated LFTs which are new compared to previous. He continues to deny abdominal pain. He has been drinking alcohol the past few days which is likely
attributable. Doubtful that Augmentin is causing pancreatitis especially in light of lack of abdominal pain.
CT of left thigh compared to previous exam March 04 shows left posterior thigh drain in place with partially drained perimuscular fluid with new air locules. No significant abscess visualized.
Despite changing DALILA drain bulb, it continues to malfunction, does not retain decompressed seal.
Concern for air leak within the tubing entering the skin versus air leak along the skin tract.
Will plan to touch base with IR versus general surgery to review films. At this point we may be able to remove DALILA drain versus replace.
<Ezequiel Medina MD - Last Filed: 03/11/25 10:02>
Update Note
Update Note:
CBC is reassuring with normal white blood cell count. Mild but stable anemia in fact improving.
Chemistries show elevated creatinine of 1.7 which has trended up from previous. Moderately elevated LFTs which are new compared to previous. He continues to deny abdominal pain. He has been drinking alcohol the past few days which is likely
attributable. Doubtful that Augmentin is causing pancreatitis especially in light of lack of abdominal pain.
CT of left thigh compared to previous exam March 04 shows left posterior thigh drain in place with partially drained perimuscular fluid with new air locules. No significant abscess visualized.
Despite changing DALILA drain bulb, it continues to malfunction, does not retain decompressed seal.
Concern for air leak within the tubing entering the skin versus air leak along the skin tract.
Will plan to touch base with IR versus general surgery to review films. At this point we may be able to remove DALILA drain versus replace.
Discussed with surgery (). Recommends IR to review CT abd/pel, to see if DALILA drain can be repositioned.
CT reviewed by IR () who feels that there is no new target for drain or repositioning.
BMP repeated after IVF - initial renal insufficiency resolved
Per surgery, pt will be discharged home with drain in place for urgent outpatient surgery evaluation. Will continue abx (Augmentin)
ED Attending Note
<Yareli Grajeda DO - Last Filed: 03/11/25 06:32>
-
Portions of this chart may have been created with voice recognition software.� Occasional wrong word or��sound alike� substitutions may have occurred due to the inherent limitations of voice recognition software.
Discharge Plan
Departure
Patient Disposition: Home (Routine Discharge)
Date of Disposition: 03/11/25
Time of Disposition: 09:58
Patient with high blood pressure during this ER visit?: Yes
Discharge Problem:
Malfunction of DALILA drain, Resolving abscess left posterior thigh
Instructions: Skin Abscess
Prescriptions:
No Action
atorvastatin 40 mg Tablet
40 mg PO DAILY
clopidogrel 75 mg Tablet
75 mg PO DAILY
aspirin 81 mg Tablet,Delayed Release (Dr/Ec)
81 mg PO DAILY
losartan 25 mg Tablet
25 mg PO DAILY
duloxetine 60 mg capsule,delayed release(DR/EC)
60 mg PO DAILY
gabapentin 800 mg tablet
800 mg PO TID
acetaminophen [Tylenol] 325 mg Tablet
650 mg PO Q6HPRN PRN (Reason: mild pain)
sodium chloride 0.9 % (flush) [Normal Saline Flush] Syringe
5 ml intra-catheter BID Qty: 100 0RF
Rx Instructions:
flush your drain with 5ml of sterile saline twice a day
pantoprazole 40 mg Tablet,Delayed Release (Dr/Ec)
40 mg PO DAILY Qty: 30 0RF
nicotine 21 mg/24 hr Patch 24 Hour
21 mg transdermal DAILY Qty: 30 0RF
oxycodone 10 mg Tablet
10 mg PO Q4HPRN PRN (Reason: moderate to severe pain) Qty: 20 0RF
amoxicillin-pot clavulanate 875-125 mg tablet
1 tab PO BID Qty: 28 0RF
Probiotic 10 billion cell capsule
10,000 mmu cells PO DAILY Qty: 20 0RF
Referrals:
Kyra Bragg CRNP [Family Provider]
Bulmaro Price MD [Active, Surgical]
Activity Restrictions/Additional Instructions:
As discussed, please continue already prescribed antibiotics. You will be receiving phone call from surgery office for an appt for urgent outpatient evaluation
Interventions
Interventions:
*Risk Screen - Suicide Last Done: 03/10/25 22:52
*General Assessment Last Done: 03/10/25 22:52
*Neglect/Abuse Screening Last Done: 03/10/25 22:52
*ED- Fall Risk Assessment Last Done: 03/10/25 22:52
*ED COVID-19 Vaccine History Last Done: 03/10/25 22:52
ED-Male Genitourinary Assessment Last Done: 03/11/25 02:30
HJ-Rwdade-Ejxczuxycn Assessment Last Done: 03/11/25 00:05
Discharge Date and Time
Print Language: [place]AST [place]
[2025-03-11] MEDS: NSS 1000 IV (02:41)
[2025-03-11 03:28] VITALS: BP 139/78
[2025-03-11 06:14] VITALS: BP 159/80
[2025-03-11 07:10] VITALS: BP 161/80
[2025-03-11] MEDS: ROXICODONE 5 MG PO (07:20)
[2025-03-11 08:05] VITALS: BP 171/86
[2025-03-11 09:26] VITALS: BP 180/94
[2025-03-11 09:27] LABS: Blood Urea Nitrogen 14 mg/dl (9-20); Calcium 8.2 mg/dl (8.4-10.2); Carbon Dioxide 23 mmol/L (22-30); Chloride 105 mmol/L (98-107); Estimated Creatinine Clearance 56 ml/min; Glucose 106 mg/dl (70-99); Potassium 4.5 mmol/L (3.5-5.1); Sodium 135 mmol/L (135-145); eGFR > 60.00
== END 2025-03-11 10:21 | disposition home or self-care (01) ==
LOC: EMR 22:46
PROVIDERS: Emergency Medicine; EMERGENCY PHYSICIAN Emergency Medicine; FAMILY PHYSICIAN Nurse Practitioner Primary Care
DX: T85.618A Breakdown (mechanical) of other specified internal prosthetic devices, implants and grafts, initial encounter (principal); M79.652 Pain in left thigh; D64.9 Anemia, unspecified; I25.810 Atherosclerosis of coronary artery bypass graft(s) without angina pectoris; I10 Essential (primary) hypertension; E78.00 Pure hypercholesterolemia, unspecified; I73.9 Peripheral vascular disease, unspecified; F10.20 Alcohol dependence, uncomplicated; G57.93 Unspecified mononeuropathy of bilateral lower limbs; M51.369 Other intervertebral disc degeneration, lumbar region without mention of lumbar back pain or lower extremity pain; F17.200 Nicotine dependence, unspecified, uncomplicated; Y79.3 Surgical instruments, materials and orthopedic devices (including sutures) associated with adverse incidents; Z95.1 Presence of aortocoronary bypass graft
CPT/HCPCS: 99284; 96360; 96361; 73701; 80048; 80053; 82077; 85025; Q9967

== ENCOUNTER 2025-03-27 23:52 | Inpatient (IN) | payer MEDICARE, SELFPAY ==
[2025-03-27 19:08] VITALS: BP 139/94
[2025-03-27 19:52] LABS: Hematocrit 35.7 % (39.0-52.0); Hemoglobin 12.4 g/dL (13.0-18.0); Mean Corp Hgb Conc. 34.7 g/dL (33.0-37.0); Mean Corpuscular Volume 97.3 fL (80.0-94.0); Nucleated Red Blood Cells % 0 % (-); Platelet Count 252 10^3/uL (130-400); Red Cell Dist. Width 13.4 % (11.5-14.5)
[2025-03-27 19:56] LABS: ALT (SGPT) 22 U/L (0-50); AST (SGOT) 20 U/L (17-59); Albumin 4.4 g/dl (3.5-5.0); Alkaline Phosphatase 134 U/L (38-126); Blood Urea Nitrogen 10 mg/dl (9-20); Calcium 9.0 mg/dl (8.4-10.2); Carbon Dioxide 22 mmol/L (22-30); Chloride 104 mmol/L (98-107); Glucose 103 mg/dl (70-99); Potassium 4.2 mmol/L (3.5-5.1); Sodium 134 mmol/L (135-145); Total Protein 7.3 g/dl (6.3-8.2); eGFR > 60.00
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
[2025-03-27] MEDS: NSS 1000 IV (21:43)
[2025-03-27] MEDS: DILAUDID 1 MG IV (21:45)
[2025-03-27] MEDS: ZOFRAN 4 MG IV (21:46)
[2025-03-27 22:13] VITALS: BP 145/70
[2025-03-27 22:30] VITALS: BP 131/73
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
[2025-03-27] MEDS: UNASYN IV (22:50)
[2025-03-27 23:00] VITALS: BP 167/90
[2025-03-27 23:30] VITALS: BP 132/72
[2025-03-28] VITALS: BP 126/68
[2025-03-28] MEDS: ROXICODONE 5 MG PO ×4 (00:49→17:13)
[2025-03-28 00:50] VITALS: BP 140/88; BMI 22.5
--- NOTE | 2025-03-28 02:41 | PTCARENOTE ---
Pt. arrived to unit from ED via stretcher. Pt. able to ambulate into room 337-1 on . Pt. AAOx3 and able to make needs known. Oriented to unit. Call chavez within reach. Plan of care ongoing.
--- NOTE | 2025-03-28 02:43 | DOWNTIME ---
There was a [employer] Client Ped[employer]er Downtime on 03/28/2025 from 0100 to 03/28/2025 at 0215. Downtime documentation of patient's care, including medication administrations, has been reconciled in the electronic record per guidelines. Refer to the
patient's paper chart under the miscellaneous tab to see printed paper medication records and downtime forms.
[2025-03-28] MEDS: UNASYN IV ×4 (05:00→22:43)
[2025-03-28 05:43] LABS: INR 0.98; PT 13.3 Sec (11.4-14.6)
[2025-03-28 05:44] LABS: APTT 26.3 Sec (23.4-35.0); Hematocrit 33.7 % (39.0-52.0); Hemoglobin 11.4 g/dL (13.0-18.0); Mean Corp Hgb Conc. 33.8 g/dL (33.0-37.0); Mean Corpuscular Volume 98.5 fL (80.0-94.0); Nucleated Red Blood Cells % 0 % (-); Platelet Count 191 10^3/uL (130-400); Red Cell Dist. Width 13.6 % (11.5-14.5)
[2025-03-28 06:54] LABS: ALT (SGPT) 18 U/L (0-50); AST (SGOT) 16 U/L (17-59); Albumin 3.5 g/dl (3.5-5.0); Alkaline Phosphatase 118 U/L (38-126); Blood Urea Nitrogen 12 mg/dl (9-20); Calcium 8.6 mg/dl (8.4-10.2); Carbon Dioxide 25 mmol/L (22-30); Chloride 108 mmol/L (98-107); Estimated Creatinine Clearance 75 ml/min; GGTP 387 U/L (15-73); Glucose 94 mg/dl (70-99); Magnesium 1.9 mg/dl (1.6-2.3); Potassium 4.4 mmol/L (3.5-5.1); Sodium 137 mmol/L (135-145); Total Protein 6.2 g/dl (6.3-8.2); eGFR > 60.00
[2025-03-28 07:18] VITALS: BP 146/86
[2025-03-28] MEDS: NEURONTIN 800 MG PO ×3 (08:19→21:12)
[2025-03-28] MEDS: ASPIR LOW (ENTERIC COATED) 81 MG PO (08:19)
[2025-03-28] MEDS: COZAAR 25 MG PO (08:19)
[2025-03-28] MEDS: CYMBALTA DELAYED RELEASE 60 MG PO (08:21)
[2025-03-28] MEDS: PLAVIX 75 MG PO (08:21)
[2025-03-28] MEDS: LIPITOR 40 MG PO (08:21)
[2025-03-28] MEDS: VISBIOME 1 CAP PO (08:22)
[2025-03-28] MEDS: PROTONIX 40 MG PO (08:22)
[2025-03-28] MEDS: FOLVITE 1 MG PO (08:22)
[2025-03-28] MEDS: THIAMINE INJECTION 200 MG IV ×2 (08:23→21:00)
[2025-03-28] MEDS: NICODERM TRANSDERMAL 14 MG TRANSDERM (08:27)
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
[2025-03-28] MEDS: XYLOCAINE 1% 20 ML INFIL (10:36)
[2025-03-28] MEDS: TYLENOL 650 MG PO (10:49)
--- NOTE | 2025-03-28 11:23 | CON.GS ---
Consultation
-
Date/Time Consultation Performed: 03/28/25
Requesting Provider: Roni
Performing Provider: Kassy
Reason for Consultation: LLE abscess
Medical History
-
Chief Complaint: LLE pain
History of Present Illness:
60M recently admitted for STI of LLE managed with IR drain and abx. He returned to ED yesterday with increasing pain and tenderness in the left thigh inthe area where the drain was. He reports increasing redness ton the area and warmth to the touch.
He denies f/c/n/v. He is ambulating without difficulty.
Past Medical History
Past Medical History: Other (essential hypertension hyperlipidemia CAD PAD peripheral neuropathy alcohol abuse Nicotine abuse Hx hyponatremia)
Past Surgical History: Other (Cardiac stents x 2 Left thumb surgery Right lower extremity femoropopliteal bypass Left lower extremity stenting Left tibia shaft fracture ORIF and revision)
Social History
Tobacco: Smoker
Alcohol: Daily
Drug: Marijuana
Living: With Family
Family History
Family History: Reviewed & Noncontributory
Allergies / Home Medications
Allergy/AdvReac Type Severity Reaction Status Date / Time
No Known Allergies Allergy Verified 03/27/25 19:12
�Medication �Instructions �Recorded �Confirmed �Type
aspirin 81 mg tablet,delayed 81 mg PO DAILY Blood Clot 12/25/23 03/11/25 History
release Prevention/Tx
atorvastatin 40 mg tablet 40 mg PO DAILY High Cholesterol 12/25/23 03/11/25 History
clopidogrel 75 mg tablet 75 mg PO DAILY Blood Clot 12/25/23 03/11/25 History
Prevention/Tx
duloxetine 60 mg capsule,delayed 60 mg PO DAILY Depression 12/25/23 03/11/25 History
release
losartan 25 mg tablet 25 mg PO DAILY Blood Pressure 12/25/23 03/11/25 History
gabapentin 800 mg tablet 800 mg PO TID mild Pain 01/18/24 03/11/25 History
acetaminophen 325 mg tablet 650 mg PO Q6HPRN PRN mild pain 03/01/25 03/11/25 History
(Tylenol)
sodium chloride 0.9 % (flush) 5 ml intra-catheter BID #100 mL 03/05/25 03/11/25 Rx
(Normal Saline Flush 0.9 %
injection syringe)
Lactobacillus acidophilus 10 10,000 mmu cells PO DAILY #20 caps 03/06/25 03/11/25 Rx
billion cell capsule (Probiotic)
amoxicillin 875 mg-potassium 1 tab PO BID #28 tabs 03/06/25 03/11/25 Rx
clavulanate 125 mg tablet
nicotine 21 mg/24 hr daily 21 mg transdermal DAILY #30 ea 03/06/25 03/11/25 Rx
transdermal patch
oxycodone 10 mg tablet 10 mg PO Q4HPRN PRN moderate to 03/06/25 03/11/25 Rx
severe pain #20 tabs
pantoprazole 40 mg tablet,delayed 40 mg PO DAILY #30 tabs 03/06/25 03/11/25 Rx
release
Review of Systems
-
A 10 point review of systems was completed, and was negative except as per HPI.
Physical Exam
Vital Signs
Temp Pulse Resp BP Pulse Ox
98.2 F 78 17 146/86 97
03/28/25 07:18 03/28/25 08:19 03/28/25 07:18 03/28/25 08:19 03/28/25 08:15
03/27/25 03/28/25 03/29/25
06:59 06:59 06:59
Actual Weight 59.375 kg
Body Mass Index (BMI) 22.5
Lab Results
03/28/25 05:27
03/28/25 05:27
WBC 5.8 10^3/uL (4.8-10.8) 03/28/25 05:27
Hgb 11.4 g/dL (13.0-18.0) L 03/28/25 05:27
Hct 33.7 % (39.0-52.0) L 03/28/25 05:27
Plt Count 191 10^3/uL (130-400) D 03/28/25 05:27
Abs Immat Gran (auto) 0.0 10^3/uL (0-0.05) 03/28/25 05:27
Neutrophils % 55.2 % (42.2-75.2) 03/28/25 05:27
Physical Exam
General: Well Developed, Well Nourished and No Apparent Distress
GI: Soft and Non Tender
Skin: Warm, Dry and Other (lateral left thigh area of mild erythema and fluctuance)
Neuro: AO x 3
Psych: Calm
Data Reviewed
-
CT Scan: Image Personally Visualized and interpreted, Report Reviewed by me, Discussed with Physician and Discussed with Patient
Labs: Labs Reviewed by me, Discussed with Physician and Discussed with Patient
Assessment / Plan
-
60M with recurrent abscess to left thigh
AFVSS, no leukocytosis.
For bedside I&D, procedure in detail:
Skin prep: EtOH
Anesthesia: lidocaine 1% with epi
Incision made with #15 blade at point of maximum flucutuance and full thickness elliptical skin defect created with return of blood and pus
Cultures obtained
Wound irrigated with sterile saline and packed with plain dry gauze
Covered with DSD and honorio wrap
Plan for daily packing changes
OK for DC from surgical standpoint
--- NOTE | 2025-03-28 11:39 | CM ---
Referral sent to [facility] for substance abuse counseling. I spoke with Jen who will be seeing Javi today after 1:30pm to discuss services and options.
CM will continue to follow.
--- NOTE | 2025-03-28 11:42 | CM ---
Addendum entered by Maria Del Carmen Bryson 03/28/25 16:55:
Pt was to be seen by [facility] customer counter representative, Jen Caldwell accepted resource information: an AA meeting list for the [place] area, information regarding [facility] including Jen's phone number if he needs to talk to someone.
Plan: Discharge to home with [facility].
Original Note:
CM met with Javi to complete IA.
Javi lives with his son in an apartment. Patient stated that he rents from a landlord. Patient does not drive; uses an electric bike for transportation.
He is (I) amb and ADLs at baseline. He is agreeable to speaking with [facility], but not sure he will be agreeable to services. [facility] will meet with Javi later this afternoon.
Plan: CM will continue to follow for discharge planning needs.
PCP: Carlie Bragg
Pharmacy: [facility] in [place]. CM will continue to follow for discharge planning needs.
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
--- NOTE | 2025-03-28 13:02 | PTCARENOTE ---
patient complained of 9/10 pain after bedside procedure. 1 hour prior to procedure patient received prn oxycodone for 9/10 pain. pain resolved to a 4/10. after procedure patient was in 9/10 pain. was given Tylenol and ice for pain with no
improvement. MD made aware. no new orders received.
[2025-03-28] MEDS: MORPHINE SULFATE 2 MG IV ×2 (13:20→21:00)
[2025-03-28 14:13] LABS: Urine Character Clear (Clear)
[2025-03-28 14:47] LABS: Urine Red Blood Cell 0-2 /HPF (0-2); Urine Squamous Cell 0-2 /LPF (Few); Urine White Cell 0-2 /HPF (0-5)
[2025-03-28 14:51] VITALS: BP 149/80
[2025-03-28] MEDS: LOVENOX 40 MG SC (17:04)
[2025-03-28 23:00] VITALS: BP 164/89
[2025-03-29] MEDS: ROXICODONE 5 MG PO ×4 (01:02→20:21)
[2025-03-29] MEDS: UNASYN IV ×4 (06:05→23:02)
[2025-03-29 06:23] LABS: Hematocrit 34.3 % (39.0-52.0); Hemoglobin 11.6 g/dL (13.0-18.0); Mean Corp Hgb Conc. 33.8 g/dL (33.0-37.0); Mean Corpuscular Volume 99.1 fL (80.0-94.0); Nucleated Red Blood Cells % 0 % (-); Platelet Count 222 10^3/uL (130-400); Red Cell Dist. Width 13.5 % (11.5-14.5)
[2025-03-29 06:53] LABS: ALT (SGPT) 16 U/L (0-50); AST (SGOT) 15 U/L (17-59); Albumin 3.7 g/dl (3.5-5.0); Alkaline Phosphatase 120 U/L (38-126); Blood Urea Nitrogen 12 mg/dl (9-20); Calcium 8.7 mg/dl (8.4-10.2); Carbon Dioxide 26 mmol/L (22-30); Chloride 105 mmol/L (98-107); Estimated Creatinine Clearance 75 ml/min; Glucose 102 mg/dl (70-99); Potassium 4.2 mmol/L (3.5-5.1); Sodium 135 mmol/L (135-145); Total Protein 6.3 g/dl (6.3-8.2); eGFR > 60.00
[2025-03-29 07:26] VITALS: BP 164/98
[2025-03-29] MEDS: NEURONTIN 800 MG PO ×3 (08:48→23:01)
[2025-03-29] MEDS: PROTONIX 40 MG PO (08:48)
[2025-03-29] MEDS: FOLVITE 1 MG PO (08:50)
[2025-03-29] MEDS: PLAVIX 75 MG PO (08:50)
[2025-03-29] MEDS: LIPITOR 40 MG PO (08:51)
[2025-03-29] MEDS: COZAAR 25 MG PO (08:51)
[2025-03-29] MEDS: ASPIR LOW (ENTERIC COATED) 81 MG PO (08:51)
[2025-03-29] MEDS: CYMBALTA DELAYED RELEASE 60 MG PO (08:51)
[2025-03-29] MEDS: NICODERM TRANSDERMAL 14 MG TRANSDERM (08:52)
[2025-03-29] MEDS: VISBIOME 1 CAP PO (08:52)
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
[2025-03-29] MEDS: THIAMINE INJECTION 200 MG IV ×2 (08:53→20:23)
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
[2025-03-29 15:06] VITALS: BP 147/85
[2025-03-29] MEDS: LOVENOX 40 MG SC (16:34)
[2025-03-29] MEDS: TYLENOL 650 MG PO (18:08)
[2025-03-29 23:00] VITALS: BP 169/98
[2025-03-29] MEDS: MORPHINE SULFATE 2 MG IV (23:44)
[2025-03-30] VITALS (8 sets, daily range): BP systolic 134–232; BP diastolic 91–126
[2025-03-30] MEDS: UNASYN IV ×2 (04:19→10:19)
[2025-03-30] MEDS: ROXICODONE 5 MG PO ×2 (04:19→08:55)
[2025-03-30] MEDS: CYMBALTA DELAYED RELEASE 60 MG PO (08:46)
[2025-03-30] MEDS: COZAAR 50 MG PO (08:47)
[2025-03-30] MEDS: PROTONIX 40 MG PO (08:47)
[2025-03-30] MEDS: VISBIOME 1 CAP PO (08:47)
[2025-03-30] MEDS: FOLVITE 1 MG PO (08:47)
[2025-03-30] MEDS: ASPIR LOW (ENTERIC COATED) 81 MG PO (08:47)
[2025-03-30] MEDS: LIPITOR 40 MG PO (08:47)
[2025-03-30] MEDS: NEURONTIN 800 MG PO ×2 (08:47→15:09)
[2025-03-30] MEDS: PLAVIX 75 MG PO (08:47)
[2025-03-30] MEDS: NICODERM TRANSDERMAL 14 MG TRANSDERM (08:47)
[2025-03-30] MEDS: THIAMINE INJECTION 200 MG IV (08:48)
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
--- NOTE | 2025-03-30 13:08 | CM ---
Pt is cleared for discharge to home today. IMM issued, signed and placed in chart. Pt will call for an UBER to get home.
Plan: Discharge to home with no needs.
[2025-03-30] MEDS: XANAX 0.5 MG PO (15:08)
--- NOTE | 2025-03-30 15:21 | PTCARENOTE ---
D/c order in- while doing discharge VS, BP 232/100 HR 124. MSAS score now 5 for visible tremors, tachycardia, and restlessness. MD made aware of this change. ECG obtained. saw pt @bedside. Pt complaining of increased anxiety from the elevated BP.
Pt requesting to continually take BP. BP remains elevated- see VS documentation. Xanax prescribed and administered to pt per MD order. Discharge order removed by MD. Pt insisting elevated BP and HR is because of anxiety of d/c. Will continue to
monitor.
[2025-03-30] MEDS: AUGMENTIN 875 MG/125 MG 1 TABLET PO (17:34)
--- NOTE | 2025-03-30 18:25 | PTCARENOTE ---
Pt stating he feels less anxious at this time BP 134/95 Hr 97. made aware, pt eager to be d/c. Discharge order obtained. IV removed and discharge paperwork given. Pt walked to the main lobby to order Uber to get home.
== END 2025-03-30 18:31 | disposition home or self-care (01) | DRG 603 ==
LOC: 3 WEST ACU 23:52
PROVIDERS: Clinical Nurse Specialist Family Health; Emergency Medicine; ADMITTING PHYSICIAN Internal Medicine; ATTENDING PHYSICIAN Internal Medicine; EMERGENCY PHYSICIAN Emergency Medicine; FAMILY PHYSICIAN Nurse Practitioner Primary Care; OTHER PHYSICIAN Internal Medicine Infectious Disease; OTHER PHYSICIAN Surgery
DX: L02.416 Cutaneous abscess of left lower limb (principal); I25.10 Atherosclerotic heart disease of native coronary artery without angina pectoris; E78.00 Pure hypercholesterolemia, unspecified; I73.9 Peripheral vascular disease, unspecified; F41.9 Anxiety disorder, unspecified; I10 Essential (primary) hypertension; F10.10 Alcohol abuse, uncomplicated; F17.210 Nicotine dependence, cigarettes, uncomplicated; G62.9 Polyneuropathy, unspecified; Z79.82 Long term (current) use of aspirin; Z79.899 Other long term (current) drug therapy; Z79.02 Long term (current) use of antithrombotics/antiplatelets; Z95.1 Presence of aortocoronary bypass graft; F32.A Depression, unspecified; G89.29 Other chronic pain; K21.9 Gastro-esophageal reflux disease without esophagitis; Z95.5 Presence of coronary angioplasty implant and graft
CPT/HCPCS: 73701; 80053; 80306; 80307; 81003; 81015; 82010; 82077; 82977; 83605; 83735; 84100; 85025; 85610; 85730; 87040; 87070; 87075; 87205; 93005; 96361; 96365; 96375; 99284; Q9967

== ENCOUNTER 2025-05-02 19:17 | Inpatient (IN) | payer MEDICARE, SELFPAY ==
[2025-05-02] VITALS (12 sets, daily range): BP systolic 113–176; BP diastolic 80–97; BMI 23.2; BMI 22.4
[2025-05-02 11:27] LABS: Hematocrit 42.4 % (39.0-52.0); Hemoglobin 14.0 g/dL (13.0-18.0); Mean Corp Hgb Conc. 33.0 g/dL (33.0-37.0); Mean Corpuscular Volume 100.7 fL (80.0-94.0); Nucleated Red Blood Cells % 0 % (-); Platelet Count 191 10^3/uL (130-400); Red Cell Dist. Width 12.7 % (11.5-14.5)
[2025-05-02 11:36] LABS: APTT 27.0 Sec (23.4-35.0)
[2025-05-02 11:40] LABS: ALT (SGPT) 28 U/L (0-50); AST (SGOT) 32 U/L (17-59); Albumin 4.4 g/dl (3.5-5.0); Alkaline Phosphatase 67 U/L (38-126); Blood Urea Nitrogen 9 mg/dl (9-20); Calcium 8.9 mg/dl (8.4-10.2); Carbon Dioxide 22 mmol/L (22-30); Chloride 105 mmol/L (98-107); Glucose 94 mg/dl (70-99); Potassium 4.1 mmol/L (3.5-5.1); Sodium 134 mmol/L (135-145); Total Protein 7.1 g/dl (6.3-8.2); eGFR > 60.00
[2025-05-02 11:51] LABS: Troponin I 0.037 ng/ml
--- NOTE | 2025-05-02 12:32 | EDRN ---
Received patient on stretcher with the primary c/o left posterior thigh pain where he had a drain placed for an abscess. Patient stated that the pain started 4 days ago. No drainage noted at the site. Slight redness noted at old drain site. Patient
also with c/o exertional chest pain for several days. 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 Patient stated that he is trying to get a
new supervisor finishing department here. patient stated that he quit smoking Wednesday and prior to that he was smoking 1 PPD.
--- NOTE | 2025-05-02 13:38 | ED.GENMED ---
History of Present Illness
<Mohini Smith SOLUTIONS SPECIALIST - Last Filed: 05/02/25 17:24>
General
Chief Complaint: Musculo-Skeletal Complaint
Source: patient
Exam Limitations: none
Time Seen by Provider: 05/02/25 12:19
Nursing documentation reviewed up to this point in time: agreed with
History of Present Illness
History of Present Illness:
60-year-old male with history of CAD, HTN, HLD, CABG, PAD status post stent, anxiety, alcohol use, smoker, admitted here 03/27 to 03/30 for abscess of the left thigh which was drained and area appears to be well-healed
Patient presents for significant pain in the posterior left thigh where he had previous abscess drained. He agrees that the site looks 'great,' but the pain is unbearable. He is requesting something for pain as Aleve has not been helping.
He states he has also had waxing and waning chest pain over the past 4 days. He has a chronic smoker's cough but the chest pain has been worse when he coughs. He states he is currently having chest pain, sharp, 'mild.'
Past History
<Mohini Smith SOLUTIONS SPECIALIST - Last Filed: 05/02/25 17:24>
Past History
ED Past Medical History: CAD, HTN, Hypercholesterolemia, Psychiatric and Other (Peripheral vascular disease, chronic bilateral leg pain/peripheral neuropathy, lumbar disc disease)
ED Past Surgical History: Cardiac (CABG 2021), Orthopedic and Other (Right femoropopliteal bypass, left lower extremity arterial stent)
Social History
Tobacco: Smoker
Alcohol: Daily
Drug: None
Personal: Single
Living: with roommate
Employment: Not employed
Family History
Family History: Other (Noncontributory)
Review of Systems
<Mohini Smith, SOLUTIONS SPECIALIST - Last Filed: 05/02/25 17:24>
Review of Systems
Allergies reviewed?: Yes
All Other Systems: ROS reviewed and negative except as documented in HPI and ROS
Phy Exam
<Mohini Smith SOLUTIONS SPECIALIST - Last Filed: 05/02/25 17:24>
Physical Exam
Physical Exam:
GENERAL: No acute distress. A&Ox3.
CONSTITUTIONAL: Afebrile.
EYES: clear, conjunctivae normal
ENMT: moist mucus membranes, Pharynx nl
RESPIRATORY: Regular respirations, nonlabored, lungs clear.
CARDIOVASCULAR: Regular rate and rhythm, no murmurs, no rubs.
GI: Soft, nontender, normal BS
MUSCULOSKELETAL: Moves with ease. Well perfused. Left posterior thigh from the surface it looks great, No significant swelling or redness, two approximately 5 mm round openings well healed. Very tender to palpate posterior thigh, no palpable
mass. Ambulating well, full range of motion of the extremity
SKIN: Warm, dry, pink
PSYCH: Normal mood and affect. Well kept, interactive and appropriate
NEUROLOGIC: Awake, alert and oriented. No focal neurological deficits
Course
<Mohini Smith, SOLUTIONS SPECIALIST - Last Filed: 05/02/25 17:24>
Orders/Labs/Results
Orders:
Orders
05/02/25 11:06
ECG [Electrocardiogram (*1)] Urgent
Reason for Study: Chest Pain
EKG- Treatment ONCE
05/02/25 11:08
CR Chest - 2 Views Urgent
Comment:
Reason For Exam: chest pain
US Periph Venous LOWER Ext LT Urgent
Comment:
Reason For Exam: left lower leg pain off thinner
05/02/25 11:17
Complete Blood Count/With Diff Urgent
Comprehensive Metabolic Panel Urgent
Glycohemoglobin (HgbA1c) Urgent
PTT Urgent
Troponin I Urgent
05/02/25 14:00
EKG [Electrocardiogram (*1)] Urgent
Reason for Study: Chest Pain
EKG- Treatment ONCE
05/02/25 14:02
Troponin I Urgent
05/02/25 14:13
CT Lower Ext W/iv Cont Lt Urgent
Comment:
Reason For Exam: increasing pain at prev abscess site
HYDROmorphone [Dilaudid] 0.5 mg IV NOW STA
05/02/25 Dinner
Cholesterol Lowering
At Your Request: Full Participation
Cholesterol Lowering: Sodium, 2 Gram
05/02/25 17:07
Magnesium Urgent
05/02/25 17:10
PTT Urgent
Prothrombin Time Urgent
05/02/25 18:39
Admit/Transfer Patient As Directed
Co-Sign Provider:
Level of Care: Inpatient admission
Assign to:: Telemetry
Physician / Group: Dr. Dolan
Diagnosis: Chest pain
Reason for Telemetry: Chest Pain syndromes
Date to Stop Telemetry: 05/04/25
Time to Stop Telemetry: 11:00
Reason for Hospitalization: Chest pain
Expected length of stay greater than two midnights?: Yes
ELOS- Estimated Length of Stay in days: 3
I certify the patient meets the requirements for IP care: Yes
05/02/25 18:40
PRN Pain Medication Management As Directed
May give lesser potent ordered pain med per pt: Yes
preference::
Protocol:: Medication orders for pain may be administered in a
manner that supports deferring to patient preference
when the pt is:
- Requesting an ordered lesser potent pain medication.
Least to most potent pain medications are defined
as: acetaminophen < NSAID < tramadol < opioids
(morphine, oxycodone, hydromorphone).
- Requesting a lesser dose of the same medication IF
ORDERED.
- Requesting a less intrusive route of administration
if both routes are prescribed by the provider (PO <
IV).
05/02/25 18:41
Code Status As Directed
Resuscitation Status: Full Code
05/02/25 18:56
PRN Pain Medication Management As Directed
May give lesser potent ordered pain med per pt: Yes
preference::
Protocol:: Medication orders for pain may be administered in a
manner that supports deferring to patient preference
when the pt is:
- Requesting an ordered lesser potent pain medication.
Least to most potent pain medications are defined
as: acetaminophen < NSAID < tramadol < opioids
(morphine, oxycodone, hydromorphone).
- Requesting a lesser dose of the same medication IF
ORDERED.
- Requesting a less intrusive route of administration
if both routes are prescribed by the provider (PO <
IV).
05/02/25 18:59
Electrocardiogram (*1) Q3H
Reason for Study: Chest Pain
Comment: at admission and Q3H for total of 3, to be done with each troponin
05/02/25 20:22
Alcohol Urgent
B-Hydroxybutyrate Urgent
GGTP Urgent
Magnesium Urgent
Comment: ADD ON
Phosphorus Urgent
Troponin I Q6H
05/02/25 20:32
Urinalysis Routine
Date Specimen was Collected: 05/02/25
Time Specimen was Collected: 20:29
Urine Drug Abuse Screen Routine
Date Specimen was Collected: 05/02/25
Time Specimen was Collected: 20:29
05/02/25 21:05
0.9% Sodium Chloride [Nss (Preservative Free)] See Protocol IV PRN PRN
Acetaminophen [Tylenol] 650 mg PO Q6HPRN PRN mild pain
Enoxaparin Sodium [Lovenox] 40 mg SC QPM
FOLic ACID [Folvite] 1 mg 0.9% Sodium Chloride 50 ml [Nss] 50 ml IV DAILYPRN
Lorazepam [Ativan] 1 mg IV Q1HPRN PRN
Lorazepam [Ativan] 1 mg PO Q2HPRN PRN
Lorazepam [Ativan] 2 mg IV Q1HPRN PRN
Phenobarbital Sodium [Phenobarbital] 260 mg 0.9% Sodium Chloride 100 ml [Nss] 100 ml IV NOW
05/02/25 21:05
CT Chest PE Study Routine
Comment:
Reason For Exam: chest pain
CARDIOLOGY CONSULT Routine
Consulting Provider: Tony Hunt
Was physician already notified: Yes
Case Management Consult Once
Case Management Consult: Other
Comment: Substance abuse counseling
DIETARY IP CONSULT Routine
Reason for Consult: Nutrition support, possible refeeding guidelines
Activity As Directed
Activity Level: As Tolerated
ECG as needed As Directed
ECG as needed for:: Chest Pain
Additional Instructions:: with chest pain x 2 episodes.
INT (Intravenous Needle Therapy) As Directed
Comment: maintain peripheral IV access
Intake/ Output As Directed
Frequency: Per unit guidelines
MSAS SCORE As Directed
MSAS Score 0-4: Repeat MSAS every 2 hours until 0-4 for three consecutive assessments, then every 4 hours x 48
hours.
MSAS Score 5-7: For MILD withdrawl symptoms. Repeat MSAS and RASS every 2 hours
MSAS Score 8-11: For MODERATE withdrawal symptoms. Repeat MSAS and RASS every 1 hour. Consider ICU or IMU
level of care.
MSAS Score > 11: For SEVERE withdrawal symptoms. Repeat MSAS and RASS every 1 hour. Notify provider, consider
ICU level of care.
MSAS Additional Instructions: If no improvement or no decrease in score from severe to moderate within 12
hours, consult psychiatry
MSAS Notify Provider: Notify provider if patient requires more than 10 mg of Lorazepam in eight hour period.
Vital Signs As Directed
Frequency: q4h
Weight As Directed
Frequency: Daily
DX Deep Vein Thrombosis Video Routine
05/02/25 21:21
Oxycodone [Roxicodone] 5 mg PO Q8HPRN PRN
05/02/25 22:00
Gabapentin [Neurontin] 800 mg PO TID
05/03/25 00:00
Thiamine Injection 200 mg IV Q8
05/03/25 01:40
Troponin I Q6H
05/03/25 06:39
Cardiovascular Evaluation IN AM
Complete Blood Count/With Diff IN AM
Comprehensive Metabolic Panel IN AM
Magnesium IN AM
Phosphorus IN AM
Troponin I Q6H
05/03/25 08:00
Aspirin Low Dose EC [Aspir Low (Enteric Coated)] 81 mg PO DAILY
Atorvastatin [Lipitor] 40 mg PO DAILY
Clopidogrel Bisulfate [Plavix] 75 mg PO DAILY
Duloxetine Delayed Release [Cymbalta Delayed Release] 60 mg PO DAILY
FOLic ACID [Folvite] 1 mg PO DAILY
Losartan [Cozaar] 50 mg PO DAILY
Nicotine [Nicoderm Transdermal] 21 mg TRANSDERM DAILY
Pantoprazole [Protonix] 40 mg PO DAILY
Phenobarbital Sodium [Phenobarbital] 97.5 mg IV TID
05/03/25 12:53
Troponin I Q6H
05/04/25 11:00
DC Protocol for Telemetry ONCE
05/05/25 08:00
Phenobarbital [Luminal] 64.8 mg PO TID
05/05/25 20:00
Thiamine HCl [Vitamin B1] 100 mg PO BID
05/07/25 08:00
Phenobarbital [Luminal] 32.4 mg PO TID
Abnormal Lab Results
05/02/25 05/02/25
11:17 14:02
WBC 4.5 L 10^3/uL
(4.8-10.8)
RBC 4.21 L 10^6/uL
(4.70-6.10)
MCV 100.7 H fL
(80.0-94.0)
MCH 33.3 H pg
(27.0-31.0)
Monocytes % 12.4 H %
(1.7-9.3)
Sodium 134 L mmol/L
(135-145)
Troponin I 0.037 H* ng/ml 0.040 H* ng/ml
05/02/25 11:17
05/02/25 11:17
Vital Signs
Initial and Last Documented VS:
Initial Vital Signs
Temp Pulse Resp BP Pulse Ox
36.7 C 85 20 146/97 99
05/02/25 11:01 05/02/25 11:01 05/02/25 11:01 05/02/25 11:01 05/02/25 11:01
Last Documented Vital Signs
Temp Pulse Resp BP Pulse Ox
98.1 F 89 16 159/84 96
05/02/25 11:01 05/02/25 17:10 05/02/25 17:10 05/02/25 17:10 05/02/25 17:10
[employer] consulted with Physician
[employer] consulted with physician?: Yes
Name of Physician Consulted: Breanne
<Kirby Raymundo, DO - Last Filed: 05/07/25 19:01>
Orders/Labs/Results
Orders:
Orders
05/02/25 11:06
ECG [Electrocardiogram (*1)] Urgent
Reason for Study: Chest Pain
EKG- Treatment ONCE
05/02/25 11:08
CR Chest - 2 Views Urgent
Comment:
Reason For Exam: chest pain
US Periph Venous LOWER Ext LT Urgent
Comment:
Reason For Exam: left lower leg pain off thinner
05/02/25 11:17
Complete Blood Count/With Diff Urgent
Comprehensive Metabolic Panel Urgent
Glycohemoglobin (HgbA1c) Urgent
PTT Urgent
Troponin I Urgent
05/02/25 14:00
EKG [Electrocardiogram (*1)] Urgent
Reason for Study: Chest Pain
EKG- Treatment ONCE
05/02/25 14:02
Troponin I Urgent
05/02/25 14:13
CT Lower Ext W/iv Cont Lt Urgent
Comment:
Reason For Exam: increasing pain at prev abscess site
HYDROmorphone [Dilaudid] 0.5 mg IV NOW STA
05/02/25 Dinner
Cholesterol Lowering
At Your Request: Full Participation
Cholesterol Lowering: Sodium, 2 Gram
05/02/25 17:07
Magnesium Urgent
05/02/25 17:10
PTT Urgent
Prothrombin Time Urgent
05/02/25 18:39
Admit/Transfer Patient As Directed
Co-Sign Provider:
Level of Care: Inpatient admission
Assign to:: Telemetry
Physician / Group: Dr. Dolan
Diagnosis: Chest pain
Reason for Telemetry: Chest Pain syndromes
Date to Stop Telemetry: 05/04/25
Time to Stop Telemetry: 11:00
Reason for Hospitalization: Chest pain
Expected length of stay greater than two midnights?: Yes
ELOS- Estimated Length of Stay in days: 3
I certify the patient meets the requirements for IP care: Yes
05/02/25 18:40
PRN Pain Medication Management As Directed
May give lesser potent ordered pain med per pt: Yes
preference::
Protocol:: Medication orders for pain may be administered in a
manner that supports deferring to patient preference
when the pt is:
- Requesting an ordered lesser potent pain medication.
Least to most potent pain medications are defined
as: acetaminophen < NSAID < tramadol < opioids
(morphine, oxycodone, hydromorphone).
- Requesting a lesser dose of the same medication IF
ORDERED.
- Requesting a less intrusive route of administration
if both routes are prescribed by the provider (PO <
IV).
05/02/25 18:41
Code Status As Directed
Resuscitation Status: Full Code
05/02/25 18:56
PRN Pain Medication Management As Directed
May give lesser potent ordered pain med per pt: Yes
preference::
Protocol:: Medication orders for pain may be administered in a
manner that supports deferring to patient preference
when the pt is:
- Requesting an ordered lesser potent pain medication.
Least to most potent pain medications are defined
as: acetaminophen < NSAID < tramadol < opioids
(morphine, oxycodone, hydromorphone).
- Requesting a lesser dose of the same medication IF
ORDERED.
- Requesting a less intrusive route of administration
if both routes are prescribed by the provider (PO <
IV).
05/02/25 18:59
Electrocardiogram (*1) Q3H
Reason for Study: Chest Pain
Comment: at admission and Q3H for total of 3, to be done with each troponin
05/02/25 20:22
Alcohol Urgent
B-Hydroxybutyrate Urgent
GGTP Urgent
Magnesium Urgent
Comment: ADD ON
Phosphorus Urgent
Troponin I Q6H
05/02/25 20:32
Urinalysis Routine
Date Specimen was Collected: 05/02/25
Time Specimen was Collected: 20:29
Urine Drug Abuse Screen Routine
Date Specimen was Collected: 05/02/25
Time Specimen was Collected: 20:29
05/02/25 21:05
0.9% Sodium Chloride [Nss (Preservative Free)] See Protocol IV PRN PRN
Acetaminophen [Tylenol] 650 mg PO Q6HPRN PRN mild pain
Enoxaparin Sodium [Lovenox] 40 mg SC QPM
FOLic ACID [Folvite] 1 mg 0.9% Sodium Chloride 50 ml [Nss] 50 ml IV DAILYPRN
Lorazepam [Ativan] 1 mg IV Q1HPRN PRN
Lorazepam [Ativan] 1 mg PO Q2HPRN PRN
Lorazepam [Ativan] 2 mg IV Q1HPRN PRN
Phenobarbital Sodium [Phenobarbital] 260 mg 0.9% Sodium Chloride 100 ml [Nss] 100 ml IV NOW
05/02/25 21:05
CT Chest PE Study Routine
Comment:
Reason For Exam: chest pain
CARDIOLOGY CONSULT Routine
Consulting Provider: Tony Hunt
Was physician already notified: Yes
Case Management Consult Once
Case Management Consult: Other
Comment: Substance abuse counseling
DIETARY IP CONSULT Routine
Reason for Consult: Nutrition support, possible refeeding guidelines
Activity As Directed
Activity Level: As Tolerated
ECG as needed As Directed
ECG as needed for:: Chest Pain
Additional Instructions:: with chest pain x 2 episodes.
INT (Intravenous Needle Therapy) As Directed
Comment: maintain peripheral IV access
Intake/ Output As Directed
Frequency: Per unit guidelines
MSAS SCORE As Directed
MSAS Score 0-4: Repeat MSAS every 2 hours until 0-4 for three consecutive assessments, then every 4 hours x 48
hours.
MSAS Score 5-7: For MILD withdrawl symptoms. Repeat MSAS and RASS every 2 hours
MSAS Score 8-11: For MODERATE withdrawal symptoms. Repeat MSAS and RASS every 1 hour. Consider ICU or IMU
level of care.
MSAS Score > 11: For SEVERE withdrawal symptoms. Repeat MSAS and RASS every 1 hour. Notify provider, consider
ICU level of care.
MSAS Additional Instructions: If no improvement or no decrease in score from severe to moderate within 12
hours, consult psychiatry
MSAS Notify Provider: Notify provider if patient requires more than 10 mg of Lorazepam in eight hour period.
Vital Signs As Directed
Frequency: q4h
Weight As Directed
Frequency: Daily
DX Deep Vein Thrombosis Video Routine
05/02/25 21:21
Oxycodone [Roxicodone] 5 mg PO Q8HPRN PRN
05/02/25 22:00
Gabapentin [Neurontin] 800 mg PO TID
05/03/25 00:00
Thiamine Injection 200 mg IV Q8
05/03/25 01:40
Troponin I Q6H
05/03/25 06:39
Cardiovascular Evaluation IN AM
Complete Blood Count/With Diff IN AM
Comprehensive Metabolic Panel IN AM
Magnesium IN AM
Phosphorus IN AM
Troponin I Q6H
05/03/25 08:00
Aspirin Low Dose EC [Aspir Low (Enteric Coated)] 81 mg PO DAILY
Atorvastatin [Lipitor] 40 mg PO DAILY
Clopidogrel Bisulfate [Plavix] 75 mg PO DAILY
Duloxetine Delayed Release [Cymbalta Delayed Release] 60 mg PO DAILY
FOLic ACID [Folvite] 1 mg PO DAILY
Losartan [Cozaar] 50 mg PO DAILY
Nicotine [Nicoderm Transdermal] 21 mg TRANSDERM DAILY
Pantoprazole [Protonix] 40 mg PO DAILY
Phenobarbital Sodium [Phenobarbital] 97.5 mg IV TID
05/03/25 12:53
Troponin I Q6H
05/04/25 11:00
DC Protocol for Telemetry ONCE
05/05/25 08:00
Phenobarbital [Luminal] 64.8 mg PO TID
05/05/25 20:00
Thiamine HCl [Vitamin B1] 100 mg PO BID
05/07/25 08:00
Phenobarbital [Luminal] 32.4 mg PO TID
Abnormal Lab Results
05/02/25 05/02/25
11:17 14:02
WBC 4.5 L 10^3/uL
(4.8-10.8)
RBC 4.21 L 10^6/uL
(4.70-6.10)
MCV 100.7 H fL
(80.0-94.0)
MCH 33.3 H pg
(27.0-31.0)
Monocytes % 12.4 H %
(1.7-9.3)
Sodium 134 L mmol/L
(135-145)
Troponin I 0.037 H* ng/ml 0.040 H* ng/ml
05/02/25 11:17
05/02/25 11:17
Vital Signs
Initial and Last Documented VS:
Initial Vital Signs
Temp Pulse Resp BP Pulse Ox
36.7 C 85 20 146/97 99
05/02/25 11:01 05/02/25 11:01 05/02/25 11:01 05/02/25 11:01 05/02/25 11:01
Last Documented Vital Signs
Temp Pulse Resp BP Pulse Ox
98.1 F 89 16 159/84 96
05/02/25 11:01 05/02/25 17:10 05/02/25 17:10 05/02/25 17:10 05/02/25 17:10
<Mohini Smith, SOLUTIONS SPECIALIST - Last Filed: 05/02/25 17:24>
MDM/Problems Addressed
Differential Diagnosis Includes:
abscess of thigh, muscle strain
angina, ID
MDM/Problems Addressed:
60-year-old male with history of CAD, HTN, HLD, CABG, PAD status post stent, anxiety, alcohol use, smoker, admitted here 03/27 to 03/30 for abscess of the left thigh which was drained and area appears to be well-healed
Patient presents for significant pain in the posterior left thigh where he had previous abscess drained. He agrees that the site looks 'great,' but the pain is unbearable. He is requesting something for pain as Aleve has not been helping.
He states he has also had waxing and waning chest pain over the past 4 days. He has a chronic smoker's cough but the chest pain has been worse when he coughs. He states he is currently having chest pain, sharp, 'mild.'
EKG: NSR
2:20 PM:
CBC, CMP with no clinically significant abnormality
Troponin from triage mildly bumped at 0.037 will obtain second troponin
Chest x-ray NAD
Ultrasound of the left thigh radiology report reviewed: IMPRESSION:
No sonographic evidence for LEFT lower extremity deep venous thrombosis.
There is a 10.0 x 1.6 centimeters complex collection within the subcutaneous soft tissues of the posterior thigh which is likely related to known abscess. This is decreased in size from prior CT
(previously 15.0 by 2.6 x 3.8 cm)
Consulted Dr. Elena who treated pt previously, he requests CT scan.
3:00 PM: Second troponin
Slightly higher at 0.[address] scan LLE radiology report reviewed: IMPRESSION:
The collection within the superficial posterior soft tissues of the thigh has significantly decreased in size from prior and now appears completely collapsed with no discernible fluid within the collection.
Case discussed with who examined pt. and agrees He used to see a polisher and sander through [place] but has not been happy with their care and currently does not have a polisher and sander to follow-up with. He has been having chest
discomfort over the last several days and troponins are 0.37 and then 0.040. In 2020 his troponin was undetected. He had bypass a couple of years ago. He also has increasing concerns at the left thigh however the CT is unremarkable. Given the chest
discomfort with abnormal troponin will recommend keeping patient in the hospital.
3:50 p.m.
Hospitalist notified of admission.
Patient Sister at bedside, she informs me that patient drinks 15 beers a day and he admits to this and also he admits to drinking wine sometimes at dinner. They are requesting to DOMINICK consult, Dominick has been notified
No signs of withdrawal.
<Mohini Smith, SOLUTIONS SPECIALIST - Last Filed: 05/02/25 17:24>
*Pulse Oximetry
SaO2: 98
Oxygen Mode of Delivery: Room air
Patient hypoxic: no
*EKG
EKG Intrepretation Date: 05/02/25
Interpretation: normal
Heart Rate: 86
Rate: normal
Rhythm: sinus
Dickinson: normal axis
Interval: normal interval
QRS Pattern: normal QRS
Ischemia: no ischemia
*Critical Care Note
Total Time (30-74mins, 75-104mins- exclusive of procedures): Not Applicable
ED Attending Note
<Mohini Smith, SOLUTIONS SPECIALIST - Last Filed: 05/02/25 17:24>
-
Portions of this chart may have been created with voice recognition software.� Occasional wrong word or��sound alike� substitutions may have occurred due to the inherent limitations of voice recognition software.
<Kirby Raymundo, DO - Last Filed: 05/07/25 19:01>
ED Attending Note
Patient seen and examined by attending physician: Yes
I performed the substantive portion of visit, reviewed & personally made and approve the management plan that is documented in note by myself or XENIA.: Yes
ED Attending Note:
I evaluated the patient at bedside. He used to see a polisher and sander through [place] but has not been happy with their care and currently does not have a polisher and sander to follow-up with. He has been having chest discomfort over the last several
days and troponins are 0.37 and then 0.040. In 2020 his troponin was undetected. He had bypass a couple of years ago. He also has increasing concerns at the left thigh however the CT is unremarkable. Given the chest discomfort with abnormal
troponin will recommend keeping patient in the hospital.
Discharge Plan
Departure
Patient Disposition: Admit
Date of Disposition: 05/02/25
Time of Disposition: 15:56
Admit to: Telemetry
Presentation/result/management discussed w/ accepting MD/DO: Hospitalist
Condition: Fair
Discharge Problem:
Chest pain, Left thigh pain
Interventions
Interventions:
*Risk Screen - Suicide Last Done: 05/02/25 23:05
*General Assessment Last Done: 05/02/25 16:29
*Neglect/Abuse Screening Last Done: 05/02/25 12:20
*ED- Fall Risk Assessment Last Done: 05/02/25 12:20
*ED COVID-19 Vaccine History Last Done: 05/02/25 23:05
*ED Influenza Vaccine History Last Done: 05/02/25 12:20
*Nursing Disposition Last Done: 05/02/25 21:04
ED-Musculoskeletal Assessment Last Done: 05/02/25 12:20
Discharge Date and Time
Discharge Date/Time: 05/02/25 21:05
[2025-05-02] MEDS: DILAUDID 0.5 MG IV (14:24)
[2025-05-02 14:52] LABS: Troponin I 0.040 ng/ml
[2025-05-02 17:41] LABS: Magnesium 2.0 mg/dl (1.6-2.3)
--- NOTE | 2025-05-02 19:03 | HPS.HSE ---
Addendum entered and electronically signed by Kayla Dolan MD 05/02/25 20:53:
I personally performed a history and physical exam of the patient and discussed management with the resident. I reviewed the resident's note and agree with the documented findings and plan of care HPI/CC.
GENERAL: well developed, well nourished, male in no apparent distress
HEENT:NC/AT, no O2 requirements
HEART: regular rate and rhythm, +S1, +S2, mildly tachycardic
LUNGS : faint wheezes with expiration bilaterally
ABDOM: soft, nontender, nondistended, + bowel sounds
EXT: no cyanosis, clubbing, or edema, left leg posteriorly without redness, warmth, firmness--small eraser sized nodule without notable findings
NEUROLOGIC: grossly intact, positive tremors to both hands
Chest pain--possible etiologies include cardiac (unstable angina, ACS), pulmonary (PE, doubt PNA), GERD (doubt as not describing typical reflux symptoms), costochondritis as reproducible on exam--ADMIT to TELE--consult cards--check ECHO--check
lipids, trend troponins and EKGs, check CT scan r/o PE, US neg for DVT, start protonix
Leg pain--differentials include DVT, myositis, muscle pulls, statin myopathy, etc--US neg for DVT, check CPK, CRP, ESR--CT scan without abscess
Alcohol abuse--drinks 6 beers and 2 glasses of wine daily--has never had symptoms of DTs but does get tremulous if stops drinking abruptly--indicated he wants to stop--consult BCares--MSAS protocol, phenobarbital taper, start thiamine, folate, check
magnesium
essential HTN -- cont losartan
Hyperlipidemia--cont statin
PVD/PAD--cont asa/plavix
Chronic pain (arthritis) with possible Chronic opioid dependency although pt says he does not take the oxycodone regularly--cont gabapentin
depression--cont duloxetine
DVT proph
code status--full code
Original Note:
Family Physician
-
Family Physician: SUN Tolliver
Chief Complaint
-
60-year-old male patient presents to ED on 05/02/2025 complaining of significant chest pain and posterior left thigh pain. Patient states both of these issues began simultaneously around 4 to 5 days ago.
History of Present Illness
60-year-old male patient presents to ED on 05/02/2025 complaining of significant chest pain and posterior left thigh pain. Patient states both of these issues began simultaneously around 4 to 5 days ago. He describes the chest pain as waxing
and waning and states that coughing makes it worse. He admits to having previous chest pain before when he had his previous bypass surgery in 2021. Currently patient describes his chest pain as mild. He states that is not bothering him as much but
he still feels it is in his chest area. He says it does not radiate or change with position. He also states that he previously had an abscess drained in his posterior left thigh S/P left tibial fracture repair surgery. States now he has unbearable
pain in that area. Patient states he thought he was healing really well s/p abscess drainage procedure, but as time went on he noticed an increase in the severity of his leg pain while doing daily activities. He describes the leg pain as being all
over his left posterior thigh area. patient also states that he quit smoking this past Wednesday as soon as he started feeling the chest pain. He coughs up a lot of painful phlegm in the morning. He also states that coincidentally the pain started
right around the time he ran out of his Plavix medication about a week ago.
Medical History
Past Medical History
Past Medical History: Reports CAD (2 vessel), HTN and Hypercholesterolemia
Additional Past Medical History:
DVT, PAD
Past Surgical History: Reports Cardiac (Open heart surgery (2021) Left Arteriogram w/ Distal sfa/pop stent (2023) ) and Orthopedic (Left tibial shaft fracture surgery (2023) Left Posterior Thigh Muscle Abscess S/P Drainage (03/01/25-03/04/25))
Social History
Tobacco: Smoker (Stopped this past Wednesday after experiencing chest pains. Has been smoking 1PPD for 40 years)
Alcohol: Chronic Alcoholic (States he has 6 bottles of beer and 2 glasses of wine every night. )
Drug: Marijuana (Uses it nightly to help him go to sleep.)
Personal: ( has dementia and lives in assisted living facility)
Living: Alone
Employment: Retired (Used to do [employer] work.)
Family History
Family History: CAD (Mother: Heart Surgery. Father: Heart Surgery, Alcoholism)
Allergies / Home Medications
Allergies reflects when Allergies were last updated in [facility].
Home Medications with original date entered in [facility]
Allergy/Medication List:
NKDA
Medication List:
Atorvastatin Calcium 40 mg
Losartan Potassium 25 mg
Magnesium Oxide
Plavix 75 mg
Aspirin 81 mg
Duloxetine 60 mg
Gabapentin 800 mg TID
Review of Systems
-
History Source: Patient
A 12 point ROS was completed and negative except as noted: Yes
Respiratory: Reports Cough (Smokers cough)
Cardiac: Reports Chest Pain (Mild)
Musculoskeletal: Reports Muscle Pain (Left Posterior Thigh Pain)
Psych: Reports Calm
Physical Exam
Vital Signs
Vital Signs
Temp Pulse Resp BP Pulse Ox
98.1 F 102 19 154/84 96
05/02/25 11:01 05/02/25 18:30 05/02/25 18:30 05/02/25 18:00 05/02/25 18:30
Physical Exam
General: Well Developed, No Apparent Distress, Comfortable and Conversant
HEENT: NormoCephalic, Anicteric and Atraumatic
Respiratory: Wheezes (Mild wheezing noted in upper lobes upon exertion. )
Cardiac: S1/S2 and Tachycardia
Breast: Deferred by me
GI: Soft, Non Tender, Non Distended and Normal Bowel Sounds
Genito-urinary: Deferred by me
Musculoskeletal: Other (Pain in Left Posterior Thigh Area. Moves well. Well perfused. Surface looks good. Well healed. Tender to palpation. Ambulates well. Full ROM)
Skin: Dry
Neuro: AO x 3
Psych: Calm
Laboratory Results
-
05/02/25 11:17
05/02/25 11:17
Laboratory Results
APTT 27.0 Sec (23.4-35.0) 05/02/25 11:17
Total Bilirubin 0.4 mg/dl (0.2-1.3) 05/02/25 11:17
AST 32 U/L (17-59) 05/02/25 11:17
ALT 28 U/L (0-50) 05/02/25 11:17
Alkaline Phosphatase 67 U/L (38-126) 05/02/25 11:17
Troponin I 0.040 ng/ml H* 05/02/25 14:02
chest x-ray from 05/02/2025: No acute cardiopulmonary abnormality.
Peripheral vascular ultrasound from 05/02/2025: No sonographic evidence for left lower extremity DVT. There is a 10.0 x 1.6 cm complex collection within the subcutaneous soft tissues of the posterior thigh which is likely related to known abscess.
This is decreased in size from prior CT.
Lower extremity CT from 05/02/2025: The collection within the superficial posterior soft tissues of the thigh has significantly decreased in size from prior and now appears completely collapsed with no discernible fluid within the collection.
Data Reviewed
-
CT Scan: Report Reviewed by me and Discussed with Physician
Ultrasound: Report Reviewed by me and Discussed with Physician
Lab Data: Labs Reviewed by me and Discussed with Physician
Impression/Plan
-
IMPRESSION:
60-year-old male patient presents to ED on 05/02/2025 complaining of significant chest pain and posterior left thigh pain. Patient states both of these issues began simultaneously around 4 to 5 days ago. He describes the chest pain as waxing
and waning and states that coughing makes it worse. He admits to having previous chest pain before when he had his previous bypass surgery in 2021. Currently patient describes his chest pain as mild. He states that is not bothering him as much but
he still feels it is in his chest area. He says it does not radiate or change with position. He also states that he previously had an abscess drained in his posterior left thigh S/P left tibial fracture repair surgery. States now he has unbearable
pain in that area. Patient states he thought he was healing really well s/p abscess drainage procedure, but as time went on he noticed an increase in the severity of his leg pain while doing daily activities. He describes the leg pain as being all
over his left posterior thigh area. patient also states that he quit smoking this past Wednesday as soon as he started feeling the chest pain. He coughs up a lot of painful phlegm in the morning. He also states that coincidentally the pain started
right around the time he ran out of his Plavix medication about a week ago.
PLAN:
#Chest pain
Treat pain with 325 mg Acetaminophen Q4Hrs
Trend troponins
Consult cardiology
Order serial EKGs
Echo ordered. Workup for the chest pain is much
Order CT of the chest to rule out clot
#Leg pain
Recent ultrasound results may have ruled out DVT but PE is still possibility
CT angiogram ordered.
Order lab work�check for CPK levels (indicating inflammatory process).
CTA of the lower extremity not only rules out abscesses but also muscle tears as etiology.
#Alcohol abuse
Monitor for withdrawal symptoms such as tremors hypertension and tachycardia.
Phenobarbital ordered to treat withdrawal symptoms.
M mare protocol initiated.
Check magnesium, calcium and phosphate levels.
Replenish thiamine and folate.
Consider ordering B CARES consult.
#Hyperlipidemia
Continue statin
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
#DAPT
Continue clopidogrel and aspirin
#Chronic opioid dependency
Monitor for this.
[2025-05-02 20:39] LABS: Urine Character Clear (Clear)
[2025-05-02 20:43] LABS: INR 0.91; PT 12.7 Sec (11.4-14.6)
[2025-05-02 20:44] LABS: APTT 28.1 Sec (23.4-35.0)
[2025-05-02 21:02] LABS: GGTP 69 U/L (15-73)
[2025-05-02 21:12] LABS: Troponin I 0.041 ng/ml
[2025-05-02 21:25] LABS: Magnesium 2.1 mg/dl (1.6-2.3)
--- NOTE | 2025-05-02 21:42 | PTCARENOTE ---
Pt transported from ED to 3W via stretcher. Pt independent from stretcher to bed, vitals stable, pt placed on TELE monitor. Oriented to room and call chavez within reach.
[2025-05-02] MEDS: PHENOBARBITAL 104 MG IV (22:08)
[2025-05-02] MEDS: LOVENOX 40 MG SC (22:45)
[2025-05-02] MEDS: NEURONTIN 800 MG PO (22:45)
[2025-05-02] MEDS: THIAMINE INJECTION 200 MG IV (23:33)
[2025-05-03 02:50] LABS: Troponin I 0.040 ng/ml
[2025-05-03 03:45] VITALS: BP 134/95
[2025-05-03 06:00] VITALS: BMI 22.3
[2025-05-03 06:51] LABS: Hematocrit 42.5 % (39.0-52.0); Hemoglobin 14.5 g/dL (13.0-18.0); Mean Corp Hgb Conc. 34.1 g/dL (33.0-37.0); Mean Corpuscular Volume 100.5 fL (80.0-94.0); Nucleated Red Blood Cells % 0 % (-); Platelet Count 189 10^3/uL (130-400); Red Cell Dist. Width 12.7 % (11.5-14.5)
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
[2025-05-03 07:26] LABS: Troponin I 0.038 ng/ml
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
[2025-05-03 07:38] VITALS: BP 119/82
[2025-05-03 07:39] LABS: ALT (SGPT) 28 U/L (0-50); AST (SGOT) 28 U/L (17-59); Albumin 4.1 g/dl (3.5-5.0); Alkaline Phosphatase 76 U/L (38-126); Blood Urea Nitrogen 11 mg/dl (9-20); Calcium 9.1 mg/dl (8.4-10.2); Carbon Dioxide 27 mmol/L (22-30); Chloride 106 mmol/L (98-107); Estimated Creatinine Clearance 75 ml/min; Glucose 85 mg/dl (70-99); HDL Cholesterol 93 mg/dl; LDL Cholesterol, Calculated 53 mg/dl; Magnesium 2.1 mg/dl (1.6-2.3); Potassium 4.0 mmol/L (3.5-5.1); Sodium 135 mmol/L (135-145); Total Protein 7.0 g/dl (6.3-8.2); Very Low Density Lipoprotein 18 mg/dl (0-30); eGFR > 60.00
[2025-05-03] MEDS: NICODERM TRANSDERMAL 21 MG TRANSDERM (08:03)
[2025-05-03] MEDS: COZAAR 50 MG PO (08:03)
[2025-05-03] MEDS: LIPITOR 40 MG PO (08:03)
[2025-05-03] MEDS: ASPIR LOW (ENTERIC COATED) 81 MG PO (08:03)
[2025-05-03] MEDS: NEURONTIN 800 MG PO ×3 (08:05→21:00)
[2025-05-03] MEDS: PROTONIX 40 MG PO (08:05)
[2025-05-03] MEDS: CYMBALTA DELAYED RELEASE 60 MG PO (08:05)
[2025-05-03] MEDS: THIAMINE INJECTION 200 MG IV ×3 (08:05→23:36)
[2025-05-03] MEDS: PLAVIX 75 MG PO (08:05)
[2025-05-03] MEDS: PHENOBARBITAL 97.5 MG IV ×3 (08:08→21:00)
[2025-05-03] MEDS: FOLVITE 1 MG PO (08:16)
[2025-05-03 08:48] LABS: Glycohemoglobin (HgbA1c) 4.8 % (4.0-5.9)
[2025-05-03 10:59] VITALS: BP 124/82
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
[2025-05-03 13:55] LABS: Troponin I 0.029 ng/ml
--- NOTE | 2025-05-03 14:29 | CM ---
Patient seen at bedside with physicians. Patient states he lives with his son in a 2 story home. Patient is not driving at this time. Patient stated he stays on the first floor. Patient expressed interest in going to rehab but wanted to go home
first. Patient agreed to think about it and talk to the [employer] sales representative health insurance again. Patient PCP Dr. Carlie Bragg and he uses the [facility] in [address] Patient indicated that he would have a ride home with family when medically
appropriate for discharge. CM will continue to follow for discharge planning needs.
Plan; home with [employer] to follow up
[2025-05-03 15:16] VITALS: BP 119/78
[2025-05-03] MEDS: LOVENOX 40 MG SC (17:12)
[2025-05-03] MEDS: TOPROL XL 12.5 MG PO (17:13)
[2025-05-03 19:00] VITALS: BP 115/78
[2025-05-03 23:00] VITALS: BP 109/63
[2025-05-04 03:05] VITALS: BP 121/86
[2025-05-04 04:46] VITALS: BMI 22.4
[2025-05-04 07:19] LABS: Hematocrit 40.3 % (39.0-52.0); Hemoglobin 14.2 g/dL (13.0-18.0); Mean Corp Hgb Conc. 35.2 g/dL (33.0-37.0); Mean Corpuscular Volume 97.8 fL (80.0-94.0); Nucleated Red Blood Cells % 0 % (-); Platelet Count 192 10^3/uL (130-400); Red Cell Dist. Width 12.5 % (11.5-14.5)
[2025-05-04 07:32] LABS: ALT (SGPT) 26 U/L (0-50); AST (SGOT) 26 U/L (17-59); Albumin 4.3 g/dl (3.5-5.0); Alkaline Phosphatase 68 U/L (38-126); Blood Urea Nitrogen 13 mg/dl (9-20); Calcium 9.1 mg/dl (8.4-10.2); Carbon Dioxide 25 mmol/L (22-30); Chloride 105 mmol/L (98-107); Estimated Creatinine Clearance 75 ml/min; Glucose 98 mg/dl (70-99); Magnesium 2.0 mg/dl (1.6-2.3); Potassium 3.9 mmol/L (3.5-5.1); Sodium 133 mmol/L (135-145); Total Protein 7.3 g/dl (6.3-8.2); eGFR > 60.00
[2025-05-04 07:33] VITALS: BP 106/71
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
[2025-05-04] MEDS: PHENOBARBITAL 97.5 MG IV ×3 (09:04→21:10)
[2025-05-04] MEDS: LIPITOR 40 MG PO (09:06)
[2025-05-04] MEDS: TOPROL XL 12.5 MG PO (09:06)
[2025-05-04] MEDS: FOLVITE 1 MG PO (09:07)
[2025-05-04] MEDS: CYMBALTA DELAYED RELEASE 60 MG PO (09:07)
[2025-05-04] MEDS: PLAVIX 75 MG PO (09:07)
[2025-05-04] MEDS: ASPIR LOW (ENTERIC COATED) 81 MG PO (09:07)
[2025-05-04] MEDS: PROTONIX 40 MG PO (09:07)
[2025-05-04] MEDS: COZAAR 50 MG PO (09:07)
[2025-05-04] MEDS: NEURONTIN 800 MG PO ×3 (09:07→21:11)
[2025-05-04] MEDS: THIAMINE INJECTION 200 MG IV ×2 (09:08→17:40)
[2025-05-04 09:16] LABS: C-Reactive Protein < 5.00 mg/L (0.0-10.00)
[2025-05-04 10:50] VITALS: BP 115/70
--- NOTE | 2025-05-04 11:20 | PN.CDI ---
Addendum entered and electronically signed by Kayla Dolan MD 05/04/25 19:22:
documentation complete
Original Note:
CDI
- -
CDI:
Physician Documentation Request
Admit Date: 05/02/25 19:17
Dear Doctor,
Patient admitted for chest pain.
ER Physician Documentation: 'patient drinks 15 beers a day and he admits to this and also he admits to drinking wine sometimes at dinner.'
05/03 Hospitalist PN: 'Alcohol abuse--drinks 6 beers and 2 glasses of wine daily--has never had symptoms of DTs but does get tremulous if stops drinking abruptly...It is documented and I 'patient feels it is unlikely he can give up alcohol and
reports he will begin drinking when he returns home. Patient reports he is a chronic alcoholic and is not interested in cessation at this time despite recommendations to do so'.'
If possible, please provide further specificity as outlined below:
Alcohol dependence
Alcohol abuse
Other
Use of terms such as suspected, likely, concern for, or probable (associated with a specific diagnosis that is being evaluated, monitored, or treated as if it exists) are acceptable and can be coded in the inpatient setting, when documented at the
time of discharge.
Thank you,
Cortney Hammonds RN, BSN
CDI Specialist
Available via [employer] text
Please use your independent medical judgment in providing your response.
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
[2025-05-04] MEDS: NICODERM TRANSDERMAL 21 MG TRANSDERM (13:14)
[2025-05-04 15:23] VITALS: BP 131/73
--- NOTE | 2025-05-04 16:39 | CM ---
Patient seen at bedside with physicians. Patient willing to go to available bed at [place] tomorrow per [facility]. Patient understanding that he will need to go directly to facility but his sister is bringing him clothing. CM called to [facility] and
left VM. Per Jen from [facility] they will reach out to patient for transfer tomorrow. Physician aware. CM will continue to follow for discharge planning needs.
Plan; [facility] tomorrow
[2025-05-04] MEDS: LOVENOX 40 MG SC (17:41)
[2025-05-04 23:00] VITALS: BP 116/59
[2025-05-05] MEDS: THIAMINE INJECTION 200 MG IV ×2 (00:25→09:29)
[2025-05-05 06:00] VITALS: BMI 22.4
[2025-05-05 07:00] VITALS: BP 121/77
[2025-05-05 09:08] LABS: Hematocrit 46.2 % (39.0-52.0); Hemoglobin 15.6 g/dL (13.0-18.0); Mean Corp Hgb Conc. 33.8 g/dL (33.0-37.0); Mean Corpuscular Volume 100.2 fL (80.0-94.0); Red Cell Dist. Width 12.5 % (11.5-14.5)
[2025-05-05 09:09] LABS: Nucleated Red Blood Cells % 0 % (-)
[2025-05-05 09:23] VITALS: BP 121/77
[2025-05-05 09:25] LABS: ALT (SGPT) 25 U/L (0-50); AST (SGOT) 29 U/L (17-59); Albumin 4.7 g/dl (3.5-5.0); Alkaline Phosphatase 56 U/L (38-126); Blood Urea Nitrogen 12 mg/dl (9-20); Calcium 9.2 mg/dl (8.4-10.2); Carbon Dioxide 28 mmol/L (22-30); Chloride 102 mmol/L (98-107); Estimated Creatinine Clearance 67 ml/min; Glucose 111 mg/dl (70-99); Magnesium 2.0 mg/dl (1.6-2.3); Potassium 4.6 mmol/L (3.5-5.1); Sodium 137 mmol/L (135-145); Total Protein 7.7 g/dl (6.3-8.2); eGFR > 60.00
[2025-05-05] MEDS: TOPROL XL 12.5 MG PO (09:27)
[2025-05-05] MEDS: PROTONIX 40 MG PO (09:27)
[2025-05-05] MEDS: NICODERM TRANSDERMAL 21 MG TRANSDERM (09:28)
[2025-05-05] MEDS: FOLVITE 1 MG PO (09:28)
[2025-05-05] MEDS: LIPITOR 40 MG PO (09:28)
[2025-05-05] MEDS: NEURONTIN 800 MG PO (09:28)
[2025-05-05] MEDS: ASPIR LOW (ENTERIC COATED) 81 MG PO (09:28)
[2025-05-05] MEDS: LUMINAL 64.8 MG PO (09:28)
[2025-05-05] MEDS: CYMBALTA DELAYED RELEASE 60 MG PO (09:29)
[2025-05-05] MEDS: PLAVIX 75 MG PO (09:29)
[2025-05-05] MEDS: COZAAR 50 MG PO (09:29)
[2025-05-05 10:49] LABS: Platelet Count 227 10^3/uL (130-400)
[2025-05-05 11:00] VITALS: BP 120/89
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
--- NOTE | 2025-05-05 14:58 | CM ---
Patient has been medically cleared for discharge to [facility]. [facility] provided [employer] transportation. IMM completed.
--- NOTE | 2025-05-05 15:44 | W.DCSUMMARY ---
Addendum entered and electronically signed by Kayla Dolan MD 05/05/25 18:25:
Read, reviewed, and agree. See same day progress note for additional details. Time spent coordinating care, DC planning, review of DC plan of care with resident, transition of care, review of records in EMR, med rec, consults, notes, d/w
consultants, nursing, family, and CM = 33 minutes
Pt agreeable and stable for discharge to [facility].
Original Note:
Discharge Summary
Discharge Data
Date of Admission: 05/02/25
Date of Discharge: 05/05/25
-
Pending Results: No
Hospital Course
60-year-old male patient presents to ED on 05/02/2025 complaining of significant chest pain and posterior left thigh pain. Patient states both of these issues began simultaneously around 4 to 5 days ago. He describes the chest pain as waxing
and waning and states that coughing makes it worse. He admits to having previous chest pain before when he had his previous bypass surgery in 2021. Currently patient describes his chest pain as mild. He states that is not bothering him as much but
he still feels it is in his chest area. He says it does not radiate or change with position. He also states that he previously had an abscess drained in his posterior left thigh S/P left tibial fracture repair surgery. States now he has unbearable
pain in that area. Patient states he thought he was healing really well s/p abscess drainage procedure, but as time went on he noticed an increase in the severity of his leg pain while doing daily activities. He describes the leg pain as being all
over his left posterior thigh area. patient also states that he quit smoking this past Wednesday as soon as he started feeling the chest pain. He coughs up a lot of painful phlegm in the morning. He also states that coincidentally the pain started
right around the time he ran out of his Plavix medication about a week ago. This morning patient was in good spirits. He appeared to be doing better and denied any constitutional symptoms like fever or chills. His alcohol withdrawal symptoms had
also improved. He denied any current chest pain and stated that his left posterior thigh pain has decreased as well. His cardiac ECHO showed EF 50-55%. They trend troponins, EKGs and lipids. CT Scan of the chest illustrated mild cardiomegaly without
evidence for acute pulmonary edema and ruled out PE. Ultrasound negative for DVT. CT scan of the lower extremity abscesses. Patient is feeling better than when he first arrived and rates his chest pain and leg pain a 1 out of 10. Cardiology
signed off. [facility] consulted to coordinate his discharge to rehab before he can go home. Patient will be discharged today with refills on all his home medications.
Discharge Plan
-
Patient Disposition: Psych Facility
Discharge Diagnosis/Procedures: Chest pain, leg pain, alcohol abuse, essential hypertension, hyperlipidemia, peripheral artery disease, peripheral vascular disease, chronic pain with possible opioid dependency, depression
Condition: Fair
Diet: Low Cholesterol
Activity: No restrictions
Driving Restrictions: No driving
Bathing Restrictions: None
Activity Restrictions/Additional Instructions:
F/U with PCP in less than a week.
Referrals:
Charu Forrest PA-C [Specified Professional Personl, Cardiology] - 06/19/25 8:20 am
Referral Note: You have an appointment with Dr. Hunt's physician academic support assistant at the [place] office. Please call if questions.
Kyra Bragg CRNP [Family Provider]
Luis E Thomas MD [Non-Admitting Privileges, Internal Medicine]
Prescriptions:
Continued
atorvastatin 40 mg Tablet
40 mg PO DAILY
clopidogrel 75 mg Tablet
75 mg PO DAILY
aspirin 81 mg Tablet,Delayed Release (Dr/Ec)
81 mg PO DAILY
duloxetine 60 mg capsule,delayed release(DR/EC)
60 mg PO DAILY
gabapentin 800 mg tablet
800 mg PO TID
losartan 50 mg Tablet
50 mg PO DAILY Qty: 30 0RF
Discontinued
acetaminophen [Tylenol] 325 mg Tablet
650 mg PO Q6HPRN PRN (Reason: mild pain)
pantoprazole 40 mg Tablet,Delayed Release (Dr/Ec)
40 mg PO DAILY Qty: 30 0RF
nicotine 21 mg/24 hr Patch 24 Hour
21 mg transdermal DAILY Qty: 30 0RF
oxycodone 5 mg capsule
5 mg PO Q8HPRN PRN (Reason: moderate pain)
Discharge Orders:
Discharge Patient (As Directed); Ordered 05/05/25
Ordered By: Romeo Huynh
Discharge Date and Time
Discharge Date/Time: 05/05/25 11:56
Print Language: NORWEGI[place]
== END 2025-05-05 11:56 | disposition other institution (70) | DRG 605 ==
LOC: 3 WEST ACU 19:17
PROVIDERS: Emergency Medicine; Registered Nurse; ADMITTING PHYSICIAN Internal Medicine; CONSULT PHYSICIAN Nuclear Medicine Nuclear Cardiology; EMERGENCY PHYSICIAN Emergency Medicine; FAMILY PHYSICIAN Nurse Practitioner Primary Care
DX: S20.214A Contusion of middle front wall of thorax, initial encounter (principal); I5A Non-ischemic myocardial injury (non-traumatic); F11.20 Opioid dependence, uncomplicated; Y09 Assault by unspecified means; R07.89 Other chest pain; F10.10 Alcohol abuse, uncomplicated; I10 Essential (primary) hypertension; E78.00 Pure hypercholesterolemia, unspecified; I73.9 Peripheral vascular disease, unspecified; I25.10 Atherosclerotic heart disease of native coronary artery without angina pectoris; F32.A Depression, unspecified; G89.29 Other chronic pain; F17.210 Nicotine dependence, cigarettes, uncomplicated; Z79.899 Other long term (current) drug therapy; Z79.02 Long term (current) use of antithrombotics/antiplatelets; Z91.148 Patient's other noncompliance with medication regimen for other reason; Z95.1 Presence of aortocoronary bypass graft; Z95.5 Presence of coronary angioplasty implant and graft
CPT/HCPCS: 71046; 71275; 73701; 80053; 80061; 80306; 80307; 81003; 82010; 82077; 82550; 82977; 83036; 83735; 84100; 84484; 85025; 85610; 85652; 85730; 86140; 93005; 93306; 93971; 96374; 99285; 99406; Q9967

== ENCOUNTER 2025-05-30 14:42 | Emergency (ER) | payer MEDICARE, SELFPAY ==
[2025-05-30 15:00] VITALS: BP 120/91
[2025-05-30 15:18] VITALS: BMI 24.0
[2025-05-30 15:22] VITALS: BP 113/73
--- NOTE | 2025-05-30 17:15 | ED.GENMED ---
History of Present Illness
General
Chief Complaint: Back Pain
Time Seen by Provider: 05/30/25 15:57
History of Present Illness
History of Present Illness:
60-year-old male with history of hypertension, hyperlipidemia, and CAD presents to the emergency department for evaluation of bilateral lower extremity claudication and low back pain. States he has had progressively worsening claudication for
several years, initially this was felt to be due to peripheral arterial disease and he has since undergone bilateral lower extremity bypass and stenting at [facility]. He states these occurred approximately 2 years ago and he
continues to follow-up with vascular surgery, per patient his arterial ultrasounds have been clean and he is scheduled for repeat screening ultrasound next month. Maintains compliance with clopidogrel. However his claudication symptoms are getting
worse, he is only able to walk about 20 or 30 steps before symptoms become severe. He also has low back pain. Denies any loss of bladder or bowel continence, denies any saddle anesthesia
Past History
Past History
ED Past Medical History: CAD, HTN, Hypercholesterolemia, Psychiatric and Other (Peripheral vascular disease, chronic bilateral leg pain/peripheral neuropathy, lumbar disc disease)
ED Past Surgical History: Cardiac (CABG 2021), Orthopedic and Other (Right femoropopliteal bypass, left lower extremity arterial stent)
Social History
Tobacco: Smoker
Alcohol: Daily
Drug: None
Personal: Single
Living: with roommate
Employment: Not employed
Family History
Family History: Other (Noncontributory)
Review of Systems
Review of Systems
Allergies reviewed?: Yes
All Other Systems: ROS reviewed and negative except as documented in HPI and ROS
Phy Exam
Physical Exam
Physical Exam:
GEN: Well appearing, NAD, WDWN
HEENT: Oral mucosa moist, no scleral icterus
Cardiac: Regular rate
Lung: No respiratory distress, no tachypnea
MSK: No gross deformity or injuries. Bilateral lower extremity range of motion normal in all sainz. Bilateral DP and PT pulses are strong by Doppler, capillary refill less than 2 seconds
Skin: Good color, no pallor or jaundice, no rashes
Neuro: AO x3, moves all extremities freely, patellar reflexes 1+ bilaterally, sensation to lower extremities intact globally with no limitation
Psych: Calm, cooperative
Course
Orders/Labs/Results
Orders:
Orders
05/30/25 16:17
CR Lumbar Spine Comp Min 4 Vw* Urgent
Comment:
Reason For Exam: back pain/neurogenic claudication
Vital Signs
Initial and Last Documented VS:
Initial Vital Signs
Temp Pulse Resp BP Pulse Ox
98 F 115 20 120/91 96
05/30/25 15:00 05/30/25 15:00 05/30/25 15:00 05/30/25 15:00 05/30/25 15:00
Last Documented Vital Signs
Temp Pulse Resp BP Pulse Ox
98 F 85 18 132/78 96
05/30/25 15:00 05/30/25 18:00 05/30/25 18:00 05/30/25 18:00 05/30/25 18:00
MDM/Problems Addressed
MDM/Problems Addressed:
Symptoms highly likely to represent neurogenic claudication in the setting of spinal stenosis. X-rays obtained showed no evidence for mass lesion or acute bony pathology. Patient be treated with a course of corticosteroids as well as opiates for
pain given that he is on antiplatelet therapy chronically. Encouraged him to follow-up with his primary care physician for MRI although at this time does not require emergent MRI as there are no symptoms of emergent spinal cord compression present
*Pulse Oximetry
SaO2: 96
Oxygen Mode of Delivery: Room air
Patient hypoxic: no
*Critical Care Note
Total Time (30-74mins, 75-104mins- exclusive of procedures): Not Applicable
ED Attending Note
-
Portions of this chart may have been created with voice recognition software.� Occasional wrong word or��sound alike� substitutions may have occurred due to the inherent limitations of voice recognition software.
Discharge Plan
Departure
Patient Disposition: Home (Routine Discharge)
Date of Disposition: 05/30/25
Time of Disposition: 17:15
Patient with high blood pressure during this ER visit?: No
Discharge Problem:
Lumbar spinal stenosis
Instructions: Spinal Stenosis Strengthening Exercises
Prescriptions:
New
prednisone 10 mg tablet
10 mg PO DIRECTED Qty: 43 0RF
Rx Instructions:
Once daily as follows: 60, 60, 50, 50, 40, 40, 30, 30, 20, 20, 10, 10, 5, 5
oxycodone-acetaminophen [Percocet] 5-325 mg tablet
1 tab PO Q6HPRN PRN (Reason: pain) Qty: 10 0RF
No Action
atorvastatin 40 mg Tablet
40 mg PO DAILY
clopidogrel 75 mg Tablet
75 mg PO DAILY
aspirin 81 mg Tablet,Delayed Release (Dr/Ec)
81 mg PO DAILY
duloxetine 60 mg capsule,delayed release(DR/EC)
60 mg PO DAILY
gabapentin 800 mg tablet
800 mg PO TID
losartan 50 mg Tablet
50 mg PO DAILY Qty: 30 0RF
Referrals:
Kyra Bragg CRNP [Family Provider]
Activity Restrictions/Additional Instructions:
Follow-up with your primary care physician to discuss an MRI
If you develop numbness in your middle thighs or inability to empty your bladder return to the emergency department immediately
Interventions
Interventions:
*Risk Screen - Suicide Last Done: 05/30/25 15:00
*General Assessment Last Done: 05/30/25 15:00
*Neglect/Abuse Screening Last Done: 05/30/25 15:00
*ED- Fall Risk Assessment Last Done: 05/30/25 15:27
*ED COVID-19 Vaccine History Last Done: 05/30/25 15:19
*ED Influenza Vaccine History Last Done: 05/30/25 15:19
*Nursing Disposition Last Done: 05/30/25 18:26
ED-Musculoskeletal Assessment Last Done: 05/30/25 15:27
Discharge Date and Time
Discharge Date/Time: 05/30/25 18:00
Print Language: [id number]
[2025-05-30 18:00] VITALS: BP 132/78
== END 2025-05-30 18:00 | disposition home or self-care (01) ==
LOC: EMR 14:42
PROVIDERS: EMERGENCY PHYSICIAN Student in an Organized Health Care Education/Training Program; FAMILY PHYSICIAN Nurse Practitioner Primary Care
DX: M48.061 Spinal stenosis, lumbar region without neurogenic claudication (principal); M51.369 Other intervertebral disc degeneration, lumbar region without mention of lumbar back pain or lower extremity pain; I25.810 Atherosclerosis of coronary artery bypass graft(s) without angina pectoris; I10 Essential (primary) hypertension; E78.00 Pure hypercholesterolemia, unspecified; I73.9 Peripheral vascular disease, unspecified; G62.9 Polyneuropathy, unspecified; F17.200 Nicotine dependence, unspecified, uncomplicated; Z79.02 Long term (current) use of antithrombotics/antiplatelets; Z95.1 Presence of aortocoronary bypass graft; Z95.820 Peripheral vascular angioplasty status with implants and grafts
CPT/HCPCS: 99283; 72110